=== PATIENT | male | born 1940 | race Caucasian/White ===

== ENCOUNTER → 2018-03-04 11:22 | Outpatient (CLI) | payer MEDICARE, OTHER, SELFPAY ==
--- NOTE | 2018-03-04 11:33 | RAD_ITS ---
STUDY: X-RAY - CERVICAL SPINE REASON FOR EXAM: Male, 77 years old. Neck pain TECHNIQUE: 8 view(s) of the cervical spine were obtained. COMPARISON: None FINDINGS: There are degenerative changes of the anterior atlantoaxial articulation. Normal odontoid process. There is an exaggerated cervical lordosis. There is moderate C4 on C5 anterolisthesis which is stable on flexion and extension views. No vertebral body fracture. Facet joints are in normal alignment demonstrate moderate diffuse degenerative change. There is no vertebral body fracture. There is moderate loss of height with prominent endplate change and spur formation noted within the intervertebral disc spaces from C4 through C7. Moderate degenerative change of bilateral uncovertebral joints noted from C3 through C7. Mild to moderate neural foraminal canal narrowing noted at C3-C4, C4-C5, and C5-C6 on the right. The neural foramina are not well profiled on the left. The soft tissue structures are unremarkable. RAD/Cerv Spine Obl/Flex/Ext Comp IMPRESSION: 1. No evidence of acute injury to the cervical spine. 2. 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 Electronically Signed: Patrick Grant MD at 5:04 EDT Tel , Service support ,
== END ==
PROVIDERS: Family Provider Family Medicine; PCP Family Medicine; Visit Provider Psychiatry & Neurology Neurology
DX: M54.2 Cervicalgia (principal)
CPT/HCPCS: 72052

== ENCOUNTER → 2018-06-24 16:15 | Outpatient (CLI) | payer MEDICARE, OTHER, SELFPAY | PROVIDERS: Family Provider Family Medicine; PCP Family Medicine; Visit Provider Internal Medicine Nephrology | DX: I12.9 Hypertensive chronic kidney disease with stage 1 through stage 4 chronic kidney disease, or unspecified chronic kidney disease (principal); N18.3 Chronic kidney disease, stage 3 (moderate) | CPT/HCPCS: 76770 ==

== ENCOUNTER → 2020-05-11 13:59 | Outpatient (CLI) | payer MEDICARE, OTHER, SELFPAY ==
--- NOTE | 2020-05-11 14:03 | CT_ITS ---
STUDY: LOW DOSE CT LUNG CANCER SCREENING REASON FOR EXAM: Male, 79 years old. LUNG SCREEN SMOKER 1PPW X 59 YEARS RADIATION DOSAGE (If Supplied By Facility): CTDIvol = ( 2.01 ) mGy, DLP = ( 74.49 ) mGycm TECHNIQUE: No contrast was administered. Low dose technique was utilized (average mAS-38 and kVp 120). 1.25 mm axial source images with a slice interval of 1.25-mm were reconstructed in lung windows. 2.5 mm axial source images with a slice interval of 2.5-mm were reconstructed in lung windows. 5.0 mm axial source images with a slice interval of 5.0-mm were reconstructed in soft tissue windows. Nodule measured using lung windows on PACS and/or independent workstation with automated measurement of minimum and maximum diameter. Nodule measurement reported as average diameter rounded to the nearest whole number. Growth is defined as an increase ins size of greater than 1.5 mm. COMPARISON: None. FINDINGS: Lung windows show hyperexpanded lungs with emphysematous blebs in both lung nelson. There is fibrotic scarring in the right upper lobe. No suspicious noncalcified mass or nodule. No organized infiltrate, or suspicious groundglass opacifications. There are calcified coronary vessels. There are degenerative bony changes. Peripheral calcifications in the thoracic aorta without aneurysm. CT/Low Dose CT Lung Screening IMPRESSION: Lung-RADS category 2 - Continue annual screening with LDCT in 12 months. IMPORTANT NOTES FOR USE: ACR Lung-RADS Version 1.0 Assessment Categories Release Date: February 13, 2014 Category: Coded 0-4 bases on nodule(s) with highest degree of suspicion. Negative screen is defined as categories 1 and 2; a positive screen is defined as categories 3 and 4. Category 3 and 4A nodules that are unchanged on interval CT should be coded as category 2, and individuals returned to screening in 12 months. Category 4X: Category 3 or 4 nodules with additional imaging findings that increase the suspicion of lung cancer, such as spiculation, GGN that doubles in size in 1 year, enlarged lymph notes, etc. Category Modifiers: S (significant finding unrelated to lung cancer) and C (prior history of treated lung cancer) may be added to the 0-4 Lung-RADS Electronically Signed: Brandt Bridges MD at 14:55 EDT , Service support ,
== END ==
PROVIDERS: PCP Family Medicine; Referring Provider Internal Medicine Pulmonary Disease; Visit Provider Internal Medicine Pulmonary Disease
DX: Z87.891 Personal history of nicotine dependence (principal)
CPT/HCPCS: G0297

== ENCOUNTER → 2020-11-06 15:19 | Outpatient (CLI) | payer MEDICARE, OTHER, SELFPAY ==
[2020-11-08 14:12] LABS: Alpha Antitrypsin Serum 155 mg/dL (101-187)
== END ==
PROVIDERS: PCP Family Medicine; Referring Provider Internal Medicine Pulmonary Disease; Visit Provider Internal Medicine Pulmonary Disease
DX: J44.9 Chronic obstructive pulmonary disease, unspecified (principal); I10 Essential (primary) hypertension
CPT/HCPCS: 36415; 82103

== ENCOUNTER → 2021-05-13 12:21 | Outpatient (CLI) | payer MEDICARE, OTHER, SELFPAY ==
--- NOTE | 2021-05-13 12:32 | CT_ITS ---
STUDY: LOW DOSE CT LUNG CANCER SCREENING REASON FOR EXAM: Male, 80 years old. HX SMOKER. The patient smoked one quarter pack per day for 60 years. RADIATION DOSAGE (If Supplied By Facility): CTDIvol = ( 1.59 ) mGy, DLP = ( 56.79 ) mGycm TECHNIQUE: No contrast was administered. Low dose technique was utilized (average mAS-38 and kVp 120). 1.25 mm axial source images with a slice interval of 1.25-mm were reconstructed in lung windows. 2.5 mm axial source images with a slice interval of 2.5-mm were reconstructed in lung windows. 5.0 mm axial source images with a slice interval of 5.0-mm were reconstructed in soft tissue windows. Nodule measured using lung windows on PACS and/or independent workstation with automated measurement of minimum and maximum diameter. Nodule measurement reported as average diameter rounded to the nearest whole number. Growth is defined as an increase ins size of greater than 1.5 mm. COMPARISON: Comparison is made with prior study dated 05/11/2020. NODULES: Stable 2 mm noncalcified nodule in the peripheral lateral aspect of the right upper lobe as seen on axial image #82. Stable tiny granulomas in the posterolateral aspect of the right upper lobe. Emphysema: Hyperinflation. Diffuse emphysematous changes with centrilobular emphysema worse in the upper lobes. Stable scarring in the right upper lobe as well as in the medial aspect of the right middle lobe. Stable mild linear scarring at the left lung base. Endobronchial lesion: None Aorta: Atherosclerotic calcification. Coronary arteries: Calcified coronary arteries. Mediastinal nodes: Small benign appearing mediastinal lymph nodes. Other chest and abdominal findings: Increased thoracic kyphosis. Demineralization of the thoracic vertebrae with loss of height of multiple thoracic vertebrae. Levoscoliosis. CT/Low Dose CT Lung Screening IMPRESSION: Lung-RADS category 2 - Continue annual screening with LDCT in 12 months. IMPORTANT NOTES FOR USE: ACR Lung-RADS Version 1.1 Assessment Categories Release Date: 2018 Category: Coded 0-4 bases on nodule(s) with highest degree of suspicion. Negative screen is defined as categories 1 and 2; a positive screen is defined as categories 3 and 4. Category 3 and 4A nodules that are unchanged on interval CT should be coded as category 2, and individuals returned to screening in 12 months. Category 4X: Category 3 or 4 nodules with additional imaging findings that increase the suspicion of lung cancer, such as spiculation, GGN that doubles in size in 1 year, enlarged lymph notes, etc. Category Modifiers: S (significant finding unrelated to lung cancer) Electronically Signed: Doroteo Davis MD at 15:06 EDT , Service support ,
== END ==
PROVIDERS: PCP Family Medicine; Referring Provider Internal Medicine Pulmonary Disease; Visit Provider Internal Medicine Pulmonary Disease
DX: Z87.891 Personal history of nicotine dependence (principal)
CPT/HCPCS: 71271

== ENCOUNTER → 2021-05-16 14:28 | Outpatient (CLI) | payer MEDICARE, OTHER, SELFPAY ==
[2021-05-18 11:36] LABS: Alpha Antitrypsin Serum 148 mg/dL (101-187)
== END ==
PROVIDERS: PCP Family Medicine; Referring Provider Internal Medicine Pulmonary Disease; Visit Provider Internal Medicine Pulmonary Disease
DX: E88.01 Alpha-1-antitrypsin deficiency (principal)
CPT/HCPCS: 36415; 82103

== ENCOUNTER → 2021-08-29 14:44 | Outpatient (CLI) | payer MEDICARE, OTHER, SELFPAY ==
[2021-08-31 11:13] LABS: AFP, Tumor Marker 11.6 ng/mL (0.0-8.3)
== END ==
PROVIDERS: PCP Family Medicine; Referring Provider Internal Medicine Pulmonary Disease; Visit Provider Internal Medicine Pulmonary Disease
DX: E88.01 Alpha-1-antitrypsin deficiency (principal)
CPT/HCPCS: 36415; 82105

== ENCOUNTER 2021-10-21 20:35 | Emergency (ER) | payer MEDICARE, OTHER, SELFPAY ==
[2021-10-21 20:36] VITALS: BP 162/104; PULSE 95; RESP 18; TEMP 36.7; O2SAT 92; BMI 21.1
[2021-10-21 22:37] VITALS: BP 171/84; PULSE 65; RESP 16; O2SAT 94
--- NOTE | 2021-10-21 23:09 | RAD_ITS ---
STUDY: X-RAY CHEST REASON FOR EXAM: Male, 80 years old. Cough and weakness. TECHNIQUE: AP COMPARISON: 05/13/2021 CT chest. FINDINGS: No evidence of pneumonia, pulmonary edema, pneumothorax or pleural effusion. Subsegmental linear atelectasis/scarring left lung base unchanged. Mild underlying emphysema. Patient''s chin partially obscures the left lung apex. Cardiac silhouette, hilar and mediastinal contours with no acute findings. Heart size normal. Atherosclerosis and tortuosity of the thoracic aorta. The mediastinum and hilar contours are distorted by scoliosis and positioning but not significantly changed. Degenerative osseous changes with chronic thoracic vertebral body compression fractures and moderate S-shaped scoliosis. No acute osseous abnormality. RAD/Chest 1 View (Portable) IMPRESSION: No acute findings. Electronically Signed: Issac Sanchez MD at 23:53 EST Tel , Service support ,
[2021-10-21 23:37] LABS: Hematocrit 38.4 % (40-54); Hemoglobin 12.6 g/dL (13.0-16.5); Mean Corp Hgb Conc 32.8 g/dL (32-36); Mean Corpuscular Hgb 30.5 pg (27.0-32.0); Mean Platelet Vol. 10.9 fl (6.2-12.0); POSITIVE MORPHOLOGY YES; Platelet Count 202 K/mm3 (150-450); RBC Distribution Width CV 15.9 % (11.6-14.6); RBC Distribution Width SD 54.4 fl (35.1-43.9); Red Blood Count 4.13 M/mm3 (4.6-6.2); White Blood Count 8.9 K/mm3 (4.4-11.0)
[2021-10-21 23:54] LABS: Differential Indicated MANUAL DIFF
[2021-10-21 23:56] VITALS: BP 143/91; PULSE 66; RESP 16; O2SAT 94
[2021-10-22 00:07] LABS: Ammonia < 10.0 umol/L (11-32)
[2021-10-22 00:11] LABS: Neutrophil-Band 1 % (0-5); Neutrophil-Segmented 75 % (47-70); Total Cells Counted 100 (MANUAL DIFF)
[2021-10-22 00:12] LABS: AST(SGOT) 27 U/L (15-37); Absolute Lymphocyte Count 1.16 X10^3/uL (0.83-4.51); Absolute Neutrophil Count 6.8 X10^3/uL (2.0-7.7); Alanine Aminotransfer ALT/SGPT 19 U/L (16-61); Albumin, Serum 3.4 g/dL (3.2-5.0); Alkaline Phosphatase 51 U/L (45-117); Anion Gap 7 (5-15); BUN 25 mg/dL (7-18); BUN/Creat Ratio 17.6 RATIO (10-20); Bilirubin, Direct 0.17 mg/dL (0.00-0.30); Calcium,Total 10.2 mg/dL (8.5-10.1); Chloride 108 mmol/L (98-107); Creatinine, Serum 1.42 mg/dL (0.70-1.30); EST Glomerular Filtration Rate 51 mL/min (>60); Eosinophil 2 % (0-5); Est Glom Filt Rate - Afr Amer 62 mL/min (>60); Estimated Creatinine Clearance 37.13 ml/min; Globulin 4.2 g/dL (2.2-4.2); Glucose 109 mg/dL (74-106); Lymphocyte 13 % (19-41); Lymphocyte # 1.16 X10^3/ul (0.83-4.51); Monocyte 9 % (0-10); Neutrophil # 6.79 X10^3/uL (2.7-7.7); Platelet Estimate ADEQUATE (ADEQ); Potassium 4.1 mmol/L (3.5-5.1); Protein, Total 7.6 g/dL (6.4-8.2); Red Cell Morphology NORM C+C NORMAL (NORM C&C); Sodium Level 139 mmol/L (136-145); Thyroid Stim Hormone (TSH) 1.43 uIU/mL (0.358-3.74)
[2021-10-22 01:07] LABS: Mucous, Urine 0 SEEN /hpf (<or=2+); Squamous Epithelial Cells - UA 0 SEEN /hpf (0-5); White Blood Cells 0 SEEN /hpf (0-5)
[2021-10-22 01:11] LABS: Color, Urine Yellow (Yellow); Glucose, Dipstick Normal (Normal); Ketone-Dipstick 5 mg/dl (Negative); Leukocyte Esterase-Dipstick Negative /ul (Negative); Nitrite-Dipstick Negative (Negative); Occult Blood-Urine 10 /ul (Negative); Protein-Dipstick 30 mg/dl (Negative); Urine Bilirubin Dipstick Negative (Negative); Urine Clarity Clear (Clear); Urine Urobilinogen Normal (Normal)
[2021-10-22 01:21] LABS: Bacteria 1+ /hpf (None Seen); Red Blood Cells-Urine 0-5 SEEN /hpf (0-5)
[2021-10-22 01:35] VITALS: BP 152/67
--- NOTE | 2021-10-22 01:35 | EX.ED.DYSGE1 ---
HPI History of Present Illness Chief Complaint: Confusion Narrative Narrative: Patient is a 80-year-old male with past medical history of Alzheimer's dementia. He stays with his at home who acts as his caregiver. states in the last day he has had some decreased appetite and oral intake. She states that he has just been slightly different than his baseline. She states that she is concerned that he could become dehydrated as he has not been eating or drinking as much in the last day and with his mild change in mental status was concern for infection as well and therefore brings him in for evaluation [facility] Medical History (Updated 10/22/21 @ 02:12 by Osei Ramey) Alzheimer disease Home Medications aspirin [Maada Childrens Aspirin] 81 mg PO DAILY 10/21/21 [History Last Taken Unknown] atenolol 100 mg PO BID 10/21/21 [History Last Taken Unknown] azelastine 1 spray INTRANASAL DAILY 10/21/21 [History Last Taken Unknown] budesonide 0.5 mg INHALATION DAILY 10/21/21 [History Last Taken Unknown] furosemide [Lasix] 40 mg PO DAILY 10/21/21 [History Last Taken Unknown] hydralazine 25 mg PO BID 10/21/21 [History Last Taken Unknown] ipratropium-albuterol 3 ml INHALATION QHS 10/21/21 [History Last Taken Unknown] magnesium 500 mg PO DAILY 10/21/21 [History Last Taken Unknown] mecobalamin (vitamin B12) [B12 Active] 1,000 mcg PO DAILY 10/21/21 [History Last Taken Unknown] memantine 10 mg PO BID 10/21/21 [History Last Taken Unknown] hxxwzymf-ofi-JI-lycopen-lutein [Centrum Silver Men] 1 tab PO DAILY 10/21/21 [History Last Taken Unknown] rivastigmine [Exelon Patch] 13.3 mg TRANSDERMAL DAILY 10/21/21 [History Last Taken Unknown] simvastatin 40 mg PO QHS 10/21/21 [History Last Taken Unknown] cephalexin 500 mg PO TID 7 Days #21 cap 10/22/21 [Rx Last Taken Unknown] Allergy/AdvReac Type Severity Reaction Status Date / Time No Known Allergies Allergy Verified 10/21/21 20:38 Surgical History no surgical history Social History Smoking Status: Current some day smoker tobacco type: cigarettes ROS ROS ED ROS Narrative Please note review of systems may be unreliable secondary to patient's dementia and confusion Constitutional Constitutional ED: Denies chills or fever(s) ENT ENT ED: Denies sore throat Cardiovascular Cardiovascular: Denies chest pain Respiratory/Chest Respiratory/Chest: Denies cough or dyspnea Gastrointestinal Gastrointestinal: Denies abdominal pain, diarrhea, nausea or vomiting Genitourinary Genitourinary ED: Denies dysuria Musculoskeletal Musculoskeletal: Denies myalgias Integumentary Denies rash Neurologic Neurologic: Denies headache(s) Hematologic/Lymphatic Hematologic/Lymphatic: Denies easy bleeding or easy bruising EXAM Physical Exam Const Vital Signs: 10/21/21 20:36 10/21/21 22:37 10/21/21 23:56 Temperature 98.1 F Temperature Source Temporal Pulse Rate 95 65 66 Respiratory Rate 18 16 16 Blood Pressure 162/104 H 171/84 H 143/91 H Blood Pressure Mean 123 113 108 Pulse Ox 92 94 94 Oxygen Delivery Method Room Air Room Air Room Air Positive well nourished and well developed General Appearance ED: well developed HEENT Reports dry mucous membranes Mouth ED: Yes dry mucous membranes Mouth: dry mucous membranes Eyes PERRL and EOMs intact bilaterally Neck supple Neck Narrative: No meningeal signs Resp normal respiratory effort and clear to auscultation bilaterally Cardio regular rate and regular rhythm GI normal to inspection, nondistended, normoactive bowel sounds, non-tender, non-distended and no masses Auscultation: normoactive bowel sounds Palpation: soft Extremity normal to inspection Neuro CN's II-XII intact bilaterally Neuro Narrative: Patient is awake and alert but confused. He is oriented to person but not place and time otherwise are no signs of focal neurologic deficit Sensorium / Orientation: alert Motor Exam: strength 5/5 throughout Psych Psych Narrative: Patient has a depressed/flat affect Skin no rashes or lesions noted Skin Narrative: Skin turgor slightly increased MDM MDM MDM Narrative Medical decision making narrative: Patient presented to the ER afebrile satting in the low to mid 90s on room air. His history and exam is consistent with a delirium worsening his dementia. Secondary to this I did elect to perform a basic work-up. Work-up showed that he has a mild urinary tract infection as well as Covid. Both could be responsible for his change in mental status. However at this time he is not hypoxic and he does not have changes to suggest urosepsis or acute kidney injury. Therefore do not feel there is need for placement and patient can be discharged home Lab Data Attestation: I reviewed the patient's lab results. Labs: Laboratory Results - last 24 hr 10/21/21 10/21/21 10/21/21 23:25 23:25 23:25 WBC 8.9 RBC 4.13 L Hgb 12.6 L Hct 38.4 L MCV 93.0 MCH 30.5 MCHC 32.8 RDW Std Deviation 54.4 H RDW Coeff of Bola 15.9 H Plt Count 202 MPV 10.9 Neut % (Auto) Not Reportable Absolute Neuts (auto) 6.8 Absolute Lymphs (auto) 1.16 Total Counted 100 Neutrophils % (Manual) 75 H Band Neutrophils % 1 Lymphocytes % (Manual) 13 L Monocytes % (Manual) 9 Eosinophils % (Manual) 2 Platelet Estimate ADEQUATE RBC Morphology NORM C+C Sodium 139 Potassium 4.1 Chloride 108 H Carbon Dioxide 24.0 Anion Gap 7 BUN 25 H Creatinine 1.42 H Estim Creat Clear Calc 37.13 Est GFR (MDRD) Af Amer 62 Est GFR (MDRD) Non-Af 51 L BUN/Creatinine Ratio 17.6 Glucose 109 H Calcium 10.2 H Total Bilirubin 0.50 Direct Bilirubin 0.17 AST 27 ALT 19 Alkaline Phosphatase 51 Ammonia < 10.0 L Total Protein 7.6 Albumin 3.4 Globulin 4.2 TSH 1.43 Urine Color Urine Clarity Urine pH Ur Specific Brinklow Urine Protein Urine Glucose (UA) Urine Ketones Urine Occult Blood Urine Nitrite Urine Bilirubin Urine Urobilinogen Ur Leukocyte Esterase Urine RBC Urine WBC Ur Squamous Epith Cells Urine Bacteria Urine Mucus 10/22/21 01:00 WBC RBC Hgb Hct MCV MCH MCHC RDW Std Deviation RDW Coeff of Bola Plt Count MPV Neut % (Auto) Absolute Neuts (auto) Absolute Lymphs (auto) Total Counted Neutrophils % (Manual) Band Neutrophils % Lymphocytes % (Manual) Monocytes % (Manual) Eosinophils % (Manual) Platelet Estimate RBC Morphology Sodium Potassium Chloride Carbon Dioxide Anion Gap BUN Creatinine Estim Creat Clear Calc Est GFR (MDRD) Af Amer Est GFR (MDRD) Non-Af BUN/Creatinine Ratio Glucose Calcium Total Bilirubin Direct Bilirubin AST ALT Alkaline Phosphatase Ammonia Total Protein Albumin Globulin TSH Urine Color Yellow Urine Clarity Clear Urine pH 7.0 Ur Specific [place]ink[place] 1.010 Urine Protein 30 H Urine Glucose (UA) Normal Urine Ketones 5 H Urine Occult Blood 10 H Urine Nitrite Negative Urine Bilirubin Negative Urine Urobilinogen Normal Ur Leukocyte Esterase Negative Urine RBC 0-5 SEEN Urine WBC 0 SEEN Ur Squamous Epith Cells 0 SEEN Urine Bacteria 1+ Urine Mucus 0 SEEN Radiography Diagnostic Testing: Clinical Impression(s) from Imaging Studies Chest X-Ray 10/21/21 23:09 IMPRESSION: No acute findings. Electronically Signed: Issac Sanchez MD at 23:53 EST Tel , Service support , Discharge Plan Triage Chief Complaint: Confusion ED Provider: Abel Zamorano Dx/Rx/DC Orders Clinical Impression: Encephalopathy due to COVID-19 virus, UTI (urinary tract infection) Instructions: Coronavirus Disease 2019 (COVID-19): Caring for Yourself or Others, Urinary Tract Infections in Men, ED Confusion Prescriptions: New cephalexin 500 mg capsule 500 mg PO TID 7 Days Qty: 21 RF: 0 No Action furosemide [Lasix] 40 mg Tablet 40 mg PO DAILY RF: 0 ipratropium-albuterol 0.5 mg-3 mg(2.5 mg base)/3 mL Solution For Nebulization 3 ml INHALATION QHS RF: 0 atenolol 100 mg Tablet 100 mg PO BID RF: 0 hydralazine 25 mg Tablet 25 mg PO BID RF: 0 simvastatin 40 mg Tablet 40 mg PO QHS RF: 0 budesonide 0.5 mg/2 mL Suspension For Nebulization 0.5 mg INHALATION DAILY RF: 0 aspirin [Amada Childrens Aspirin] 81 mg Tablet,Chewable 81 mg PO DAILY RF: 0 azelastine 137 mcg (0.1 %) Aerosol,[place] 1 spray INTRANASAL DAILY RF: 0 memantine 10 mg Tablet 10 mg PO BID RF: 0 Centrum Silver Men 300-600-300 mcg Tablet 1 tab PO DAILY RF: 0 rivastigmine [Exelon Patch] 13.3 mg/24 hour Patch 24 Hour 13.3 mg TRANSDERMAL DAILY RF: 0 magnesium 500 mg Tablet 500 mg PO DAILY RF: 0 B12 Active 1,000 mcg Tablet,Chewable 1,000 mcg PO DAILY RF: 0 Primary Care Provider: Telly Parrish Referrals: Telly Parrish MD [Primary Care Provider] - Disposition Disposition: Home, Self Care Discharge Date/Time: 10/22/21 03:25
[2021-10-22 02:08] VITALS: BP 142/63; PULSE 76; RESP 20; O2SAT 94
[2021-10-22] MEDS: Ceftriaxone 1 GM/50 ML BAG IV (02:10)
[2021-10-22 03:23] VITALS: BP 117/63; PULSE 47; RESP 20; O2SAT 93
== END 2021-10-22 03:25 | disposition home or self-care (01) ==
PROVIDERS: Emergency Provider Emergency Medicine; PCP Family Medicine; Visit Provider Emergency Medicine
DX: U07.1 COVID-19 (principal); G30.9 Alzheimer's disease, unspecified; G93.49 Other encephalopathy; N39.0 Urinary tract infection, site not specified; F17.210 Nicotine dependence, cigarettes, uncomplicated; Z79.899 Other long term (current) drug therapy
CPT/HCPCS: 71045; 80048; 80076; 81001; 82140; 84443; 85025; 87086; 87088; 87426; 96365; 99283; J7030; J7040; J7050

== ENCOUNTER 2022-03-19 11:18 | Outpatient (CLI) | payer MEDICARE, OTHER, SELFPAY ==
[2022-03-21 08:52] LABS: AFP, Tumor Marker 10.6 ng/mL (0.0-8.4)
== END 2022-03-19 23:59 | disposition home or self-care (01) ==
PROVIDERS: PCP Family Medicine; Referring Provider Internal Medicine Pulmonary Disease; Visit Provider Internal Medicine Pulmonary Disease
DX: E88.01 Alpha-1-antitrypsin deficiency (principal)
CPT/HCPCS: 36415; 82105

== ENCOUNTER → 2022-04-25 | Outpatient (CLI) | payer MEDICARE, OTHER, SELFPAY ==
[2022-04-25 17:51] LABS: AST(SGOT) 27 U/L (15-37); Alanine Aminotransfer ALT/SGPT 22 U/L (16-61); Albumin, Serum 3.6 g/dL (3.2-5.0); Alkaline Phosphatase 48 U/L (45-117); Globulin 4.1 g/dL (2.2-4.2); Protein, Total 7.7 g/dL (6.4-8.2)
== END | disposition home or self-care (01) ==
LOC: MTLAB 15:30
PROVIDERS: PCP Family Medicine; Referring Provider Internal Medicine Pulmonary Disease; Visit Provider Internal Medicine Pulmonary Disease
DX: Z79.899 Other long term (current) drug therapy (principal)
CPT/HCPCS: 36415; 80076

== ENCOUNTER → 2022-05-14 | Outpatient (CLI) | payer MEDICARE, OTHER, SELFPAY ==
--- NOTE | 2022-05-14 15:11 | CT_ITS ---
STUDY: LOW DOSE CT LUNG CANCER SCREENING REASON FOR EXAM: Male, 81 years old. [id number]. Patient''s pump catheter one half pack of cigarettes per day for 65 years. RADIATION DOSAGE (If Supplied By Facility): CTDIvol = ( 2.01 ) mGy, DLP = ( 66.95 ) mGycm TECHNIQUE: No contrast was administered. Low dose technique was utilized (average mAS-38 and kVp 120). 1.25 mm axial source images with a slice interval of 1.25-mm were reconstructed in lung windows. 2.5 mm axial source images with a slice interval of 2.5-mm were reconstructed in lung windows. 5.0 mm axial source images with a slice interval of 5.0-mm were reconstructed in soft tissue windows. COMPARISON: Comparison is made with prior study dated 05/13/2021. NODULES: Stable 2 mm noncalcified nodule in the peripheral lateral aspect of the right upper lobe as seen on axial image #89. Emphysema: Hyperinflation. Diffuse emphysematous changes with centrilobular emphysema. Stable scarring and bullous formation in the left lower lung. Mild scarring at the right lung base. Endobronchial lesion: Aorta: Tortuosity and calcification of the thoracic aorta. CORONARY ARTERIES: Coronary artery calcification is seen. Heart: Unremarkable Pulmonary artery: Unremarkable Mediastinal nodes: Small benign appearing mediastinal lymph nodes. Other chest and abdominal findings: Increased kyphosis. Demineralization of multiple thoracic vertebrae with partial collapse of the mid dorsal vertebrae. CT/Low Dose CT Lung Screening IMPRESSION: Lung-RADS category 2 - Continue annual screening with LDCT in 12 months. IMPORTANT NOTES FOR USE: ACR Lung-RADS Version 1.1 Assessment Categories Release Date: 2018 Category: Coded 0-4 bases on nodule(s) with highest degree of suspicion. Negative screen is defined as categories 1 and 2; a positive screen is defined as categories 3 and 4. Category 3 and 4A nodules that are unchanged on interval CT should be coded as category 2, and individuals returned to screening in 12 months. Category 4X: Category 3 or 4 nodules with additional imaging findings that increase the suspicion of lung cancer, such as spiculation, GGN that doubles in size in 1 year, enlarged lymph notes, etc. Category Modifiers: S (significant finding unrelated to lung cancer) Electronically Signed: Doroteo Davis MD at 15:39 EDT ,
== END | disposition home or self-care (01) ==
LOC: CT 15:09
PROVIDERS: Referring Provider Internal Medicine Pulmonary Disease; Visit Provider Internal Medicine Pulmonary Disease
DX: Z87.891 Personal history of nicotine dependence (principal)
CPT/HCPCS: 71271

== ENCOUNTER 2022-08-18 13:00 | Outpatient (RCR) | payer MEDICARE, OTHER, SELFPAY ==
[2022-07-31 10:17] VITALS: BP 128/75; PULSE 86; TEMP 35.8
--- NOTE | 2022-07-31 12:38 | PCM.WC.HP ---
History of Present Illness Date of Service: 07/31/22 Chief Complaint: Right lateral lower extremity wound History of Wound: Patient is a 81-year-old male who presents to the wound care center for a right lower extremity lateral wound. He states he was following with his PCP Dr. Yuri DO for this leg wound of 4 weeks duration. They were instructed to continue elevation of lower extremities to control his bilateral lower extremity edema. PCP increased furosemide from 20 mg to 40 mg for 7 days to aid in decreasing edema however this was not effective. Compression stockings were discussed by his PCP. states they have just been applying Neosporin and a Band-Aid but it has not been improving. Patient was referred to the wound care center by his PCP for nonhealing right lower lateral extremity ulceration. ON LICENSE OF [facility] Medical History (Updated 07/31/22 @ 12:[address] Kurt Lopez, DPM) Alzheimer disease Home Medications aspirin 81 mg chewable tablet 81 mg PO DAILY 10/21/21 [History Last Taken Unknown] atenolol 100 mg tablet 100 mg PO BID 10/21/21 [History Last Taken Unknown] azelastine 137 mcg (0.1 %) nasal spray aerosol 1 spray intranasal DAILY 10/21/21 [History Last Taken Unknown] budesonide 0.5 mg/2 mL suspension for nebulization 0.5 mg inhalation DAILY 10/21/21 [History Last Taken Unknown] furosemide 40 mg tablet (Lasix) 40 mg PO DAILY 10/21/21 [History Last Taken Unknown] hydralazine 25 mg tablet 25 mg PO BID 10/21/21 [History Last Taken Unknown] ipratropium 0.5 mg-albuterol 3 mg (2.5 mg base)/3 mL nebulization soln 3 ml inhalation QHS 10/21/21 [History Last Taken Unknown] magnesium 500 mg tablet 500 mg PO DAILY 10/21/21 [History Last Taken Unknown] mecobalamin (vitamin B12) 1,000 mcg chewable tablet (B12 Active) 1,000 mcg PO DAILY 10/21/21 [History Last Taken Unknown] memantine 10 mg tablet 10 mg PO BID 10/21/21 [History Last Taken Unknown] ssooybfl-asx-uxirl acid 300 mcg-lycopene 600 mcg-lutein 300 mcg tablet (Centrum Silver Men) 1 tab PO DAILY 10/21/21 [History Last Taken Unknown] rivastigmine 13.3 mg/24 hour transdermal patch (Exelon Patch) 13.3 mg transdermal DAILY 10/21/21 [History Last Taken Unknown] simvastatin 40 mg tablet 40 mg PO QHS 10/21/21 [History Last Taken Unknown] cephalexin 500 mg capsule 500 mg PO TID 7 days #21 caps 10/22/21 [Rx Last Taken Unknown] Allergy/AdvReac Type Severity Reaction Status Date / Time No Known Allergies Allergy Verified 10/21/21 20:38 Social History Smoking Status: Current some day smoker tobacco type: cigarettes ROS Constitutional Constitutional: Denies anorexia, chills, fatigue, fever(s) or malaise Eyes Eyes: Denies blurry vision, change in vision or double vision ENT HEENT: Denies nasal congestion, nasal discharge or sore throat Cardiovascular Cardiovascular: Denies chest pain, claudication or palpitations Respiratory/Chest Respiratory/Chest: Denies cough, shortness of breath at rest or wheezing Gastrointestinal Gastrointestinal: Denies abdominal pain, constipation, diarrhea, nausea or vomiting Genitourinary Genitourinary: Denies dysuria, hematuria, urinary frequency, urinary hesitancy, urinary incontinence or urinary urgency Musculoskeletal Musculoskeletal: Denies joint pain, joint stiffness, joint swelling, numbness or tingling Integumentary Integumentary: Denies jaundice, pruritus or rash Neurologic Neurologic: Denies dizziness, numbness or seizures Endocrine Endocrinology: Denies cold intolerance or heat intolerance Hematologic/Lymphatic Hematologic/Lymphatic: Denies easy bleeding, easy bruising or lymphadenopathy Vital Signs Vital Signs Vital Signs: 07/31/22 10:17 Temperature 96.5 F L Temperature Source Temporal Pulse Rate 86 Blood Pressure 128/75 H Blood Pressure Mean 92 Blood Pressure Source Monitor Blood Pressure Position Sitting Blood Pressure Location Right Arm Physical Exam Const alert, oriented x3 and no apparent distress General Appearance: cooperative HEENT normocephalic Eyes General Eye: normal appearance of both eyes Neck General: normal visual inspection Lymph Lymphatic: no lymphadenopathy noted and no lymphedema noted Resp normal respiratory effort Cardio regular rate and regular rhythm Extremity normal capillary refill, no joint enlargement, no calf tenderness and no pedal edema General Extremity: edema bilateral Peripheral Pulses: Yes posterior tibial pulses present bilateral and dorsalis pedis pulses present bilateral Skin no rashes or lesions noted, skin turgor normal and no jaundice General Skin Exam: venous stasis Wound Narrative: Right lateral lower extremity ulceration noted. Ulceration demonstrates mixed fiber granular layer. No signs of infection. No palpable bogginess, no palpable fluctuance, no purulent drainage, no malodor, no erythema. Neuro oriented x3 and moves all extremities Debridement Note Debridement Note Wound debrided: Right lateral lower extremity and right anterior lower extremity Laterality: Right Wound Grade/Stage: Rendon stage I Type of Debridement: Excisional debridement Anesthesia Used: 5% Lidocaine Gel Depth: Down to and including healthy tissue and in the subcutaneous layer Percentage of wound debrided: 100 Instrument Used: 3mm curette and - (1 mm curette) Tissue Removed: Fibrous, devitalized subcutaneous, biofilm, slough Severity: Fat Layer Exposed Amount of bleeding with debridement: Mild Bleeding Controlled with: Compression and gauze Patient tolerated procedure: Patient tolerated procedure well Post-Debridement Measurements and Additional Note: Post-Debridement Measurements/Treatment WC - Nurse 1 - General Ulcer Assessment Start: 07/31/22 10:17 Freq: Status: Active Protocol: HUGO Activity Type Activity Date Activity User E-sign Co-sign Detail Recorded Client Recorded Date Recorded By Document 07/31/22 10:17 FABIAN [id number] 07/31/22 10:30 FABIAN 07/31/22 10:17 WC - Today's Visit Information Type of service Initial Visit Arrival Mode Ambulatory Patient Identification Verified (Name & Yes ) Vital Signs Temperature (97.8 F-99.1 F) 96.5 F L Temperature Source Temporal Pulse Rate (60-100) 86 Pulse Location Monitor Blood Pressure (90/60-120/80) 128/75 H Blood Pressure Mean 92 Source Monitor Position Sitting Blood Pressure Location Right Arm History Since Last Visit- (Skip if this is Patient's initial visit) Have you changed medications since your No last visit? Any new allergies or adverse reactions No Had a fall/change in ADL's that may No increase risk of falls Signs or symptoms of abuse and/or No neglect since last visit Have you been in the hospital since your No last visit? Has dressing in place as prescribed Yes Has compression in place as prescribed N/A Has offloadiing in place as prescribed N/A Experienced any changes in pain level or No management Left Footwear Regular Shoe Right Footwear Regular Shoe Pain Scale: 0-10 Numeric Is Patient Pain Free? Yes - Nurse 1 - General Ulcer Measurement Start: 07/31/22 10:17 Freq: Status: Active Protocol: Activity Type Activity Date Activity User E-sign Co-sign Detail Recorded Client Recorded Date Recorded By Document 07/31/22 10:17 [id number] 07/31/22 10:30 FABIAN 07/31/22 10:17 Wound Center Nurse 1 #1 Right Lower Extremity -Current Size (cm) - Length 1 -Current Size (cm) - Width 2.3 -Current Size (cm) - Depth 0.1 -Total Square Cm 2.3 -Exudate Amt Small -Exudate Type Serosanguineous -Wound Margin Distinct, Outline Attached -Granulation Amt Small (1-33%) -Granulation Quality [place] -Necrosis Amt Medium (34-66%) -Necrotic Tissue Type Adherent Slough -Texture (Briana-wound Skin Appearance) Assessed, Scarring -Moisture (Briana-wound Skin Appearance) No Abnormality, Assessed -Color (Briana-wound Skin Appearance) No Abnormality, Assessed -Temperature (Briana-wound Skin No Abnormality Appearance) (Pt Warm) -Tenderness on Palpation (Briana-wound No Skin Appearance) -Ulcer Cleansing Rinsed/ Irrigated with Saline -Foul Odor after Cleansing No -Anesthetic Used 5% Lidocaine Gel Right Calf (cm) 36.5 Right Ankle (cm) 25.6 Left Calf (cm) 37.2 Left Ankle (cm) 28 WC - Nurse 3 - General Ulcer D/C NN Start: 07/31/22 10:17 Freq: Status: Active Protocol: Activity Type Activity Date Activity User E-sign Co-sign Detail Recorded Client Recorded Date Recorded By Document 07/31/22 11:07 [id number] 07/31/22 11:08 FABIAN 07/31/22 11:07 Wound Care Nurse 3 #1 Right Lower Extremity -Ulcer Cleansing Rinsed/ Irrigated with Saline -Primary Dressing Applied Promogran Renetta Matter -Primary Dressing Covered/Secured with Dry Gauze, Secured with Tape -Promogran Renetta Matter 1 Right -Multi-Layered Wrap Application Unna Boot - Bilateral ($) -Unna Boots (Bilat) ($) 2 Pain Scale: 0-10 Numeric Is Patient Pain Free? Yes WC - Visit Discharge Discharge Condition Stable Ambulatory Status Ambulatory Transportation Private Auto Accompanied by Assessment/Plan Assessment/Plan (1) Venous insufficiency (chronic) (peripheral): CODE(S): I87.2 - Venous insufficiency (chronic) (peripheral) (2) Non-pressure chronic ulcer of right calf with fat layer exposed: CODE(S): L97.212 - Non-pressure chronic ulcer of right calf with fat layer exposed PLAN: Plan Patient seen and evaluated Right anterior lower extremity ulceration measures 1.4 cm x 0.4 cm. Ulceration underwent debridement as noted in clinical panel above. Right anterior lateral lower extremity ulceration measures 0.5 cm x 0.5 cm x 0.3 cm. Ulceration underwent debridement as noted in clinical panel above. Ulcerative sites demonstrate no local signs of infection. It is noted the patient demonstrates +2 pitting edema to bilateral lower extremities. There is no hemosiderin deposition or erythema of the lower extremities. There is slight rubor noted to the circumferential lower extremity bilaterally. I discussed compression stockings again with the patient today and his to aid in edema control. Discussed elevation of lower extremities at all times of rest. I discussed with patient and his that controlling the edema is essential for his wound healing and prevention of recurrence of his wounds. Renetta applied to both lower extremity ulcerations of the right leg. Patient was placed in bilateral Unna boots and will return for dressing change on Thursday. I discussed local signs of infection to observe for. Discussed with patient and if he notices any increased redness about the ulcerative site moving up the leg, purulent drainage from the wound site, malodor from the wound, or if he experiences any nausea, vomiting, fever greater than 101 degrees, or chills that he needs to go to the ED as these are signs of a progressing infection. He and his voiced understanding of this discussion today. He will return to the wound care center in 1 week for continued local wound care. They are to call sooner for any questions or concerns. Note: [employer] speech recognition career services representative software was used to create portions of this document. Sound-alike and misspelled words, as well as other career services representative errors may be contained in the documentation. The problems addressed require a low medical decision making level which includes two or more minor problems, a stable chronic illness, or an acute uncomplicated illness or injury. The medical decision making level is low. There is noted low risk of morbidity after considering this treatment plan and diagnostic data.
[2022-08-04 14:38] VITALS: BP 177/89; PULSE 57; RESP 18; TEMP 36.4
--- NOTE | 2022-08-07 10:53 | PCM.WC.PN ---
History of Present Illness Date of Service: 08/07/22 Chief Complaint: Right lateral lower extremity wound History of Wound: Patient is a 81-year-old male who presents to the wound care center for a right lower extremity lateral wound. He states he was following with his PCP Dr. Yuri DO for this leg wound of 4 weeks duration. They were instructed to continue elevation of lower extremities to control his bilateral lower extremity edema. PCP increased furosemide from 20 mg to 40 mg for 7 days to aid in decreasing edema however this was not effective. Compression stockings were discussed by his PCP. states they have just been applying Neosporin and a Band-Aid but it has not been improving. Patient was referred to the wound care center by his PCP for nonhealing right lower lateral extremity ulceration. Subjective Subjective Patient is a 81-year-old male who presents to the wound care center today for follow-up of right lower extremity ulceration x2. His notes that the compression dressings have aided in decreasing his edema. He denies any constitutional symptoms today. He denies any further complaints today. Objective Data Objective Data Vital Signs: Vital Signs Temp Pulse Resp BP 97.5 F L 57 L 18 177/89 H 08/04/22 14:38 08/04/22 14:38 08/04/22 14:38 08/04/22 14:38 Physical Exam Const alert, oriented x3 and no apparent distress General Appearance: cooperative HEENT normocephalic Eyes General Eye: normal appearance of both eyes Neck General: normal visual inspection Lymph Lymphatic: no lymphadenopathy noted and no lymphedema noted Resp normal respiratory effort Cardio regular rate and regular rhythm Extremity normal capillary refill, no joint enlargement, no calf tenderness and no pedal edema General Extremity: edema bilateral Skin no rashes or lesions noted, skin turgor normal and no jaundice General Skin Exam: venous stasis Wound Narrative: Right lateral lower extremity ulceration noted. Ulceration demonstrates mixed fiber granular layer. No signs of infection. No palpable bogginess, no palpable fluctuance, no purulent drainage, no malodor, no erythema. Neuro oriented x3 and moves all extremities Debridement Note Debridement Note Wound debrided: Right lower extremity ulceration x2 Laterality: Right Wound Grade/Stage: Rendon stage I Type of Debridement: Excisional debridement Anesthesia Used: 5% Lidocaine Gel Depth: Down to and including healthy tissue and in the subcutaneous layer Percentage of wound debrided: 100 Instrument Used: 3mm curette Tissue Removed: Fibrous, devitalized subcutaneous, biofilm, slough Severity: Fat Layer Exposed Amount of bleeding with debridement: Mild Bleeding Controlled with: Compression and gauze Patient tolerated procedure: Patient tolerated procedure well Post-Debridement Measurements and Additional Note: Post-Debridement Measurements/Treatment - Nurse 1 - General Ulcer Assessment Start: 07/31/22 10:17 Freq: Status: Active Protocol: HUGO Activity Type Activity Date Activity User E-sign Co-sign Detail Recorded Client Recorded Date Recorded By Document 07/31/22 10:17 KR [id number] 07/31/22 10:30 KR Document 08/04/22 14:38 DL [id number] 08/04/22 14:50 DL 07/31/22 08/04/22 10:17 14:38 WC - Today's Visit Information Type of service Initial Visit Nurse-only Visit Arrival Mode Ambulatory Ambulatory Transfer Assistance None Patient Identification Verified (Name & Yes Yes ) Patient Requires Transmission-Based No Precautions Vital Signs Temperature (97.8 F-99.1 F) 96.5 F L 97.5 F L Temperature Source Temporal Temporal Pulse Rate (60-100) 86 57 L Pulse Location Monitor Monitor Respiratory Rate (12-18) 18 Respiratory rate source Observation Blood Pressure (90/60-120/80) 128/75 H 177/89 H Blood Pressure Mean (mm Hg) 92 118 Source Monitor Monitor Position Sitting Blood Pressure Location Right Arm History Since Last Visit- (Skip if this is Patient's initial visit) Have you changed medications since your No No last visit? Any new allergies or adverse reactions No No Had a fall/change in ADL's that may No No increase risk of falls Signs or symptoms of abuse and/or No No neglect since last visit Have you been in the hospital since your No No last visit? Has dressing in place as prescribed Yes Yes Has compression in place as prescribed N/A Yes Has offloadiing in place as prescribed N/A N/A Experienced any changes in pain level or No management Left Footwear Regular Shoe Right Footwear Regular Shoe Pain Scale: 0-10 Numeric Is Patient Pain Free? Yes Yes [facility] Nurse 1 - General Ulcer Measurement Start: 07/31/22 10:17 Freq: Status: Active Protocol: Activity Type Activity Date Activity User E-sign Co-sign Detail Recorded Client Recorded Date Recorded By Document 07/31/22 10:17 KR [id number] 07/31/22 10:30 KR Document 08/04/22 14:38 DL [id number] 08/04/22 14:50 DL 07/31/22 08/04/22 10:17 14:38 Wound Center Nurse 1 #2 Right LE Lateral -Exudate Amt Small -Exudate Type Serosanguineous -Texture (Briana-wound Skin Appearance) Scarring -Moisture (Briana-wound Skin Appearance) Dry/Scaly -Color (Briana-wound Skin Appearance) Hemosiderin Staining -Temperature (Briana-wound Skin No Abnormality Appearance) (Pt Warm) -Tenderness on Palpation (Briana-wound No Skin Appearance) -Ulcer Cleansing Soap and Water -Foul Odor after Cleansing No #1 Right Lower Extremity ANT -Current Size (cm) - Length 1 -Current Size (cm) - Width 2.3 -Current Size (cm) - Depth 0.1 -Total Square Cm 2.3 -Photo Taken No -Exudate Amt Small Small -Exudate Type Serosanguineous Serosanguineous -Wound Margin Distinct, Distinct, Outline Outline Attached Attached -Granulation Amt Small (1-33%) -Granulation Quality [place] -Necrosis Amt Medium (34-66%) -Necrotic Tissue Type Adherent Slough -Texture (Briana-wound Skin Appearance) Assessed, Scarring Scarring -Moisture (Briana-wound Skin Appearance) No Abnormality, Dry/Scaly Assessed -Color (Briana-wound Skin Appearance) No Abnormality, Hemosiderin Assessed Staining -Temperature (Briana-wound Skin No Abnormality No Abnormality Appearance) (Pt Warm) (Pt Warm) -Tenderness on Palpation (Briana-wound No No Skin Appearance) -Ulcer Cleansing Rinsed/ Soap and Water Irrigated with Saline -Foul Odor after Cleansing No No -Anesthetic Used 5% Lidocaine Gel Right Calf (cm) 36.5 Right Ankle (cm) 25.6 Left Calf (cm) 37.2 Left Ankle (cm) 28 WC - Nurse 2 - General Ulcer CM Notes Start: 07/31/22 10:17 Freq: Status: Active Protocol: Activity Type Activity Date Activity User E-sign Co-sign Detail Recorded Client Recorded Date Recorded By Document 07/31/22 12:38 PL [id number] 07/31/22 12:42 PL 07/31/22 12:38 Wound Center Nurse 2 #2 Right LE Lateral -Time 10:57 -Correct Patient Yes -Correct Side, Site, Position Yes -Correct Procedure Yes -Procedure Performed Yes -Type of Procedure Debridement -Clinical Debridement Subcutaneous -Tissue Removed Subcutaneous -Post Debridement (cm) - Length 0.5 -Post Debridement (cm) - Width 0.5 -Post Debridement (cm) - Depth 0.3 -Total Square (Post) (cm) 0.25 -Area of Debridement (cm) - Length 0.5 -Area of Debridement (cm) - Width 0.5 -Total Square (Area) (cm) 0.25 -Tunneling No -Undermining/Tunneling No -Circular Undermining No -Wound/Ulcer Outcome Not Healed -Ulcer Cleansing Rinsed/ Irrigated with Saline -Foul Odor after Cleansing No -Bioengineered Tissue No -Bleeding Controlled with NA -Treatment Response Procedure Tolerated Well -Debridement - Subq, 1st 20sq cm Yes #1 Right Lower Extremity ANT -Time 10:57 -Correct Patient Yes -Correct Side, Site, Position Yes -Correct Procedure Yes -Procedure Performed Yes -Type of Procedure Debridement -Clinical Debridement Subcutaneous -Tissue Removed Subcutaneous -Post Debridement (cm) - Length 1.0 -Post Debridement (cm) - Width 0.4 -Post Debridement (cm) - Depth 0.1 -Total Square (Post) (cm) 0.40 -Area of Debridement (cm) - Length 1.0 -Area of Debridement (cm) - Width 0.4 -Total Square (Area) (cm) 0.40 -Tunneling No -Undermining/Tunneling No -Circular Undermining No -Wound/Ulcer Outcome Not Healed -Ulcer Cleansing Rinsed/ Irrigated with Saline -Foul Odor after Cleansing No -Bioengineered Tissue No -Bleeding Controlled with Pressure -Treatment Response Procedure Tolerated Well -Debridement - Subq, 1st 20sq cm No Pain Scale: 0-10 Numeric Is Patient Pain Free? Yes WC - Nurse 3 - General Ulcer D/C NN Start: 07/31/22 10:17 Freq: Status: Active Protocol: Activity Type Activity Date Activity User E-sign Co-sign Detail Recorded Client Recorded Date Recorded By Document 07/31/22 11:07 [id number] 07/31/22 11:08 KR Document 08/04/22 14:38 DL [id number] 08/04/22 14:50 DL 07/31/22 08/04/22 11:07 14:38 Wound Care Nurse 3 #2 Right LE Lateral -Ulcer Cleansing Rinsed/ Irrigated with Saline -Foul Odor after Cleansing No -Negative Pressure Wound Therapy N/A -Primary Dressing Applied Promogran Renetta Matter -Promogran Renetta Matter 1 #1 Right Lower Extremity ANT -Ulcer Cleansing Rinsed/ Soap and Water Irrigated with Saline -Foul Odor after Cleansing No -Primary Dressing Applied Promogran Renetta Matter -Other Dressing Renetta -Primary Dressing Covered/Secured with Dry Gauze, Secured with Tape -Promogran Renetta Matter 1 Right -Multi-Layered Wrap Application Unna Boot - Unna Boot - Bilateral ($) Bilateral ($) -Unna Boots (Bilat) ($) 2 1 Treatment Response Procedure Tolerated Well Vital Signs Temperature (97.8 F-99.1 F) 97.5 F L Temperature Source Temporal Pulse Rate (60-100) 57 L Pulse Location Monitor Respiratory Rate (12-18) 18 Respiratory rate source Observation Blood Pressure (90/60-120/80) 177/89 H Blood Pressure Mean (mm Hg) 118 Source Monitor Pain Scale: 0-10 Numeric Is Patient Pain Free? Yes Yes WC - Visit Discharge Discharge Condition Stable Stable Ambulatory Status Ambulatory Ambulatory Transportation Private Auto Private Auto Accompanied by Assessment/Plan Assessment/Plan (1) Venous insufficiency (chronic) (peripheral): CODE(S): I87.2 - Venous insufficiency (chronic) (peripheral) (2) Non-pressure chronic ulcer of right calf with fat layer exposed: CODE(S): L97.212 - Non-pressure chronic ulcer of right calf with fat layer exposed PLAN: Plan Patient seen and evaluated Right anterior lower extremity ulceration measures 1.6 cm x 0.7 cm. Ulceration underwent debridement as noted in clinical panel above. Right anterior lateral lower extremity ulceration measures 0.6 cm x 0.4 cm x 0.2 cm. Ulceration underwent debridement as noted in clinical panel above. Ulcerative sites demonstrate no local signs of infection. Edema decreased to bilateral lower extremities with compression dressing versus previous visit. There is no hemosiderin deposition or erythema of the lower extremities. I discussed compression stockings again with the patient today and his to aid in edema control. Discussed elevation of lower extremities at all times of rest. I have discussed with patient and his that controlling the edema is essential for his wound healing and prevention of recurrence of his wounds. Renetta applied to both lower extremity ulcerations of the right leg. Patient was placed in bilateral Unna boots and will return for dressing change on Thursday. I discussed local signs of infection to observe for. Discussed with patient and if he notices any increased redness about the ulcerative site moving up the leg, purulent drainage from the wound site, malodor from the wound, or if he experiences any nausea, vomiting, fever greater than 101 degrees, or chills that he needs to go to the ED as these are signs of a progressing infection. He and his voiced understanding of this discussion today. He will return to the wound care center in 2 weeks for continued local wound care. They are to call sooner for any questions or concerns. Note: [employer] speech recognition bilingual speech language pathologist software was used to create portions of this document. Sound-alike and misspelled words, as well as other bilingual speech language pathologist errors may be contained in the documentation.
[2022-08-07 12:19] VITALS: BP 154/72; PULSE 69; TEMP 36.8
[2022-08-11 15:44] VITALS: BP 115/61; PULSE 50; RESP 18; TEMP 36.3
[2022-08-14 09:10] VITALS: BP 150/80; PULSE 62; RESP 20; TEMP 36.3
[2022-08-18 13:29] VITALS: BP 189/102; PULSE 51; TEMP 36.2
== END 2022-08-18 23:59 | disposition home or self-care (01) ==
LOC: WC 13:00
PROVIDERS: Visit Provider Student in an Organized Health Care Education/Training Program
DX: L97.212 Non-pressure chronic ulcer of right calf with fat layer exposed (principal); I87.2 Venous insufficiency (chronic) (peripheral); Z79.82 Long term (current) use of aspirin; R60.0 Localized edema; F17.210 Nicotine dependence, cigarettes, uncomplicated
CPT/HCPCS: 11042; 29580; 99213; G0463

== ENCOUNTER 2022-09-04 09:15 | Outpatient (RCR) | payer MEDICARE, OTHER, SELFPAY ==
[2022-08-19 00:08] VITALS: BP 189/102; PULSE 51; RESP 20; TEMP 36.2
[2022-08-21 08:51] VITALS: BP 128/75; PULSE 64; TEMP 36.5
--- NOTE | 2022-08-21 09:13 | PCM.WC.PN ---
History of Present Illness Date of Service: 08/21/22 Chief Complaint: Right lateral lower extremity wound History of Wound: Patient is a 81-year-old male who presents to the wound care center for a right lower extremity lateral wound. He states he was following with his PCP Dr. Yuri DO for this leg wound of 4 weeks duration. They were instructed to continue elevation of lower extremities to control his bilateral lower extremity edema. PCP increased furosemide from 20 mg to 40 mg for 7 days to aid in decreasing edema however this was not effective. Compression stockings were discussed by his PCP. states they have just been applying Neosporin and a Band-Aid but it has not been improving. Patient was referred to the wound care center by his PCP for nonhealing right lower lateral extremity ulceration. Subjective Subjective Patient is a 81-year-old male who presents to the wound care center today for follow-up of right lower extremity ulceration x2.? His notes that the compression dressings have aided in decreasing his edema.? states she believes the wounds are making good progress. He denies any constitutional symptoms today.?He denies any further complaints today. Objective Data Objective Data Vital Signs: Vital Signs Temp Pulse Resp BP 97.7 F L 64 20 H 128/75 H 08/21/22 08:51 08/21/22 08:51 08/19/22 00:08 08/21/22 08:51 Physical Exam Const alert, oriented x3 and no apparent distress General Appearance: cooperative HEENT normocephalic Eyes General Eye: normal appearance of both eyes Neck General: normal visual inspection Lymph Lymphatic: no lymphadenopathy noted and no lymphedema noted Resp normal respiratory effort Cardio regular rate and regular rhythm Extremity normal capillary refill, no joint enlargement, no calf tenderness and no pedal edema Skin no rashes or lesions noted, skin turgor normal and no jaundice Wound Narrative: Right lateral lower extremity ulceration x 2 noted.? Ulcerations demonstrate mixed fibro-granular layer.? No signs of infection.? No palpable bogginess, no palpable fluctuance, no purulent drainage, no malodor, no erythema. Neuro moves all extremities Debridement Note Debridement Note Wound debrided: Right anterior and right medial lower extremity ulceration Laterality: Right Wound Grade/Stage: Rendon stage I Type of Debridement: Excisional debridement Anesthesia Used: 5% Lidocaine Gel Depth: Down to and including healthy tissue and in the subcutaneous layer Percentage of wound debrided: 100 Instrument Used: 3mm curette Tissue Removed: Fibrous, devitalized subcutaneous, biofilm, slough Severity: Fat Layer Exposed Amount of bleeding with debridement: Mild Bleeding Controlled with: Compression and gauze Patient tolerated procedure: Patient tolerated procedure well Post-Debridement Measurements and Additional Note: Post-Debridement Measurements/Treatment ESHA - Nurse 1 - General Ulcer Assessment Start: 08/21/22 08:51 Freq: Status: Active Protocol: HUGO Activity Type Activity Date Activity User E-sign Co-sign Detail Recorded Client Recorded Date Recorded By Document 08/21/22 08:51 FABIAN [id number] 08/21/22 08:59 KR 08/21/22 08:51 WC - Today's Visit Information Type of service Follow-up Visit (Physician/STATION DETECTIVE ) Arrival Mode Ambulatory Patient Identification Verified (Name & Yes ) Vital Signs Temperature (97.8 F-99.1 F) 97.7 F L Temperature Source Temporal Pulse Rate (60-100) 64 Pulse Location Monitor Blood Pressure (90/60-120/80) 128/75 H Blood Pressure Mean (mm Hg) 92 Source Monitor Position Sitting Blood Pressure Location Left Arm History Since Last Visit- (Skip if this is Patient's initial visit) Have you changed medications since your No last visit? Any new allergies or adverse reactions No Had a fall/change in ADL's that may No increase risk of falls Signs or symptoms of abuse and/or No neglect since last visit Have you been in the hospital since your No last visit? Has dressing in place as prescribed Yes Has compression in place as prescribed Yes Has offloadiing in place as prescribed N/A Experienced any changes in pain level or No management Left Footwear Regular Shoe Right Footwear Regular Shoe Pain Scale: 0-10 Numeric Is Patient Pain Free? Yes - Nurse 1 - General Ulcer Measurement Start: 08/21/22 08:51 Freq: Status: Active Protocol: Activity Type Activity Date Activity User E-sign Co-sign Detail Recorded Client Recorded Date Recorded By Document 08/21/22 08:51 FABIAN [id number] 08/21/22 08:59 FABIAN 08/21/22 08:51 Wound Center Nurse 1 #2 Right LE Lateral -Current Size (cm) - Length 0.3 -Current Size (cm) - Width 0.3 -Current Size (cm) - Depth 0.1 -Total Square Cm 0.09 -Exudate Amt Small -Exudate Type Serosanguineous -Wound Margin Distinct, Outline Attached -Granulation Amt Small (1-33%) -Granulation Quality [place] -Necrosis Amt Small (1-33%) -Necrotic Tissue Type Adherent Slough -Texture (Briana-wound Skin Appearance) Assessed, Scarring -Moisture (Briana-wound Skin Appearance) No Abnormality, Assessed -Color (Briana-wound Skin Appearance) No Abnormality, Assessed -Temperature (Briana-wound Skin No Abnormality Appearance) (Pt Warm) -Tenderness on Palpation (Briana-wound No Skin Appearance) -Ulcer Cleansing Soap and Water -Foul Odor after Cleansing No -Anesthetic Used 5% Lidocaine Gel #1 Right Lower Extremity ANT -Current Size (cm) - Length 0.2 -Current Size (cm) - Width 0.2 -Current Size (cm) - Depth 0.1 -Total Square Cm 0.04 -Exudate Amt Small -Exudate Type Serosanguineous -Wound Margin Distinct, Outline Attached -Granulation Amt Small (1-33%) -Granulation Quality [place] -Necrosis Amt Small (1-33%) -Necrotic Tissue Type Adherent Slough -Texture (Briana-wound Skin Appearance) Assessed, Scarring -Moisture (Briana-wound Skin Appearance) No Abnormality, Assessed -Color (Briana-wound Skin Appearance) No Abnormality, Assessed -Temperature (Briana-wound Skin No Abnormality Appearance) (Pt Warm) -Tenderness on Palpation (Briana-wound No Skin Appearance) -Ulcer Cleansing Soap and Water -Foul Odor after Cleansing No -Anesthetic Used 5% Lidocaine Gel Right Calf (cm) 29.8 Right Ankle (cm) 25.2 Left Calf (cm) 30.6 Left Ankle (cm) 26.6 Assessment/Plan Assessment/Plan (1) Non-pressure chronic ulcer of right calf with fat layer exposed: CODE(S): L97.212 - Non-pressure chronic ulcer of right calf with fat layer exposed (2) Venous insufficiency (chronic) (peripheral): CODE(S): I87.2 - Venous insufficiency (chronic) (peripheral) PLAN: Plan Patient seen and evaluated Right anterior lower extremity ulceration measures 1.2 cm x 0.7 cm x 0.1cm.? Ulceration underwent debridement as noted in clinical panel above. Right anterior lateral lower extremity ulceration measures 0.5 cm x 0.3 cm x 0.1 cm.? Ulceration underwent debridement as noted in clinical panel above. Ulcerative sites continue to demonstrate good reduction in size versus previous visit. Ulcerative sites demonstrate no local signs of infection. Edema decreased to bilateral lower extremities with compression dressing versus previous visit. There is no hemosiderin deposition or erythema of the lower extremities. I discussed compression stockings again with the patient today and his to aid in edema control.? Discussed elevation of lower extremities at all times of rest.? I have discussed with patient and his that controlling the edema is essential for his wound healing and prevention of recurrence of his wounds. Collagen powder and PHMB dressing applied to both lower extremity ulcerations of the right leg.? Patient was placed in bilateral Unna boots and will return for dressing change on Thursday. I discussed local signs of infection to observe for.? Discussed with patient and if he notices any increased redness about the ulcerative site moving up the leg, purulent drainage from the wound site, malodor from the wound, or if he experiences any nausea, vomiting, fever greater than 101 degrees, or chills that he needs to go to the ED as these are signs of a progressing infection.? He and his voiced understanding of this discussion today. He will return to the wound care center in 1 week for continued local wound care.? They are to call sooner for any questions or concerns. Note: [employer] speech recognition manager actuarial software was used to create portions of this document. Sound-alike and misspelled words, as well as other manager actuarial errors may be contained in the documentation.
[2022-08-25 15:15] VITALS: BP 149/81; PULSE 49; TEMP 35.8
--- NOTE | 2022-08-28 10:09 | PCM.WC.PN ---
History of Present Illness Date of Service: 08/28/22 Chief Complaint: Right lateral lower extremity wound History of Wound: Patient is a 81-year-old male who presents to the wound care center for a right lower extremity lateral wound. He states he was following with his PCP Dr. Yuri DO for this leg wound of 4 weeks duration. They were instructed to continue elevation of lower extremities to control his bilateral lower extremity edema. PCP increased furosemide from 20 mg to 40 mg for 7 days to aid in decreasing edema however this was not effective. Compression stockings were discussed by his PCP. states they have just been applying Neosporin and a Band-Aid but it has not been improving. Patient was referred to the wound care center by his PCP for nonhealing right lower lateral extremity ulceration. Subjective Subjective Patient is a 81-year-old male who presents to the wound care center today for follow-up of right lower extremity ulceration x2.? His notes that the compression dressings have aided in decreasing his edema.? states she believes the wounds are making progressing well.? He denies any constitutional symptoms today.?He denies any further complaints today. Objective Data Objective Data Vital Signs: Vital Signs Temp Pulse Resp BP 96.4 F L 49 L 20 H 149/81 H 08/25/22 15:15 08/25/22 15:15 08/19/22 00:08 08/25/22 15:15 Physical Exam Const alert, oriented x3 and no apparent distress General Appearance: cooperative HEENT normocephalic Eyes General Eye: normal appearance of both eyes Neck General: normal visual inspection Lymph Lymphatic: no lymphadenopathy noted and no lymphedema noted Resp normal respiratory effort Cardio regular rate and regular rhythm Extremity normal capillary refill, no joint enlargement, no calf tenderness and no pedal edema Skin no rashes or lesions noted, skin turgor normal and no jaundice Wound Narrative: Right lateral lower extremity ulceration x 2 noted.? Ulcerations demonstrate mixed fibro-granular layer.? No signs of infection.? No palpable bogginess, no palpable fluctuance, no purulent drainage, no malodor, no erythema. Neuro moves all extremities Debridement Note Debridement Note Wound debrided: Right lower extremity x2 Laterality: Right Wound Grade/Stage: Rendon stage I Type of Debridement: Excisional debridement Anesthesia Used: 5% Lidocaine Gel Depth: Down to and including healthy tissue and in the subcutaneous layer Percentage of wound debrided: 100 Instrument Used: 3mm curette Tissue Removed: Fibrous, devitalized subcutaneous, biofilm, slough Severity: Fat Layer Exposed Amount of bleeding with debridement: Mild Bleeding Controlled with: Compression and gauze Patient tolerated procedure: Patient tolerated procedure well Post-Debridement Measurements and Additional Note: Post-Debridement Measurements/Treatment WC - Nurse 1 - General Ulcer Assessment Start: 08/21/22 08:51 Freq: Status: Active Protocol: HUGO Activity Type Activity Date Activity User E-sign Co-sign Detail Recorded Client Recorded Date Recorded By Document 08/21/22 08:51 KR [id number] 08/21/22 08:59 KR Document 08/25/22 15:15 AK [id number] 08/25/22 15:18 AK 08/21/22 08/25/22 08:51 15:15 WC - Today's Visit Information Type of service Follow-up Visit Nurse-only (Physician/BRASSWIND INSTRUMENT REPAIRER Visit ) Arrival Mode Ambulatory Ambulatory Patient Identification Verified (Name & Yes Yes ) Patient Requires Transmission-Based No Precautions Vital Signs Temperature (97.8 F-99.1 F) 97.7 F L 96.4 F L Temperature Source Temporal Temporal Pulse Rate (60-100) 64 49 L Pulse Location Monitor Monitor Blood Pressure (90/60-120/80) 128/75 H 149/81 H Blood Pressure Mean (mm Hg) 92 103 Source Monitor Monitor Position Sitting Blood Pressure Location Left Arm History Since Last Visit- (Skip if this is Patient's initial visit) Have you changed medications since your No No last visit? Any new allergies or adverse reactions No No Had a fall/change in ADL's that may No No increase risk of falls Signs or symptoms of abuse and/or No No neglect since last visit Have you been in the hospital since your No No last visit? Has dressing in place as prescribed Yes Yes Has compression in place as prescribed Yes Yes Has offloadiing in place as prescribed N/A N/A Experienced any changes in pain level or No No management Left Footwear Regular Shoe Regular Shoe Right Footwear Regular Shoe Regular Shoe Pain Scale: 0-10 Numeric Is Patient Pain Free? Yes Yes ESHA Triana Nurse 1 - General Ulcer Measurement Start: 08/21/22 08:51 Freq: Status: Active Protocol: Activity Type Activity Date Activity User E-sign Co-sign Detail Recorded Client Recorded Date Recorded By Document 08/21/22 08:51 KR [id number] 08/21/22 08:59 KR 08/21/22 08:51 Wound Center Nurse 1 #2 Right LE Lateral -Current Size (cm) - Length 0.3 -Current Size (cm) - Width 0.3 -Current Size (cm) - Depth 0.1 -Total Square Cm 0.09 -Exudate Amt Small -Exudate Type Serosanguineous -Wound Margin Distinct, Outline Attached -Granulation Amt Small (1-33%) -Granulation Quality [place] -Necrosis Amt Small (1-33%) -Necrotic Tissue Type Adherent Slough -Texture (Briana-wound Skin Appearance) Assessed, Scarring -Moisture (Briana-wound Skin Appearance) No Abnormality, Assessed -Color (Briana-wound Skin Appearance) No Abnormality, Assessed -Temperature (Briana-wound Skin No Abnormality Appearance) (Pt Warm) -Tenderness on Palpation (Briana-wound No Skin Appearance) -Ulcer Cleansing Soap and Water -Foul Odor after Cleansing No -Anesthetic Used 5% Lidocaine Gel #1 Right Lower Extremity ANT -Current Size (cm) - Length 0.2 -Current Size (cm) - Width 0.2 -Current Size (cm) - Depth 0.1 -Total Square Cm 0.04 -Exudate Amt Small -Exudate Type Serosanguineous -Wound Margin Distinct, Outline Attached -Granulation Amt Small (1-33%) -Granulation Quality [place] -Necrosis Amt Small (1-33%) -Necrotic Tissue Type Adherent Slough -Texture (Briana-wound Skin Appearance) Assessed, Scarring -Moisture (Briana-wound Skin Appearance) No Abnormality, Assessed -Color (Briana-wound Skin Appearance) No Abnormality, Assessed -Temperature (Briana-wound Skin No Abnormality Appearance) (Pt Warm) -Tenderness on Palpation (Briana-wound No Skin Appearance) -Ulcer Cleansing Soap and Water -Foul Odor after Cleansing No -Anesthetic Used 5% Lidocaine Gel Right Calf (cm) 29.8 Right Ankle (cm) 25.2 Left Calf (cm) 30.6 Left Ankle (cm) 26.6 WC - Nurse 2 - General Ulcer CM Notes Start: 08/21/22 08:51 Freq: Status: Active Protocol: Activity Type Activity Date Activity User E-sign Co-sign Detail Recorded Client Recorded Date Recorded By Document 08/21/22 11:58 PL [id number] 08/21/22 12:00 PL 08/21/22 11:58 Wound Center Nurse 2 #2 Right LE Lateral -Time 09:16 -Correct Patient Yes -Correct Side, Site, Position Yes -Correct Procedure Yes -Procedure Performed Yes -Type of Procedure Debridement -Clinical Debridement Subcutaneous -Tissue Removed Subcutaneous -Post Debridement (cm) - Length 0.5 -Post Debridement (cm) - Width 0.3 -Post Debridement (cm) - Depth 0.1 -Total Square (Post) (cm) 0.15 -Area of Debridement (cm) - Length 0.5 -Area of Debridement (cm) - Width 0.3 -Total Square (Area) (cm) 0.15 -Tunneling No -Undermining/Tunneling No -Circular Undermining No -Wound/Ulcer Outcome Not Healed -Ulcer Cleansing Rinsed/ Irrigated with Saline -Foul Odor after Cleansing No -Bioengineered Tissue No -Bleeding Controlled with Pressure -Treatment Response Procedure Tolerated Well -Debridement - Subq, 1st 20sq cm No #1 Right Lower Extremity ANT -Time 09:16 -Correct Patient Yes -Correct Side, Site, Position Yes -Correct Procedure Yes -Procedure Performed Yes -Type of Procedure Debridement -Clinical Debridement Subcutaneous -Tissue Removed Subcutaneous -Post Debridement (cm) - Length 1.2 -Post Debridement (cm) - Width 0.7 -Post Debridement (cm) - Depth 0.1 -Total Square (Post) (cm) 0.84 -Area of Debridement (cm) - Length 1.2 -Area of Debridement (cm) - Width 0.7 -Total Square (Area) (cm) 0.84 -Tunneling No -Undermining/Tunneling No -Circular Undermining No -Wound/Ulcer Outcome Not Healed -Ulcer Cleansing Rinsed/ Irrigated with Saline -Foul Odor after Cleansing No -Bioengineered Tissue No -Bleeding Controlled with Pressure -Treatment Response Procedure Tolerated Well -Debridement - Subq, 1st 20sq cm Yes Pain Scale: 0-10 Numeric Is Patient Pain Free? Yes WC - Nurse 3 - General Ulcer D/C NN Start: 08/21/22 08:51 Freq: Status: Active Protocol: Activity Type Activity Date Activity User E-sign Co-sign Detail Recorded Client Recorded Date Recorded By Document 08/21/22 09:25 ML [id number] 08/21/22 09:27 ML Document 08/25/22 15:15 AK [id number] 08/25/22 15:18 AK 08/21/22 08/25/22 09:25 15:15 Wound Care Nurse 3 #2 Right LE Lateral -Ulcer Cleansing Rinsed/ Soap and Water Irrigated with Saline -Foul Odor after Cleansing No -Negative Pressure Wound Therapy N/A -Other Dressing collegen powder collagen PMB ,amd,unna -Primary Dressing Covered/Secured with Dry Gauze #1 Right Lower Extremity ANT -Ulcer Cleansing Rinsed/ Soap and Water Irrigated with Saline -Other Dressing collegen powder collagen PMB ,amd,unna -Primary Dressing Covered/Secured with Dry Gauze pancho -Lotion applied to leg before No compression wrap -Multi-Layered Wrap Application Unna Boot - Bilateral ($) -Unna Boots (Bilat) ($) 2 Left -Multi-Layered Wrap Application Unna Boot - Bilateral ($) -Unna Boots (Bilat) ($) 2 Vital Signs Temperature (97.8 F-99.1 F) 96.4 F L Temperature Source Temporal Pulse Rate (60-100) 49 L Pulse Location Monitor Blood Pressure (90/60-120/80) 149/81 H Blood Pressure Mean (mm Hg) 103 Source Monitor Pain Scale: 0-10 Numeric Is Patient Pain Free? Yes Yes WC - Visit Discharge Discharge Condition Stable Ambulatory Status Ambulatory Transportation Private Auto Accompanied by Medication Reconcilliation completed & Yes provided to patient/care provider Clinical Summary of Care Provided Yes Assessment/Plan Assessment/Plan (1) Non-pressure chronic ulcer of right calf with fat layer exposed: CODE(S): L97.212 - Non-pressure chronic ulcer of right calf with fat layer exposed (2) Venous insufficiency (chronic) (peripheral): CODE(S): I87.2 - Venous insufficiency (chronic) (peripheral) PLAN: Plan Patient seen and evaluated Right anterior lower extremity ulceration measures 1.2 cm x 0.7 cm x 0.1cm.? Ulceration underwent debridement as noted in clinical panel above. Right anterior lateral lower extremity ulceration measures 0.5 cm x 0.3 cm x 0.1 cm.? Ulceration underwent debridement as noted in clinical panel above. Ulcerative sites continue to demonstrate good reduction in size versus previous visit. I will be looking to obtain approval for an advanced wound care product for application at next visit. Ulcerative sites demonstrate no local signs of infection. Edema decreased to bilateral lower extremities with compression dressing versus previous visit. There is no hemosiderin deposition or erythema of the lower extremities. I discussed compression stockings again with the patient today and his to aid in edema control.? Discussed elevation of lower extremities at all times of rest.? I have discussed with patient and his that controlling the edema is essential for his wound healing and prevention of recurrence of his wounds. Collagen powder and PHMB dressing applied to both lower extremity ulcerations of the right leg.? Patient was placed in bilateral Tubigrip stocking. I discussed local signs of infection to observe for.? Discussed with patient and if he notices any increased redness about the ulcerative site moving up the leg, purulent drainage from the wound site, malodor from the wound, or if he experiences any nausea, vomiting, fever greater than 101 degrees, or chills that he needs to go to the ED as these are signs of a progressing infection.? He and his voiced understanding of this discussion today. He will return to the wound care center in 1 week for continued local wound care.? They are to call sooner for any questions or concerns. Note: [employer] speech recognition addictions counselor assistant software was used to create portions of this document. Sound-alike and misspelled words, as well as other addictions counselor assistant errors may be contained in the documentation.
[2022-08-28 10:14] VITALS: BP 149/62; PULSE 69; TEMP 36.3
[2022-09-04 09:27] VITALS: BP 149/74; PULSE 72; TEMP 35.7
--- NOTE | 2022-09-04 09:44 | PCM.WC.PN ---
History of Present Illness Date of Service: 09/04/22 Chief Complaint: Right lateral lower extremity wound History of Wound: Patient is a 81-year-old male who presents to the wound care center for a right lower extremity lateral wound. He states he was following with his PCP Dr. Yuri DO for this leg wound of 4 weeks duration. They were instructed to continue elevation of lower extremities to control his bilateral lower extremity edema. PCP increased furosemide from 20 mg to 40 mg for 7 days to aid in decreasing edema however this was not effective. Compression stockings were discussed by his PCP. states they have just been applying Neosporin and a Band-Aid but it has not been improving. Patient was referred to the wound care center by his PCP for nonhealing right lower lateral extremity ulceration. Subjective Subjective Patient is a 81-year-old male who presents to the wound care center today for follow-up of right lower extremity ulceration x2.? His notes that the compression dressings have aided in decreasing his edema.? states she believes the wounds are progressing well and she notices a difference in size.? He denies any constitutional symptoms today.?He denies any further complaints today. Objective Data Objective Data Vital Signs: Vital Signs Temp Pulse Resp BP 96.2 F L 72 20 H 149/74 H 09/04/22 09:27 09/04/22 09:27 08/19/22 00:08 09/04/22 09:27 Physical Exam Const alert, oriented x3 and no apparent distress General Appearance: cooperative HEENT normocephalic Eyes General Eye: normal appearance of both eyes Neck General: normal visual inspection Lymph Lymphatic: no lymphadenopathy noted and no lymphedema noted Resp normal respiratory effort Cardio regular rate and regular rhythm Extremity normal capillary refill, no joint enlargement, no calf tenderness and no pedal edema Skin no rashes or lesions noted, skin turgor normal and no jaundice Wound Narrative: Right lateral lower extremity ulceration x 2 noted.? Ulcerations demonstrate mixed fibro-granular layer.? No signs of infection.? No palpable bogginess, no palpable fluctuance, no purulent drainage, no malodor, no erythema. Neuro moves all extremities Debridement Note Debridement Note Wound debrided: Right lower extremity x2 Laterality: Right Wound Grade/Stage: Rendon stage I Type of Debridement: Excisional debridement Anesthesia Used: 5% Lidocaine Gel Depth: Down to and including healthy tissue and in the subcutaneous layer Percentage of wound debrided: 100 Instrument Used: - (1 mm curette) Tissue Removed: Fibrous, devitalized subcutaneous, biofilm, slough Severity: Fat Layer Exposed Amount of bleeding with debridement: Mild Bleeding Controlled with: Compression and gauze Patient tolerated procedure: Patient tolerated procedure well Post-Debridement Measurements and Additional Note: Post-Debridement Measurements/Treatment WC - Nurse 1 - General Ulcer Assessment Start: 08/21/22 08:51 Freq: Status: Active Protocol: HUGO Activity Type Activity Date Activity User E-sign Co-sign Detail Recorded Client Recorded Date Recorded By Document 08/21/22 08:51 KR [id number] 08/21/22 08:59 KR Document 08/25/22 15:15 AK [id number] 08/25/22 15:18 AK Document 08/28/22 10:14 AK [id number] 08/28/22 10:16 AK Document 09/04/22 09:27 AK [id number] 09/04/22 09:31 AK 08/21/22 08/25/22 08/28/22 08:51 15:15 10:14 - Today's Visit Information Type of service Follow-up Visit Nurse-only Follow-up Visit (Physician/MANIFOLD BUILDER Visit (Physician/MANIFOLD BUILDER ) ) Arrival Mode Ambulatory Ambulatory Ambulatory Patient Identification Verified (Name & Yes Yes Yes ) Patient Requires Transmission-Based No No Precautions Safety Precautions NA Vital Signs Temperature (97.8 F-99.1 F) 97.7 F L 96.4 F L 97.3 F L Temperature Source Temporal Temporal Temporal Pulse Rate (60-100) 64 49 L 69 Pulse Location Monitor Monitor Monitor Blood Pressure (90/60-120/80) 128/75 H 149/81 H 149/62 H Blood Pressure Mean (mm Hg) 92 103 91 Source Monitor Monitor Monitor Position Sitting Blood Pressure Location Left Arm History Since Last Visit- (Skip if this is Patient's initial visit) Have you changed medications since your No No No last visit? Any new allergies or adverse reactions No No No Had a fall/change in ADL's that may No No No increase risk of falls Signs or symptoms of abuse and/or No No No neglect since last visit Have you been in the hospital since your No No No last visit? Has dressing in place as prescribed Yes Yes Yes Has compression in place as prescribed Yes Yes Yes Has offloadiing in place as prescribed N/A N/A N/A Experienced any changes in pain level or No No No management Left Footwear Regular Shoe Regular Shoe Regular Shoe Right Footwear Regular Shoe Regular Shoe Regular Shoe Pain Scale: 0-10 Numeric Is Patient Pain Free? Yes Yes Yes 09/04/22 09:27 - Today's Visit Information Type of service Follow-up Visit (Physician/MANIFOLD BUILDER ) Arrival Mode Ambulatory Patient Identification Verified (Name & Yes ) Patient Requires Transmission-Based No Precautions Safety Precautions NA Vital Signs Temperature (97.8 F-99.1 F) 96.2 F L Temperature Source Temporal Pulse Rate (60-100) 72 Pulse Location Monitor Blood Pressure (90/60-120/80) 149/74 H Blood Pressure Mean (mm Hg) 99 Source Monitor Position Blood Pressure Location History Since Last Visit- (Skip if this is Patient's initial visit) Have you changed medications since your No last visit? Any new allergies or adverse reactions No Had a fall/change in ADL's that may No increase risk of falls Signs or symptoms of abuse and/or No neglect since last visit Have you been in the hospital since your No last visit? Has dressing in place as prescribed Yes Has compression in place as prescribed N/A Has offloadiing in place as prescribed N/A Experienced any changes in pain level or No management Left Footwear Regular Shoe Right Footwear Regular Shoe Pain Scale: 0-10 Numeric Is Patient Pain Free? Yes - Nurse 1 - General Ulcer Measurement Start: 08/21/22 08:51 Freq: Status: Active Protocol: Activity Type Activity Date Activity User E-sign Co-sign Detail Recorded Client Recorded Date Recorded By Document 08/21/22 08:51 KR [id number] 08/21/22 08:59 KR Document 08/28/22 10:14 AK [id number] 08/28/22 10:16 AK Document 09/04/22 09:27 AK [id number] 09/04/22 09:31 AK 08/21/22 08/28/22 09/04/22 08:51 10:14 09:27 Wound Center Nurse 1 #2 Right LE Lateral -Combined with other wound No No -Current Size (cm) - Length 0.3 1 0.5 -Current Size (cm) - Width 0.3 0.5 0.4 -Current Size (cm) - Depth 0.1 0.1 0.1 -Total Square Cm 0.09 0.5 0.20 -Photo Taken Yes Yes -Tunneling No No -Undermining/Tunneling No No -Circular Undermining No No -Change in Wound Grade/Stage No No -Exudate Amt Small Small Small -Exudate Type Serosanguineous Serosanguineous Serosanguineous -Wound Margin Distinct, Distinct, Distinct, Outline Outline Outline Attached Attached Attached -Granulation Amt Small (1-33%) None Present (0 None Present (0 %) %) -Granulation Quality Paramount Paramount,Red Paramount -Slough/Fibrin Yes No -Necrosis Amt Small (1-33%) Small (1-33%) None Present (0 %) -Necrotic Tissue Type Adherent Slough Adherent Slough -Structure Exposed N/A N/A -Texture (Briana-wound Skin Appearance) Assessed, No Abnormality, Assessed,Not Scarring Assessed Assessed -Moisture (Briana-wound Skin Appearance) No Abnormality, No Abnormality, No Abnormality, Assessed Assessed Assessed -Color (Briana-wound Skin Appearance) No Abnormality, No Abnormality, No Abnormality, Assessed Assessed Assessed -Temperature (Briana-wound Skin No Abnormality No Abnormality No Abnormality Appearance) (Pt Warm) (Pt Warm) (Pt Warm) -Tenderness on Palpation (Briana-wound No No No Skin Appearance) -Ulcer Cleansing Soap and Water Rinsed/ Rinsed/ Irrigated with Irrigated with Saline Saline -Foul Odor after Cleansing No No No -Anesthetic Used 5% Lidocaine 5% Lidocaine 5% Lidocaine Gel Gel Gel #1 Right Lower Extremity ANT -Current Size (cm) - Length 0.2 -Current Size (cm) - Width 0.2 -Current Size (cm) - Depth 0.1 -Total Square Cm 0.04 -Exudate Amt Small -Exudate Type Serosanguineous -Wound Margin Distinct, Outline Attached -Granulation Amt Small (1-33%) -Granulation Quality Paramount -Necrosis Amt Small (1-33%) -Necrotic Tissue Type Adherent Slough -Texture (Briana-wound Skin Appearance) Assessed, Scarring -Moisture (Briana-wound Skin Appearance) No Abnormality, Assessed -Color (Briana-wound Skin Appearance) No Abnormality, Assessed -Temperature (Briana-wound Skin No Abnormality Appearance) (Pt Warm) -Tenderness on Palpation (Briana-wound No Skin Appearance) -Ulcer Cleansing Soap and Water -Foul Odor after Cleansing No -Anesthetic Used 5% Lidocaine Gel Lower Limb Edema Present No Right Calf (cm) 29.8 28 30 Right Ankle (cm) 25.2 22 22 Right Foot (cm) 27.5 Left Calf (cm) 30.6 23 Left Ankle (cm) 26.6 WC - Nurse 2 - General Ulcer CM Notes Start: 08/21/22 08:51 Freq: Status: Active Protocol: Activity Type Activity Date Activity User E-sign Co-sign Detail Recorded Client Recorded Date Recorded By Document 08/21/22 11:58 PL [id number] 08/21/22 12:00 PL Document 08/28/22 12:09 PL [id number] 08/28/22 12:10 PL 08/21/22 08/28/22 11:58 12:09 Wound Center Nurse 2 #2 Right LE Lateral -Time 09:16 01:01 -Correct Patient Yes Yes -Correct Side, Site, Position Yes Yes -Correct Procedure Yes Yes -Procedure Performed Yes Yes -Type of Procedure Debridement Debridement -Clinical Debridement Subcutaneous Subcutaneous -Tissue Removed Subcutaneous Subcutaneous -Post Debridement (cm) - Length 0.5 0.5 -Post Debridement (cm) - Width 0.3 0.3 -Post Debridement (cm) - Depth 0.1 0.1 -Total Square (Post) (cm) 0.15 0.15 -Area of Debridement (cm) - Length 0.5 0.5 -Area of Debridement (cm) - Width 0.3 0.3 -Total Square (Area) (cm) 0.15 0.15 -Tunneling No No -Undermining/Tunneling No No -Circular Undermining No No -Wound/Ulcer Outcome Not Healed Not Healed -Ulcer Cleansing Rinsed/ Rinsed/ Irrigated with Irrigated with Saline Saline -Foul Odor after Cleansing No No -Bioengineered Tissue No No -Bleeding Controlled with Pressure Pressure -Treatment Response Procedure Procedure Tolerated Well Tolerated Well -Debridement - Subq, 1st 20sq cm No No #1 Right Lower Extremity ANT -Time 09:16 10:10 -Correct Patient Yes Yes -Correct Side, Site, Position Yes Yes -Correct Procedure Yes Yes -Procedure Performed Yes Yes -Type of Procedure Debridement Debridement -Clinical Debridement Subcutaneous Subcutaneous -Tissue Removed Subcutaneous Subcutaneous -Post Debridement (cm) - Length 1.2 1.2 -Post Debridement (cm) - Width 0.7 0.7 -Post Debridement (cm) - Depth 0.1 0.1 -Total Square (Post) (cm) 0.84 0.84 -Area of Debridement (cm) - Length 1.2 1.2 -Area of Debridement (cm) - Width 0.7 0.7 -Total Square (Area) (cm) 0.84 0.84 -Tunneling No No -Undermining/Tunneling No No -Circular Undermining No No -Wound/Ulcer Outcome Not Healed Not Healed -Ulcer Cleansing Rinsed/ Rinsed/ Irrigated with Irrigated with Saline Saline -Foul Odor after Cleansing No No -Bioengineered Tissue No No -Bleeding Controlled with Pressure Pressure -Treatment Response Procedure Procedure Tolerated Well Tolerated Well -Debridement - Subq, 1st 20sq cm Yes Yes Pain Scale: 0-10 Numeric Is Patient Pain Free? Yes Yes WC - Nurse 3 - General Ulcer D/C NN Start: 08/21/22 08:51 Freq: Status: Active Protocol: Activity Type Activity Date Activity User E-sign Co-sign Detail Recorded Client Recorded Date Recorded By Document 08/21/22 09:25 ML [id number] 08/21/22 09:27 ML Document 08/25/22 15:15 AK [id number] 08/25/22 15:18 AK Document 08/28/22 11:45 AK [id number] 08/28/22 11:47 AK 08/21/22 08/25/22 08/28/22 09:25 15:15 11:45 Wound Care Nurse 3 #2 Right LE Lateral -Ulcer Cleansing Rinsed/ Soap and Water Rinsed/ Irrigated with Irrigated with Saline Saline -Foul Odor after Cleansing No No -Negative Pressure Wound Therapy N/A N/A -Other Dressing collegen powder collagen PMB ,amd,unna -Primary Dressing Covered/Secured with Dry Gauze Dry Gauze, Secured with Tape #1 Right Lower Extremity ANT -Ulcer Cleansing Rinsed/ Soap and Water Rinsed/ Irrigated with Irrigated with Saline Saline -Foul Odor after Cleansing No -Negative Pressure Wound Therapy N/A -Other Dressing collegen powder collagen PMB collagen amd ,amd,unna -Primary Dressing Covered/Secured with Dry Gauze Dry Gauze, Secured with Tape pancho -Lotion applied to leg before No compression wrap -Multi-Layered Wrap Application Unna Boot - Bilateral ($) -Unna Boots (Bilat) ($) 2 Left -Lotion applied to leg before No compression wrap -Multi-Layered Wrap Application Unna Boot - Multi-Layer Bilateral ($) Comp - Left ($) -Unna Boots (Bilat) ($) 2 Vital Signs Temperature (97.8 F-99.1 F) 96.4 F L Temperature Source Temporal Pulse Rate (60-100) 49 L Pulse Location Monitor Blood Pressure (90/60-120/80) 149/81 H Blood Pressure Mean (mm Hg) 103 Source Monitor Pain Scale: 0-10 Numeric Is Patient Pain Free? Yes Yes Yes WC - Visit Discharge Discharge Condition Stable Stable Ambulatory Status Ambulatory Ambulatory Transportation Private Auto Private Auto Accompanied by Medication Reconcilliation completed & Yes Yes provided to patient/care provider Clinical Summary of Care Provided Yes Yes Assessment/Plan Assessment/Plan (1) Non-pressure chronic ulcer of right calf with fat layer exposed: CODE(S): L97.212 - Non-pressure chronic ulcer of right calf with fat layer exposed (2) Venous insufficiency (chronic) (peripheral): CODE(S): I87.2 - Venous insufficiency (chronic) (peripheral) PLAN: Plan Patient seen and evaluated Right anterior lower extremity ulceration measures 1.0 cm x 0.6 cm x 0.1cm.? Ulceration underwent debridement as noted in clinical panel above. Right anterior lateral lower extremity ulceration measures 0.4 cm x 0.2cm x 0.1 cm.? Ulceration underwent debridement as noted in clinical panel above. Ulcerative sites continue to demonstrate good reduction in size versus previous visit. We will continue current course. Ulcerative sites demonstrate no local signs of infection. Edema decreased to bilateral lower extremities with compression dressing versus previous visit. There is no hemosiderin deposition or erythema of the lower extremities. I discussed compression stockings again with the patient today and his to aid in edema control.? Discussed elevation of lower extremities at all times of rest.? I have discussed with patient and his that controlling the edema is essential for his wound healing and prevention of recurrence of his wounds. Collagen powder and PHMB dressing applied to both lower extremity ulcerations of the right leg.? Patient was placed in bilateral Tubigrip stocking. At home for next week he will continue with Renetta and Hydrogel to the anterior site and collagen powder to lateral site. I discussed local signs of infection to observe for.? Discussed with patient and if he notices any increased redness about the ulcerative site moving up the leg, purulent drainage from the wound site, malodor from the wound, or if he experiences any nausea, vomiting, fever greater than 101 degrees, or chills that he needs to go to the ED as these are signs of a progressing infection.? He and his voiced understanding of this discussion today. He will return to the wound care center in 2 weeks for continued local wound care.? They are to call sooner for any questions or concerns. Note: [employer] speech recognition leasing consultant software was used to create portions of this document. Sound-alike and misspelled words, as well as other leasing consultant errors may be contained in the documentation.
== END 2022-09-17 23:59 | disposition home or self-care (01) ==
LOC: WC 09:15
PROVIDERS: Visit Provider Student in an Organized Health Care Education/Training Program
DX: L97.212 Non-pressure chronic ulcer of right calf with fat layer exposed (principal); R60.0 Localized edema; I87.2 Venous insufficiency (chronic) (peripheral)
CPT/HCPCS: 11042; 29580; 29581

== ENCOUNTER 2022-10-09 09:15 | Outpatient (RCR) | payer MEDICARE, OTHER, SELFPAY ==
[2022-09-18 00:11] VITALS: BP 149/74; PULSE 72; RESP 20; TEMP 35.7
--- NOTE | 2022-09-18 09:29 | PN.PCM_ITS ---
History of Present Illness Date of Service: 09/18/22 Chief Complaint: Right lateral lower extremity wound History of Wound: Patient is a 81-year-old male who presents to the wound care center for a right lower extremity lateral wound. He states he was following with his PCP Dr. Yuri DO for this leg wound of 4 weeks duration. They were instructed to continue elevation of lower extremities to control his bilateral lower extremity edema. PCP increased furosemide from 20 mg to 40 mg for 7 days to aid in decreasing edema however this was not effective. Compression stockings were discussed by his PCP. states they have just been applying Neosporin and a Band-Aid but it has not been improving. Patient was referred to the wound care center by his PCP for nonhealing right lower lateral extremity ulceration. Subjective Subjective Patient is a 81-year-old male who presents to the wound care center today for follow-up of right lower extremity ulceration x2.? His notes that the compression dressings have aided in decreasing his edema.? states she believes the wounds are progressing well and she notices continued reduction in size.? He denies any constitutional symptoms today.?He denies any further complaints today. Objective Data Objective Data Vital Signs: Vital Signs Temp Pulse Resp BP 96.2 F L 72 20 H 149/74 H 09/18/22 00:11 09/18/22 00:11 09/18/22 00:11 09/18/22 00:11 Physical Exam Const alert, oriented x3 and no apparent distress General Appearance: cooperative HEENT normocephalic Eyes General Eye: normal appearance of both eyes Neck General: normal visual inspection Lymph Lymphatic: no lymphadenopathy noted and no lymphedema noted Resp normal respiratory effort Cardio regular rate and regular rhythm Extremity normal capillary refill, no joint enlargement, no calf tenderness and no pedal edema Skin no rashes or lesions noted, skin turgor normal and no jaundice Wound Narrative: Right lateral lower extremity ulceration x 2 noted.? Ulcerations demonstrate mixed fibro-granular layer.? No signs of infection.? No palpable bogginess, no palpable fluctuance, no purulent drainage, no malodor, no erythema. Neuro moves all extremities Debridement Note Debridement Note Wound debrided: Right anterior lower extremity Laterality: Right Wound Grade/Stage: Rendon stage I Type of Debridement: Excisional debridement Anesthesia Used: 5% Lidocaine Gel Depth: Down to and including healthy tissue and in the subcutaneous layer Percentage of wound debrided: 100 Instrument Used: - (1 mm curette) Tissue Removed: Fibrous, devitalized subcutaneous, biofilm, slough Severity: Fat Layer Exposed Amount of bleeding with debridement: Mild Bleeding Controlled with: Compression and gauze Patient tolerated procedure: Patient tolerated procedure well Assessment/Plan Assessment/Plan (1) Non-pressure chronic ulcer of right calf with fat layer exposed: CODE(S): L97.212 - Non-pressure chronic ulcer of right calf with fat layer exposed (2) Venous insufficiency (chronic) (peripheral): CODE(S): I87.2 - Venous insufficiency (chronic) (peripheral) PLAN: Plan Patient seen and evaluated Right anterior lower extremity ulceration measures 0.6 cm x 0.6 cm x 0.1cm.? Ulceration underwent debridement as noted in clinical panel above. Right anterior lateral lower extremity ulceration has healed today. Ulcerative sites continue to demonstrate good reduction in size versus previous visit. We will continue current course. Ulcerative sites demonstrate no local signs of infection. Edema decreased to bilateral lower extremities with compression dressing versus previous visit. There is no hemosiderin deposition or erythema of the lower extremities. I discussed compression stockings again with the patient today and his to aid in edema control.? Discussed elevation of lower extremities at all times of rest.? I have discussed with patient and his that controlling the edema is essential for his wound healing and prevention of recurrence of his wounds. Collagen powder and PHMB dressing applied to both lower extremity ulcerations of the right leg.? Patient was placed in bilateral Tubigrip stocking. I discussed local signs of infection to observe for.? Discussed with patient and if he notices any increased redness about the ulcerative site moving up the leg, purulent drainage from the wound site, malodor from the wound, or if he experiences any nausea, vomiting, fever greater than 101 degrees, or chills that he needs to go to the ED as these are signs of a progressing infection.? He and his voiced understanding of this discussion today. He will return to the wound care center in 1 weeks for continued local wound care.? They are to call sooner for any questions or concerns. Note: [employer] speech recognition in process inspector software was used to create portions of this document. Sound-alike and misspelled words, as well as other in process inspector errors may be contained in the documentation.
[2022-09-18 09:30] VITALS: BP 147/67; PULSE 52; TEMP 35.8
[2022-09-25 09:41] VITALS: BP 179/100; PULSE 56; RESP 20; TEMP 36.1
--- NOTE | 2022-09-25 09:46 | PN.PCM_ITS ---
History of Present Illness Date of Service: 09/25/22 Chief Complaint: Right lateral lower extremity wound History of Wound: Patient is a 81-year-old male who presents to the wound care center for a right lower extremity lateral wound. He states he was following with his PCP Dr. Yuri DO for this leg wound of 4 weeks duration. They were instructed to continue elevation of lower extremities to control his bilateral lower extremity edema. PCP increased furosemide from 20 mg to 40 mg for 7 days to aid in decreasing edema however this was not effective. Compression stockings were discussed by his PCP. states they have just been applying Neosporin and a Band-Aid but it has not been improving. Patient was referred to the wound care center by his PCP for nonhealing right lower lateral extremity ulceration. Subjective Subjective Patient is a 81-year-old male who presents to the wound care center today for follow-up of right lower extremity ulceration.? His notes that the compression dressings have aided in decreasing his edema.? states she believes the wounds are progressing well and she notices continued reduction in size stating its close to being healed.? He denies any constitutional symptoms today.?He denies any further complaints today. Objective Data Objective Data Vital Signs: Vital Signs Temp Pulse Resp BP 97 F L 56 L 20 H 179/100 H 09/25/22 09:41 09/25/22 09:41 09/25/22 09:41 09/25/22 09:41 Physical Exam Const alert, oriented x3 and no apparent distress General Appearance: cooperative HEENT normocephalic Eyes General Eye: normal appearance of both eyes Neck General: normal visual inspection Lymph Lymphatic: no lymphadenopathy noted and no lymphedema noted Resp normal respiratory effort Cardio regular rate and regular rhythm Extremity normal capillary refill, no joint enlargement, no calf tenderness and no pedal edema Skin no rashes or lesions noted, skin turgor normal and no jaundice Wound Narrative: Right lateral lower extremity ulceration noted.? Ulcerations demonstrate mixed fibro-granular layer.? No signs of infection.? No palpable bogginess, no pal pable fluctuance, no purulent drainage, no malodor, no erythema. Neuro moves all extremities Debridement Note Debridement Note Wound debrided: Right lower extremity Laterality: Right Wound Grade/Stage: Rendon stage I Type of Debridement: Excisional debridement Anesthesia Used: 5% Lidocaine Gel Depth: Down to and including healthy tissue and in the subcutaneous layer Percentage of wound debrided: 100 Instrument Used: 3mm curette Tissue Removed: Fibrous, devitalized subcutaneous, biofilm, slough Severity: Fat Layer Exposed Amount of bleeding with debridement: Mild Bleeding Controlled with: Compression and gauze Patient tolerated procedure: Patient tolerated procedure well Post-Debridement Measurements and Additional Note: Post-Debridement Measurements/Treatment ESHA [facility] Nurse 1 - General Ulcer Assessment Start: 09/18/22 09:30 Freq: Status: Active Protocol: HUGO Activity Type Activity Date Activity User E-sign Co-sign Detail Recorded Client Recorded Date Recorded By Document 09/18/22 09:30 KR [id number] 09/18/22 09:33 KR Document 09/25/22 09:41 DL [id number] 09/25/22 09:46 DL 09/18/22 09/25/22 09:30 09:41 WC - Today's Visit Information Type of service Follow-up Visit Follow-up Visit (Physician/HISTORIC PRESERVATIONIST (Physician/HISTORIC PRESERVATIONIST ) ) Arrival Mode Ambulatory Ambulatory Transfer Assistance None Patient Identification Verified (Name & Yes Yes ) Patient Requires Transmission-Based No Precautions Vital Signs Temperature (97.8 F-99.1 F) 96.4 F L 97 F L Temperature Source Temporal Temporal Pulse Rate (60-100) 52 L 56 L Pulse Location Monitor Monitor Respiratory Rate (12-18) 20 H Respiratory rate source Observation Blood Pressure (90/60-120/80) 147/67 H 179/100 H Blood Pressure Mean (mm Hg) 93 126 Source Monitor Monitor Position Semi-Fowlers Blood Pressure Location Left Arm History Since Last Visit- (Skip if this is Patient's initial visit) Have you changed medications since your No No last visit? Any new allergies or adverse reactions No No Had a fall/change in ADL's that may No No increase risk of falls Signs or symptoms of abuse and/or No No neglect since last visit Have you been in the hospital since your No No last visit? Has dressing in place as prescribed Yes Yes Has compression in place as prescribed Yes Yes Has offloadiing in place as prescribed N/A N/A Experienced any changes in pain level or No No management Left Footwear Regular Shoe Right Footwear Regular Shoe Pain Scale: 0-10 Numeric Is Patient Pain Free? Yes Yes - Nurse 1 - General Ulcer Measurement Start: 09/18/22 09:30 Freq: Status: Active Protocol: Activity Type Activity Date Activity User E-sign Co-sign Detail Recorded Client Recorded Date Recorded By Document 09/18/22 09:30 KR [id number] 09/18/22 09:33 KR Document 09/25/22 09:41 DL [id number] 09/25/22 09:46 DL 09/18/22 09/25/22 09:30 09:41 Wound Center Nurse 1 #2 Right LE Lateral -Current Size (cm) - Length 0.3 -Current Size (cm) - Width 0.2 -Current Size (cm) - Depth 0.1 -Total Square Cm 0.06 -Exudate Amt Small -Exudate Type Serosanguineous -Wound Margin Distinct, Outline Attached -Granulation Amt Small (1-33%) -Granulation Quality [place] -Necrosis Amt None Present (0 %) -Texture (Briana-wound Skin Appearance) Assessed, Scarring -Moisture (Briana-wound Skin Appearance) Assessed,Dry/ Scaly -Color (Briana-wound Skin Appearance) No Abnormality, Assessed -Temperature (Briana-wound Skin No Abnormality Appearance) (Pt Warm) -Tenderness on Palpation (Briana-wound No Skin Appearance) -Ulcer Cleansing Rinsed/ Irrigated with Saline -Foul Odor after Cleansing No -Anesthetic Used 5% Lidocaine Gel #1 Right Lower Extremity ANT -Current Size (cm) - Length 0.3 -Current Size (cm) - Width 0.1 -Current Size (cm) - Depth 0.1 -Total Square Cm 0.03 -Photo Taken Yes -Exudate Amt None Present -Wound Margin Fibrotic Scar, Thickened Scar -Granulation Amt Small (1-33%) -Granulation Quality [place],Red -Necrosis Amt None Present (0 %) -Texture (Briana-wound Skin Appearance) Scarring -Moisture (Briana-wound Skin Appearance) Dry/Scaly -Color (Briana-wound Skin Appearance) Hemosiderin Staining -Temperature (Briana-wound Skin No Abnormality Appearance) (Pt Warm) -Tenderness on Palpation (Briana-wound No Skin Appearance) -Ulcer Cleansing Soap and Water -Foul Odor after Cleansing No -Anesthetic Used 5% Lidocaine Gel Left Calf (cm) 30.6 Left Ankle (cm) 22.2 WC - Nurse 2 - General Ulcer CM Notes Start: 09/18/22 09:30 Freq: Status: Active Protocol: Activity Type Activity Date Activity User E-sign Co-sign Detail Recorded Client Recorded Date Recorded By Document 09/18/22 12:33 PL [id number] 09/18/22 12:36 PL 09/18/22 12:33 Wound Center Nurse 2 #2 Right LE Lateral -Procedure Performed No -Wound/Ulcer Outcome Healed- Epithelialized #1 Right Lower Extremity ANT -Time 09:40 -Correct Patient Yes -Correct Side, Site, Position Yes -Correct Procedure Yes -Procedure Performed Yes -Type of Procedure Debridement -Clinical Debridement Subcutaneous -Tissue Removed Dermis, Subcutaneous -Post Debridement (cm) - Length 0.6 -Post Debridement (cm) - Width 0.6 -Post Debridement (cm) - Depth 0.1 -Total Square (Post) (cm) 0.36 -Area of Debridement (cm) - Length 0.6 -Area of Debridement (cm) - Width 0.6 -Total Square (Area) (cm) 0.36 -Tunneling No -Circular Undermining No -Wound/Ulcer Outcome Not Healed -Ulcer Cleansing Rinsed/ Irrigated with Saline -Foul Odor after Cleansing No -Bioengineered Tissue No -Bleeding Controlled with NA -Treatment Response Procedure Tolerated Well -Debridement - Subq, 1st 20sq cm Yes Pain Scale: 0-10 Numeric Is Patient Pain Free? Yes - Nurse 3 - General Ulcer D/C NN Start: 09/18/22 09:30 Freq: Status: Active Protocol: Activity Type Activity Date Activity User E-sign Co-sign Detail Recorded Client Recorded Date Recorded By Document 09/18/22 12:12 FABIAN [id number] 09/18/22 12:14 FABIAN 09/18/22 12:12 Wound Care Nurse 3 #2 Right LE Lateral -Ulcer Cleansing Rinsed/ Irrigated with Saline -Other Dressing collagen -Primary Dressing Covered/Secured with Dry Gauze, Secured with Tape Pain Scale: 0-10 Numeric Is Patient Pain Free? Yes - Visit Discharge Discharge Condition Stable Ambulatory Status Ambulatory Transportation Private Auto Assessment/Plan Assessment/Plan (1) Non-pressure chronic ulcer of right calf with fat layer exposed: CODE(S): L97.212 - Non-pressure chronic ulcer of right calf with fat layer exposed (2) Venous insufficiency (chronic) (peripheral): CODE(S): I87.2 - Venous insufficiency (chronic) (peripheral) PLAN: Plan Patient seen and evaluated Right anterior lower extremity ulceration measures 0.4 cm x 0.2 cm x 0.1cm.? Ulceration underwent debridement as noted in clinical panel above. Right anterior lateral lower extremity ulceration remains healed today. Ulcerative site continue to demonstrate good reduction in size versus previous visit. We will continue current course. Ulcerative sites demonstrate no local signs of infection. Edema decreased to bilateral lower extremities with compression dressing versus previous visit. There is no hemosiderin deposition or erythema of the lower extremities. I discussed compression stockings again with the patient today and his to aid in edema control.? Discussed elevation of lower extremities at all times of rest.? I have discussed with patient and his that controlling the edema is essential for his wound healing and prevention of recurrence of his wounds. Collagen powder and PHMB dressing applied to both lower extremity ulcerations of the right leg.? Patient was placed in bilateral Tubigrip stocking. I discussed local signs of infection to observe for.? Discussed with patient and if he notices any increased redness about the ulcerative site moving up the leg, purulent drainage from the wound site, malodor from the wound, or if he experiences any nausea, vomiting, fever greater than 101 degrees, or chills that he needs to go to the ED as these are signs of a progressing infection.? He and his voiced understanding of this discussion today. He will return to the wound care center in 1 weeks for continued local wound care.? They are to call sooner for any questions or concerns. Note: [employer] speech recognition fulfillment representative software was used to create portions of this document. Sound-alike and misspelled words, as well as other fulfillment representative errors may be contained in the documentation.
[2022-10-02 09:26] VITALS: BP 173/78; PULSE 58; TEMP 36.3
--- NOTE | 2022-10-02 09:33 | PCM.WC.PN ---
History of Present Illness Date of Service: 10/02/22 Chief Complaint: Right lateral lower extremity wound History of Wound: Patient is a 81-year-old male who presents to the wound care center for a right lower extremity lateral wound. He states he was following with his PCP Dr. Yuri DO for this leg wound of 4 weeks duration. They were instructed to continue elevation of lower extremities to control his bilateral lower extremity edema. PCP increased furosemide from 20 mg to 40 mg for 7 days to aid in decreasing edema however this was not effective. Compression stockings were discussed by his PCP. states they have just been applying Neosporin and a Band-Aid but it has not been improving. Patient was referred to the wound care center by his PCP for nonhealing right lower lateral extremity ulceration. Subjective Subjective Patient is a 81-year-old male who presents to the wound care center today for follow-up of right lower extremity ulceration.? His notes that the compression dressings have aided in keeping his edema under control.? states she believes the wounds are progressing well and she notices continued reduction in size stating its close to being healed.? He denies any constitutional symptoms today.?He denies any further complaints today. Objective Data Objective Data Vital Signs: Vital Signs Temp Pulse Resp BP 97.3 F L 58 L 20 H 173/78 H 10/02/22 09:26 10/02/22 09:26 09/25/22 09:41 10/02/22 09:26 Physical Exam Const alert, oriented x3 and no apparent distress General Appearance: cooperative HEENT normocephalic Eyes General Eye: normal appearance of both eyes Neck General: normal visual inspection Lymph Lymphatic: no lymphadenopathy noted and no lymphedema noted Resp normal respiratory effort Cardio regular rate and regular rhythm Extremity normal capillary refill, no joint enlargement, no calf tenderness and no pedal edema Skin no rashes or lesions noted, skin turgor normal and no jaundice Wound Narrative: Right lateral lower extremity ulceration noted.? Ulcerations demonstrate mixed fibro-granular layer.? No signs of infection.? No palpable bogginess, no palpable fluctuance, no purulent drainage, no malodor, no erythema. Neuro moves all extremities Debridement Note Debridement Note Wound debrided: Right anterior lower extremity Laterality: Right Wound Grade/Stage: Rendon Stage I Type of Debridement: Excisional debridement Anesthesia Used: 5% Lidocaine Gel Depth: Down to and including healthy tissue and in the subcutaneous layer Percentage of wound debrided: 100 Instrument Used: - (1mm curette) Tissue Removed: Fibrous, devitalized subcutaneous, biofilm, slough Severity: Fat Layer Exposed Amount of bleeding with debridement: Mild Bleeding Controlled with: Compression and gauze Patient tolerated procedure: Patient tolerated procedure well Post-Debridement Measurements and Additional Note: Post-Debridement Measurements/Treatment ESHA - Nurse 1 - General Ulcer Assessment Start: 09/18/22 09:30 Freq: Status: Active Protocol: HUGO Activity Type Activity Date Activity User E-sign Co-sign Detail Recorded Client Recorded Date Recorded By Document 09/18/22 09:30 KR [id number] 09/18/22 09:33 KR Document 09/25/22 09:41 DL [id number] 09/25/22 09:46 DL Document 10/02/22 09:26 AK [id number] 10/02/22 09:31 AK 09/18/22 09/25/22 10/02/22 09:30 09:41 09:26 - Today's Visit Information Type of service Follow-up Visit Follow-up Visit Follow-up Visit (Physician/BUFFING MACHINE OPERATOR SEMIAUTOMATIC (Physician/BUFFING MACHINE OPERATOR SEMIAUTOMATIC (Physician/BUFFING MACHINE OPERATOR SEMIAUTOMATIC ) ) ) Arrival Mode Ambulatory Ambulatory Ambulatory Transfer Assistance None Patient Identification Verified (Name & Yes Yes Yes ) Patient Requires Transmission-Based No No Precautions Vital Signs Temperature (97.8 F-99.1 F) 96.4 F L 97 F L 97.3 F L Temperature Source Temporal Temporal Temporal Pulse Rate (60-100) 52 L 56 L 58 L Pulse Location Monitor Monitor Monitor Respiratory Rate (12-18) 20 H Respiratory rate source Observation Blood Pressure (90/60-120/80) 147/67 H 179/100 H 173/78 H Blood Pressure Mean (mm Hg) 93 126 109 Source Monitor Monitor Monitor Position Semi-Fowlers Blood Pressure Location Left Arm History Since Last Visit- (Skip if this is Patient's initial visit) Have you changed medications since your No No No last visit? Any new allergies or adverse reactions No No No Had a fall/change in ADL's that may No No No increase risk of falls Signs or symptoms of abuse and/or No No No neglect since last visit Have you been in the hospital since your No No No last visit? Has dressing in place as prescribed Yes Yes Yes Has compression in place as prescribed Yes Yes Yes Has offloadiing in place as prescribed N/A N/A N/A Experienced any changes in pain level or No No No management Left Footwear Regular Shoe Regular Shoe Right Footwear Regular Shoe Regular Shoe Pain Scale: 0-10 Numeric Is Patient Pain Free? Yes Yes Yes WC - Nurse 1 - General Ulcer Measurement Start: 09/18/22 09:30 Freq: Status: Active Protocol: Activity Type Activity Date Activity User E-sign Co-sign Detail Recorded Client Recorded Date Recorded By Document 09/18/22 09:30 KR [id number] 09/18/22 09:33 KR Document 09/25/22 09:41 DL [id number] 09/25/22 09:46 DL Document 10/02/22 09:26 AK [id number] 10/02/22 09:31 AK 09/18/22 09/25/22 10/02/22 09:30 09:41 09:26 Wound Center Nurse 1 #2 Right LE Lateral -Current Size (cm) - Length 0.3 -Current Size (cm) - Width 0.2 -Current Size (cm) - Depth 0.1 -Total Square Cm 0.06 -Exudate Amt Small -Exudate Type Serosanguineous -Wound Margin Distinct, Outline Attached -Granulation Amt Small (1-33%) -Granulation Quality [place] -Necrosis Amt None Present (0 %) -Texture (Briana-wound Skin Appearance) Assessed, Scarring -Moisture (Briana-wound Skin Appearance) Assessed,Dry/ Scaly -Color (Briana-wound Skin Appearance) No Abnormality, Assessed -Temperature (Briana-wound Skin No Abnormality Appearance) (Pt Warm) -Tenderness on Palpation (Briana-wound No Skin Appearance) -Ulcer Cleansing Rinsed/ Irrigated with Saline -Foul Odor after Cleansing No -Anesthetic Used 5% Lidocaine Gel #1 Right Lower Extremity ANT -Combined with other wound No -Current Size (cm) - Length 0.3 0.5 -Current Size (cm) - Width 0.1 0.5 -Current Size (cm) - Depth 0.1 0.2 -Total Square Cm 0.03 0.25 -Date of Last Picture (Recall this 10/02/22 field) -Photo Taken Yes Yes -Tunneling No -Undermining/Tunneling No -Circular Undermining No -Change in Wound Grade/Stage No -Exudate Amt None Present Small -Exudate Type Serosanguineous -Wound Margin Fibrotic Scar, Distinct, Thickened Scar Outline Attached -Granulation Amt Small (1-33%) None Present (0 %) -Granulation Quality [place],Red N/A -Slough/Fibrin No -Necrosis Amt None Present (0 Medium (34-66%) %) -Necrotic Tissue Type Adherent Slough -Structure Exposed N/A -Texture (Briana-wound Skin Appearance) Scarring No Abnormality, Assessed -Moisture (Briana-wound Skin Appearance) Dry/Scaly No Abnormality, Assessed -Color (Briana-wound Skin Appearance) Hemosiderin No Abnormality, Staining Assessed -Temperature (Briana-wound Skin No Abnormality No Abnormality Appearance) (Pt Warm) (Pt Warm) -Tenderness on Palpation (Briana-wound No No Skin Appearance) -Ulcer Cleansing Soap and Water -Foul Odor after Cleansing No -Anesthetic Used 5% Lidocaine 5% Lidocaine Gel Gel Right Calf (cm) 31 Right Ankle (cm) 24 Left Calf (cm) 30.6 Left Ankle (cm) 22.2 WC - Nurse 2 - General Ulcer CM Notes Start: 09/18/22 09:30 Freq: Status: Active Protocol: Activity Type Activity Date Activity User E-sign Co-sign Detail Recorded Client Recorded Date Recorded By Document 09/18/22 12:33 PL [id number] 09/18/22 12:36 PL Document 09/25/22 13:30 PL [id number] 09/25/22 13:32 PL 09/18/22 09/25/22 12:33 13:30 Wound Center Nurse 2 #2 Right LE Lateral -Procedure Performed No -Wound/Ulcer Outcome Healed- Epithelialized #1 Right Lower Extremity ANT -Time 09:40 09:49 -Correct Patient Yes Yes -Correct Side, Site, Position Yes Yes -Correct Procedure Yes Yes -Procedure Performed Yes Yes -Type of Procedure Debridement Debridement -Clinical Debridement Subcutaneous Subcutaneous -Tissue Removed Dermis, Subcutaneous Subcutaneous -Post Debridement (cm) - Length 0.6 0.4 -Post Debridement (cm) - Width 0.6 0.2 -Post Debridement (cm) - Depth 0.1 0.1 -Total Square (Post) (cm) 0.36 0.08 -Area of Debridement (cm) - Length 0.6 0.4 -Area of Debridement (cm) - Width 0.6 0.2 -Total Square (Area) (cm) 0.36 0.08 -Tunneling No No -Undermining/Tunneling No -Circular Undermining No No -Wound/Ulcer Outcome Not Healed Not Healed -Ulcer Cleansing Rinsed/ Rinsed/ Irrigated with Irrigated with Saline Saline -Foul Odor after Cleansing No No -Bioengineered Tissue No No -Bleeding Controlled with NA Pressure -Treatment Response Procedure Procedure Tolerated Well Tolerated Well -Debridement - Subq, 1st 20sq cm Yes Yes Pain Scale: 0-10 Numeric Is Patient Pain Free? Yes Yes - Nurse 3 - General Ulcer D/C NN Start: 09/18/22 09:30 Freq: Status: Active Protocol: Activity Type Activity Date Activity User E-sign Co-sign Detail Recorded Client Recorded Date Recorded By Document 09/18/22 12:12 FABIAN [id number] 09/18/22 12:14 KR Document 09/25/22 09:58 MO [id number] 09/25/22 09:59 AK 09/18/22 09/25/22 12:12 09:58 Wound Care Nurse 3 #2 Right LE Lateral -Ulcer Cleansing Rinsed/ Irrigated with Saline -Other Dressing collagen -Primary Dressing Covered/Secured with Dry Gauze, Secured with Tape #1 Right Lower Extremity ANT -Ulcer Cleansing Rinsed/ Irrigated with Saline -Foul Odor after Cleansing No -Negative Pressure Wound Therapy N/A -Other Dressing collagen powder / collagen -Primary Dressing Covered/Secured with Dry Gauze & Roll Gauze, Secured with Tape Pain Scale: 0-10 Numeric Is Patient Pain Free? Yes Yes - Visit Discharge Discharge Condition Stable Stable Ambulatory Status Ambulatory Ambulatory Transportation Private Auto Private Auto Accompanied by Medication Reconcilliation completed & Yes provided to patient/care provider Clinical Summary of Care Provided Yes Assessment/Plan Assessment/Plan (1) Non-pressure chronic ulcer of right calf with fat layer exposed: CODE(S): L97.212 - Non-pressure chronic ulcer of right calf with fat layer exposed (2) Venous insufficiency (chronic) (peripheral): CODE(S): I87.2 - Venous insufficiency (chronic) (peripheral) PLAN: Plan Patient seen and evaluated Right anterior lower extremity ulceration measures 0.4 cm x 0.3 cm x 0.1cm.? Ulceration underwent debridement as noted in clinical panel above. Right anterior lateral lower extremity ulceration remains healed today. Ulcerative site continue to demonstrate good reduction in size versus previous visit. We will continue current course. Ulcerative sites demonstrate no local signs of infection. Edema remains decreased to bilateral lower extremities with compression dressing. There is no hemosiderin deposition or erythema of the lower extremities. I discussed compression stockings again with the patient today and his to aid in edema control.? Discussed elevation of lower extremities at all times of rest.? I have discussed with patient and his that controlling the edema is essential for his wound healing and prevention of recurrence of his wounds. Collagen powder and PHMB dressing applied to both lower extremity ulcerations of the right leg.? Patient was placed in bilateral Tubigrip stocking. I discussed local signs of infection to observe for.? Discussed with patient and if he notices any increased redness about the ulcerative site moving up the leg, purulent drainage from the wound site, malodor from the wound, or if he experiences any nausea, vomiting, fever greater than 101 degrees, or chills that he needs to go to the ED as these are signs of a progressing infection.? He and his voiced understanding of this discussion today. He will return to the wound care center in 1 weeks for continued local wound care.? They are to call sooner for any questions or concerns. Note: [employer] speech recognition community administrator software was used to create portions of this document. Sound-alike and misspelled words, as well as other community administrator errors may be contained in the documentation.
[2022-10-09 09:21] VITALS: BP 160/80; PULSE 59; RESP 18; TEMP 36.1
--- NOTE | 2022-10-09 09:23 | PN.PCM_ITS ---
History of Present Illness Date of Service: 10/09/22 Chief Complaint: Right lateral lower extremity wound History of Wound: Patient is a 81-year-old male who presents to the wound care center for a right lower extremity lateral wound. He states he was following with his PCP Dr. Yuri DO for this leg wound of 4 weeks duration. They were instructed to continue elevation of lower extremities to control his bilateral lower extremity edema. PCP increased furosemide from 20 mg to 40 mg for 7 days to aid in decreasing edema however this was not effective. Compression stockings were discussed by his PCP. states they have just been applying Neosporin and a Band-Aid but it has not been improving. Patient was referred to the wound care center by his PCP for nonhealing right lower lateral extremity ulceration. Subjective Subjective Patient is a 81-year-old male who presents to the wound care center today for follow-up of right lower extremity ulceration.? His notes that the compression dressings have aided in keeping his edema under control.? states she believes the wounds are almost healed.? He denies any constitutional symptoms today.?He denies any further complaints today. Objective Data Objective Data Vital Signs: Vital Signs Temp Pulse Resp BP 97.3 F L 58 L 20 H 173/78 H 10/02/22 09:26 10/02/22 09:26 09/25/22 09:41 10/02/22 09:26 Physical Exam Const alert, oriented x3 and no apparent distress General Appearance: cooperative HEENT normocephalic Eyes General Eye: normal appearance of both eyes Neck General: normal visual inspection Lymph Lymphatic: no lymphadenopathy noted and no lymphedema noted Resp normal respiratory effort Cardio regular rate and regular rhythm Extremity normal capillary refill, no joint enlargement, no calf tenderness and no pedal edema Skin no rashes or lesions noted, skin turgor normal and no jaundice Wound Narrative: Right lateral lower extremity ulceration noted.? Ulcerations demonstrate mixed fibro-granular layer.? No signs of infection.? No palpable bogginess, no palpable fluctuance, no purulent drainage, no malodor, no erythema. Neuro moves all extremities Debridement Note Debridement Note Wound debrided: Right lower extremity Laterality: Right Wound Grade/Stage: Rendon stage I Type of Debridement: Excisional debridement Anesthesia Used: 5% Lidocaine Gel Depth: Down to and including healthy tissue and in the subcutaneous layer Percentage of wound debrided: 100 Instrument Used: - (1 mm curette) Tissue Removed: Fibrous, devitalized subcutaneous, biofilm, slough Severity: Fat Layer Exposed Amount of bleeding with debridement: Mild Bleeding Controlled with: Compression and gauze Patient tolerated procedure: Patient tolerated procedure well Post-Debridement Measurements and Additional Note: Post-Debridement Measurements/Treatment WC - Nurse 1 - General Ulcer Assessment Start: 09/18/22 09:30 Freq: Status: Active Protocol: HUGO Activity Type Activity Date Activity User E-sign Co-sign Detail Recorded Client Recorded Date Recorded By Document 09/18/22 09:30 KR [id number] 09/18/22 09:33 KR Document 09/25/22 09:41 DL [id number] 09/25/22 09:46 DL Document 10/02/22 09:26 AK [id number] 10/02/22 09:31 AK 09/18/22 09/25/22 10/02/22 09:30 09:41 09:26 - Today's Visit Information Type of service Follow-up Visit Follow-up Visit Follow-up Visit (Physician/EXPELLER OPERATOR (Physician/EXPELLER OPERATOR (Physician/EXPELLER OPERATOR ) ) ) Arrival Mode Ambulatory Ambulatory Ambulatory Transfer Assistance None Patient Identification Verified (Name & Yes Yes Yes ) Patient Requires Transmission-Based No No Precautions Vital Signs Temperature (97.8 F-99.1 F) 96.4 F L 97 F L 97.3 F L Temperature Source Temporal Temporal Temporal Pulse Rate (60-100) 52 L 56 L 58 L Pulse Location Monitor Monitor Monitor Respiratory Rate (12-18) 20 H Respiratory rate source Observation Blood Pressure (90/60-120/80) 147/67 H 179/100 H 173/78 H Blood Pressure Mean (mm Hg) 93 126 109 Source Monitor Monitor Monitor Position Semi-Fowlers Blood Pressure Location Left Arm History Since Last Visit- (Skip if this is Patient's initial visit) Have you changed medications since your No No No last visit? Any new allergies or adverse reactions No No No Had a fall/change in ADL's that may No No No increase risk of falls Signs or symptoms of abuse and/or No No No neglect since last visit Have you been in the hospital since your No No No last visit? Has dressing in place as prescribed Yes Yes Yes Has compression in place as prescribed Yes Yes Yes Has offloadiing in place as prescribed N/A N/A N/A Experienced any changes in pain level or No No No management Left Footwear Regular Shoe Regular Shoe Right Footwear Regular Shoe Regular Shoe Pain Scale: 0-10 Numeric Is Patient Pain Free? Yes Yes Yes WC - Nurse 1 - General Ulcer Measurement Start: 09/18/22 09:30 Freq: Status: Active Protocol: Activity Type Activity Date Activity User E-sign Co-sign Detail Recorded Client Recorded Date Recorded By Document 09/18/22 09:30 KR [id number] 09/18/22 09:33 KR Document 09/25/22 09:41 DL [id number] 09/25/22 09:46 DL Document 10/02/22 09:26 AK [id number] 10/02/22 09:31 AK 09/18/22 09/25/22 10/02/22 09:30 09:41 09:26 Wound Center Nurse 1 #2 Right LE Lateral -Current Size (cm) - Length 0.3 -Current Size (cm) - Width 0.2 -Current Size (cm) - Depth 0.1 -Total Square Cm 0.06 -Exudate Amt Small -Exudate Type Serosanguineous -Wound Margin Distinct, Outline Attached -Granulation Amt Small (1-33%) -Granulation Quality [place] -Necrosis Amt None Present (0 %) -Texture (Briana-wound Skin Appearance) Assessed, Scarring -Moisture (Briana-wound Skin Appearance) Assessed,Dry/ Scaly -Color (Briana-wound Skin Appearance) No Abnormality, Assessed -Temperature (Briana-wound Skin No Abnormality Appearance) (Pt Warm) -Tenderness on Palpation (Briana-wound No Skin Appearance) -Ulcer Cleansing Rinsed/ Irrigated with Saline -Foul Odor after Cleansing No -Anesthetic Used 5% Lidocaine Gel #1 Right Lower Extremity ANT -Combined with other wound No -Current Size (cm) - Length 0.3 0.5 -Current Size (cm) - Width 0.1 0.5 -Current Size (cm) - Depth 0.1 0.2 -Total Square Cm 0.03 0.25 -Date of Last Picture (Recall this 10/02/22 field) -Photo Taken Yes Yes -Tunneling No -Undermining/Tunneling No -Circular Undermining No -Change in Wound Grade/Stage No -Exudate Amt None Present Small -Exudate Type Serosanguineous -Wound Margin Fibrotic Scar, Distinct, Thickened Scar Outline Attached -Granulation Amt Small (1-33%) None Present (0 %) -Granulation Quality [place],Red N/A -Slough/Fibrin No -Necrosis Amt None Present (0 Medium (34-66%) %) -Necrotic Tissue Type Adherent Slough -Structure Exposed N/A -Texture (Briana-wound Skin Appearance) Scarring No Abnormality, Assessed -Moisture (Briana-wound Skin Appearance) Dry/Scaly No Abnormality, Assessed -Color (Briana-wound Skin Appearance) Hemosiderin No Abnormality, Staining Assessed -Temperature (Briana-wound Skin No Abnormality No Abnormality Appearance) (Pt Warm) (Pt Warm) -Tenderness on Palpation (Briana-wound No No Skin Appearance) -Ulcer Cleansing Soap and Water -Foul Odor after Cleansing No -Anesthetic Used 5% Lidocaine 5% Lidocaine Gel Gel Right Calf (cm) 31 Right Ankle (cm) 24 Left Calf (cm) 30.6 Left Ankle (cm) 22.2 WC - Nurse 2 - General Ulcer CM Notes Start: 09/18/22 09:30 Freq: Status: Active Protocol: Activity Type Activity Date Activity User E-sign Co-sign Detail Recorded Client Recorded Date Recorded By Document 09/18/22 12:33 PL [id number] 09/18/22 12:36 PL Document 09/25/22 13:30 PL [id number] 09/25/22 13:32 PL Document 10/02/22 11:52 PL [id number] 10/02/22 11:52 PL 09/18/22 09/25/22 10/02/22 12:33 13:30 11:52 Wound Center Nurse 2 #2 Right LE Lateral -Procedure Performed No -Wound/Ulcer Outcome Healed- Epithelialized #1 Right Lower Extremity ANT -Time 09:40 09:49 09:36 -Correct Patient Yes Yes Yes -Correct Side, Site, Position Yes Yes Yes -Correct Procedure Yes Yes Yes -Procedure Performed Yes Yes Yes -Type of Procedure Debridement Debridement Debridement -Clinical Debridement Subcutaneous Subcutaneous Subcutaneous -Tissue Removed Dermis, Subcutaneous Subcutaneous Subcutaneous -Post Debridement (cm) - Length 0.6 0.4 0.4 -Post Debridement (cm) - Width 0.6 0.2 0.3 -Post Debridement (cm) - Depth 0.1 0.1 0.1 -Total Square (Post) (cm) 0.36 0.08 0.12 -Area of Debridement (cm) - Length 0.6 0.4 0.4 -Area of Debridement (cm) - Width 0.6 0.2 0.3 -Total Square (Area) (cm) 0.36 0.08 0.12 -Tunneling No No No -Undermining/Tunneling No No -Circular Undermining No No No -Wound/Ulcer Outcome Not Healed Not Healed Not Healed -Ulcer Cleansing Rinsed/ Rinsed/ Rinsed/ Irrigated with Irrigated with Irrigated with Saline Saline Saline -Foul Odor after Cleansing No No No -Bioengineered Tissue No No No -Bleeding Controlled with NA Pressure -Treatment Response Procedure Procedure Tolerated Well Tolerated Well -Debridement - Subq, 1st 20sq cm Yes Yes Yes Pain Scale: 0-10 Numeric Is Patient Pain Free? Yes Yes Yes WC - Nurse 3 - General Ulcer D/C NN Start: 09/18/22 09:30 Freq: Status: Active Protocol: Activity Type Activity Date Activity User E-sign Co-sign Detail Recorded Client Recorded Date Recorded By Document 09/18/22 12:12 KR [id number] 09/18/22 12:14 KR Document 09/25/22 09:58 VA [id number] 09/25/22 09:59 AK 09/18/22 09/25/22 12:12 09:58 Wound Care Nurse 3 #2 Right LE Lateral -Ulcer Cleansing Rinsed/ Irrigated with Saline -Other Dressing collagen -Primary Dressing Covered/Secured with Dry Gauze, Secured with Tape #1 Right Lower Extremity ANT -Ulcer Cleansing Rinsed/ Irrigated with Saline -Foul Odor after Cleansing No -Negative Pressure Wound Therapy N/A -Other Dressing collagen powder / collagen -Primary Dressing Covered/Secured with Dry Gauze & Roll Gauze, Secured with Tape Pain Scale: 0-10 Numeric Is Patient Pain Free? Yes Yes WC - Visit Discharge Discharge Condition Stable Stable Ambulatory Status Ambulatory Ambulatory Transportation Private Auto Private Auto Accompanied by Medication Reconcilliation completed & Yes provided to patient/care provider Clinical Summary of Care Provided Yes Assessment/Plan Assessment/Plan (1) Non-pressure chronic ulcer of right calf with fat layer exposed: CODE(S): L97.212 - Non-pressure chronic ulcer of right calf with fat layer exposed (2) Venous insufficiency (chronic) (peripheral): CODE(S): I87.2 - Venous insufficiency (chronic) (peripheral) PLAN: Plan Patient seen and evaluated Right anterior lower extremity ulceration measures 0.3 cm x 0.2 cm x 0.1cm.? Ulceration underwent debridement as noted in clinical panel above. Right anterior lateral lower extremity ulceration remains healed today. Ulcerative site continue to demonstrate good reduction in size versus previous visit. We will continue current course. His prognosis remains good Ulcerative sites demonstrate no local signs of infection. Edema remains decreased to bilateral lower extremities with compression dressing. There is no hemosiderin deposition or erythema of the lower extremities. I discussed compression stockings again with the patient today and his to aid in edema control.? Discussed elevation of lower extremities at all times of rest.? I have discussed with patient and his that controlling the edema is essential for his wound healing and prevention of recurrence of his wounds. Collagen powder and PHMB dressing applied to both lower extremity ulcerations of the right leg.? Patient was placed in bilateral Tubigrip stocking. I discussed local signs of infection to observe for.? Discussed with patient and if he notices any increased redness about the ulcerative site moving up the leg, purulent drainage from the wound site, malodor from the wound, or if he experiences any nausea, vomiting, fever greater than 101 degrees, or chills that he needs to go to the ED as these are signs of a progressing infection.? He and his voiced understanding of this discussion today. He will return to the wound care center in 1 weeks for continued local wound care.? They are to call sooner for any questions or concerns. Note: e[employer] speech recognition industrial conveyor belt repairer software was used to create portions of this document. Sound-alike and misspelled words, as well as other industrial conveyor belt repairer errors may be contained in the documentation.
== END 2022-10-16 14:27 | disposition home or self-care (01) ==
LOC: WC 09:15
PROVIDERS: Visit Provider Student in an Organized Health Care Education/Training Program
DX: I87.2 Venous insufficiency (chronic) (peripheral) (principal); L97.212 Non-pressure chronic ulcer of right calf with fat layer exposed
CPT/HCPCS: 11042

== ENCOUNTER 2022-10-09 16:28 | Observation (INO) | payer MEDICARE, OTHER, SELFPAY ==
[2022-10-09] VITALS (7 sets, daily range): BP systolic 137–192; BP diastolic 80–109; PULSE 51–80; RESP 15–20; TEMP 36.2–36.6; O2SAT 87–95; BMI 20.5
--- NOTE | 2022-10-09 17:25 | ED.VIS.FALL ---
HPI HPI - Fall History of Present Illness Chief Complaint: Fall Narrative Narrative: Patient presents after a fall. He was walking to the shop. He tripped on the ground. He landed on partially a dog bed but also there was a bucket right there and the edge of the bucket hit his right anterior lateral ribs. He states it hurts there but nowhere else. He did abrade the skin on the back of his right arm but it does not hurt. He is not on any anticoagulation. He did not hit his head. He is acting normally per family. [facility] Medical History Alzheimer disease Home Medications aspirin 81 mg chewable tablet 81 mg PO DAILY 10/21/21 [History Last Taken Unknown] atenolol 100 mg tablet 100 mg PO BID 10/21/21 [History Last Taken Unknown] azelastine 137 mcg (0.1 %) nasal spray aerosol 2 spray intranasal BID 10/21/21 [History Last Taken Unknown] budesonide 0.5 mg/2 mL suspension for nebulization 0.5 mg inhalation BID 10/21/21 [History Last Taken Unknown] furosemide 40 mg tablet (Lasix) 20 mg PO DAILY 10/21/21 [History Last Taken Unknown] hydralazine 25 mg tablet 25 mg PO BID 10/21/21 [History Last Taken Unknown] ipratropium 0.5 mg-albuterol 3 mg (2.5 mg base)/3 mL nebulization soln 3 ml inhalation QHS 10/21/21 [History Last Taken Unknown] magnesium 500 mg tablet 500 mg PO BID 10/21/21 [History Last Taken Unknown] mecobalamin (vitamin B12) 1,000 mcg chewable tablet (B12 Active) 100 mcg PO BID 10/21/21 [History Last Taken Unknown] memantine 10 mg tablet 10 mg PO BID 10/21/21 [History Last Taken Unknown] itvaubbx-twb-ojqcx acid 300 mcg-lycopene 600 mcg-lutein 300 mcg tablet (Centrum Silver Men) 1 tab PO DAILY 10/21/21 [History Last Taken Unknown] rivastigmine 13.3 mg/24 hour transdermal patch (Exelon Patch) 13.3 mg transdermal DAILY 10/21/21 [History Last Taken Unknown] simvastatin 40 mg tablet 40 mg PO QHS 10/21/21 [History Last Taken Unknown] ascorbic acid (vitamin C) 1,000 mg tablet (Vitamin C) 250 mg PO DAILY 10/09/22 [History Last Taken Unknown] cholecalciferol (vitamin D3) 25 mcg (1,000 unit) chewable tablet 1,000 unit PO DAILY 10/09/22 [History Last Taken Unknown] Allergy/AdvReac Type Severity Reaction Status Date / Time No Known Allergies Allergy Verified 10/09/22 16:37 Family History (Updated 10/09/22 @ 22:[address] Leonides Painter MD) Other Alzheimer's dementia Social History Smoking Status: Current some day smoker tobacco type: cigarettes ROS ROS ED Constitutional Constitutional ED: Denies chills or fever(s) Eyes Eyes: Denies change in vision ENT ENT ED: Denies sore throat Cardiovascular Cardiovascular: Reports chest pain; Denies palpitations or racing heartbeat Respiratory/Chest Respiratory/Chest: Denies cough or dyspnea Gastrointestinal Gastrointestinal: Denies abdominal pain, nausea or vomiting Genitourinary Genitourinary ED: Denies hematuria Musculoskeletal Musculoskeletal: Denies back pain or neck pain Integumentary Reports Abrasions Neurologic Neurologic: Denies headache(s), paresthesias or weakness Hematologic/Lymphatic Hematologic/Lymphatic: Denies easy bleeding or easy bruising Allergic/Immunologic Allergic/Immunologic ED: Denies urticaria EXAM Physical Exam Const Vital Signs: 10/09/22 16:31 10/09/22 16:38 10/09/22 18:29 Temperature 97.1 F L Temperature Source Temporal Pulse Rate 51 L 80 Respiratory Rate 18 20 H Respiratory Effort Normal Non-Labored Respiratory Depth Normal Respiratory Pattern Normal Blood Pressure 192/109 H 170/87 H Blood Pressure Mean 136 114 Pulse Ox 93 92 95 Oxygen Delivery Method Room Air Room Air Room Air 10/09/22 19:38 10/09/22 20:55 10/09/22 21:51 Temperature Temperature Source Pulse Rate 53 L 51 L 56 L Respiratory Rate 15 15 16 Respiratory Effort Respiratory Depth Respiratory Pattern Blood Pressure 160/86 H 192/98 H Blood Pressure Mean 110 129 Pulse Ox 90 87 Oxygen Delivery Method Room Air Room Air Positive well nourished and well developed Constitutional Narrative: Patient is very thin and frail but he is in no acute distress. He is resting initially and then wakes up and tells me the story after I walk in. General Appearance ED: well developed HEENT Reports normocephalic atraumatic; Negative for trauma, contusion, hematoma or tenderness Eyes General Eye ED: Negative for scleral icterus Neck no lymphadenopathy Neck Narrative: No tenderness or pain with range of motion. Chest Wall inspection of chest normal Chest Narrative: I see no bruising or abrasions at this time. There is no subcu air. No crepitance. But he does have tenderness to the lower ribs mostly in the anterior axillary line. Resp normal respiratory effort Resp Narrative: No decrease or asymmetry of breath sounds on exam. Cardio regular rhythm Cardio Narrative: Heart rate is a little slow. When I am in the room he is about 55-65. It appears to be sinus. Of note, he is on atenolol. GI non-tender and non-distended GI Narrative: He has tenderness at the lower right ribs but none in the abdomen below this. Back/Spine no CVA tenderness Neuro oriented x3 Psych mental status grossly normal and thought process normal Skin Skin Narrative: Abrasion of the skin on the dorsal aspect of his right upper arm but no tenderness or deformity. MDM MDM MDM Narrative Medical decision making narrative: X-rays show no acute fracture. Blood work was added as the patient has been having general generalized weakness. He is too weak to get up and walk around. We did blood work that showed normal white count. Minimal anemia but this is not the source of his symptoms. Electrolytes show no significant abnormalities but he did have a high BUN to creatinine ratio. This showed dehydration and he was given a bit of IV fluids. Phosphorus was normal. Mag was minimally high. This was checked because it does look like he is on magnesium supplementation. We tried to give him pain meds. When we get him up to walk he just feels too weak. This seems like a combination of generalized weakness as well as the ribs hurting. He also has some slightly low O2 sats on room air but some of this was also after the morphine. So He lives at home with his . His did now come in. She is not able to safely care for him. Since he has fallen, is weak, cannot walk certainly safely, cannot bear his own weight he will need to come in the hospital. I discussed that he may need placement in long term for care for several weeks until he improved. Of note, when he tried to get up he had no pain in his extremities. He just felt too weak to walk Lab Data Attestation: I reviewed the patient's lab results. Labs: Laboratory Results - last 24 hr 10/09/22 10/09/22 10/09/22 15:31 15:31 15:31 WBC 8.0 RBC 3.97 L Hgb 12.3 L Hct 37.8 L MCV 95.2 H MCH 31.0 MCHC 32.5 RDW Std Deviation 54.8 H RDW Coeff of Bola 15.7 H Plt Count 225 MPV 9.9 Immature Gran % (Auto) 0.500 Neut % (Auto) 73.9 H Lymph % (Auto) 13.3 L Walton % (Auto) 9.1 Eos % (Auto) 2.4 Baso % (Auto) 0.8 Absolute Neuts (auto) 5.9 Absolute Lymphs (auto) 1.06 Nucleated RBC % 0 Sodium 141 Potassium 4.4 Chloride 107 Carbon Dioxide 32.0 Anion Gap 2 L BUN 31 H Creatinine 1.20 Estim Creat Clear Calc 41.87 Est GFR (MDRD) Af Amer 75 Est GFR (MDRD) Non-Af 62 BUN/Creatinine Ratio 25.8 H Glucose 100 Calcium 10.8 H Phosphorus 3.5 Magnesium 2.8 H Radiography Diagnostic Testing: Clinical Impression(s) from Imaging Studies Ribs w/Chest X-Ray 10/09/22 18:00 IMPRESSION: 1. There are compression deformities of the spine. These are age-indeterminate. MRI could further evaluate if of concern. 2. Acute fracture of the right lateral 8th and 9th ribs. Electronically Signed: Ran Busch MD at 18:32 EST , Chest x-ray does show acute fractures of the eighth and ninth rib. Show deformities of the spine that may be old fractures but he is not having acute symptoms there. Discharge Plan Triage Chief Complaint: Fall ED Provider: Juancho Miramontes Dx/Rx/DC Orders Clinical Impression: Fall at home, Right rib fracture, Dehydration, Inability to ambulate due to multiple joints Primary Care Provider: Eduardo Welch Disposition Disposition: Acute Care Hospital [facility]
[2022-10-09 17:49] LABS: Absolute Lymphocyte Count 1.06 X10^3/uL (0.83-4.51); Absolute Neutrophil Count 5.9 X10^3/uL (2.0-7.7); Basophil# 0.06 X10^3/uL; Basophil% 0.8 % (0-1); Eosinophil# 0.19 X10^3/uL; Eosinophils% 2.4 % (0-5); Hematocrit 37.8 % (40-54); Hemoglobin 12.3 g/dL (13.0-16.5); Lymphocyte # 1.06 X10^3/ul (0.83-4.51); Lymphocyte % 13.3 % (19-41); Mean Corp Hgb Conc 32.5 g/dL (32-36); Mean Corpuscular Volume 95.2 fL (80-94); Mean Platelet Vol. 9.9 fl (6.2-12.0); Monocyte# 0.73 X10^3/uL; Monocyte% 9.1 % (0-10); NRBC Flagged by Analyzer 0 % (0-5); Neutrophil # 5.91 X10^3/uL (2.7-7.7); Neutrophil % 73.9 % (47-70); Platelet Count 225 K/mm3 (150-450); RBC Distribution Width CV 15.7 % (11.6-14.6); RBC Distribution Width SD 54.8 fl (35.1-43.9); Red Blood Count 3.97 M/mm3 (4.6-6.2)
--- NOTE | 2022-10-09 18:00 | RAD_ITS ---
EXAM: XR RIGHT RIBS AND AP CHEST, 3 OR MORE VIEWS CLINICAL INDICATION: Trauma S/P FALL WITH C/O RIGHT RIB PAIN AFTER FALLING ON BUCKET. TECHNIQUE: Frontal and oblique views of the right ribs and frontal view of the chest. This report was created using [employer] technology. COMPARISON: None. FINDINGS: LUNGS AND PLEURAL SPACES: Unremarkable. No consolidation or edema. No pneumothorax. No effusion. HEART: Unremarkable. Cardiac silhouette not enlarged. MEDIASTINUM: Central airways and mediastinal contour are unremarkable. BONES/JOINTS: There are compression deformities of the spine. These are age-indeterminate. MRI could further evaluate if of concern. Acute fracture of the right lateral 8th and 9th ribs. Levoscoliosis of the lumbar spine. Degenerative findings in the lumbar spine. RAD/Ribs Uni Min 3V w/PA Chest IMPRESSION: 1. There are compression deformities of the spine. These are age-indeterminate. MRI could further evaluate if of concern. 2. Acute fracture of the right lateral 8th and 9th ribs. Electronically Signed: Ran Busch MD at 18:32 EST ,
[2022-10-09 18:11] LABS: Anion Gap 2 (5-15); BUN 31 mg/dL (7-18); BUN/Creat Ratio 25.8 RATIO (10-20); Calcium,Total 10.8 mg/dL (8.5-10.1); Chloride 107 mmol/L (98-107); EST Glomerular Filtration Rate 62 mL/min (>60); Est Glom Filt Rate - Afr Amer 75 mL/min (>60); Estimated Creatinine Clearance 41.87 ml/min; Glucose 100 mg/dL (74-106); Potassium 4.4 mmol/L (3.5-5.1); Sodium Level 141 mmol/L (136-145)
[2022-10-09] MEDS: Morphine 4 MG/ML Syringe IV (18:23)
[2022-10-09 20:58] LABS: Magnesium 2.8 mg/dL (1.6-2.6); Phosphorus 3.5 mg/dL (2.5-4.9)
[2022-10-09] MEDS: Ipratropium/Albuterol Sulfate 3 ML AMPUL.NEB INHALATION (21:51)
--- NOTE | 2022-10-09 22:11 | HP.PCM.HOS_ITS ---
HPI - General General Date of Admission: 10/09/22 Date of Service: 10/09/22 Chief Complaint: Fall HPI Narrative LUNA MENDOZA, is a 81 M with a significant history of dementia; hypertension; and alpha trypsin deficiency who presents to the emergency department with fall. Reportedly patient fell on a bucket. He complains of pain at his right ribs. Patient is too weak and lives alone with who cannot take care of patient. [facility] Medical History Alzheimer disease CHF (congestive heart failure) HTN (hypertension) Home Medications aspirin 81 mg chewable tablet 81 mg PO DAILY 10/21/21 [History Last Taken Unknown] atenolol 100 mg tablet 100 mg PO BID 10/21/21 [History Last Taken Unknown] azelastine 137 mcg (0.1 %) nasal spray aerosol 2 spray intranasal BID 10/21/21 [History Last Taken Unknown] budesonide 0.5 mg/2 mL suspension for nebulization 0.5 mg inhalation BID 01/07 [History Last Taken Unknown] furosemide 40 mg tablet (Lasix) 20 mg PO DAILY 10/21/21 [History Last Taken Unknown] hydralazine 25 mg tablet 25 mg PO BID 10/21/21 [History Last Taken Unknown] ipratropium 0.5 mg-albuterol 3 mg (2.5 mg base)/3 mL nebulization soln 3 ml inhalation QHS 10/21/21 [History Last Taken Unknown] magnesium 500 mg tablet 500 mg PO BID 10/21/21 [History Last Taken Unknown] mecobalamin (vitamin B12) 1,000 mcg chewable tablet (B12 Active) 100 mcg PO BID 10/21/21 [History Last Taken Unknown] memantine 10 mg tablet 10 mg PO BID 10/21/21 [History Last Taken Unknown] esuhxoqj-qfk-srpat acid 300 mcg-lycopene 600 mcg-lutein 300 mcg tablet (Centrum Silver Men) 1 tab PO DAILY 10/21/21 [History Last Taken Unknown] rivastigmine 13.3 mg/24 hour transdermal patch (Exelon Patch) 13.3 mg transdermal DAILY 10/21/21 [History Last Taken Unknown] simvastatin 40 mg tablet 40 mg PO QHS 10/21/21 [History Last Taken Unknown] ascorbic acid (vitamin C) 1,000 mg tablet (Vitamin C) 250 mg PO DAILY 10/09/22 [History Last Taken Unknown] cholecalciferol (vitamin D3) 25 mcg (1,000 unit) chewable tablet 1,000 unit PO DAILY 10/09/22 [History Last Taken Unknown] Allergy/AdvReac Type Severity Reaction Status Date / Time No Known Allergies Allergy Verified 10/09/22 16:37 Family History Other Alzheimer's dementia Surgical History no surgical history no surgical history Social History Smoking Status: Current some day smoker tobacco type: cigarettes ROS Review of Systems ROS Unobtainable: due to mental condition Vital Signs Vital Signs Vital Signs: 10/09/22 16:31 10/09/22 16:38 10/09/22 18:29 Temperature 97.1 F L Temperature Source Temporal Pulse Rate 51 L 80 Respiratory Rate 18 20 H Respiratory Effort Normal Non-Labored Respiratory Depth Normal Respiratory Pattern Normal Blood Pressure 192/109 H 170/87 H Blood Pressure Mean 136 114 Pulse Ox 93 92 95 Oxygen Delivery Method Room Air Room Air Room Air 10/09/22 19:38 10/09/22 20:55 10/09/22 21:51 Temperature Temperature Source Pulse Rate 53 L 51 L 56 L Respiratory Rate 15 15 16 Respiratory Effort Respiratory Depth Respiratory Pattern Blood Pressure 160/86 H 192/98 H Blood Pressure Mean 110 129 Pulse Ox 90 87 Oxygen Delivery Method Room Air Room Air Weight Weight: 59.3 kg Body Mass Index (BMI) 20.5 Physical Exam Narrative Physical exam: General: Well-nourished, well-developed. Moans with movement. Head: Normocephalic, atraumatic, no tenderness Eyes: Vision is grossly intact. EOMI ENT, no trauma, moist mucous membranes, no rhinorrhea Neck: Nontender, No thyromegaly. CVS: Regular rate and rhythm. S1-S2 present. No murmur, gallop or rub. Respiratory : clear to auscultation bilaterally, chest wall nontender, no wheezing Abdomen: Soft, nontender, nondistended, normal bowel sounds, no masses : Deferred Back: Nontender, no CVA tenderness Extremities: Nontender full range of motion, no trauma Skin: Normal color, no trauma, abrasions Neuro: Alert, confused. Cranial nerves II through XII grossly intact. Psychiatry: Normal mood. Normal affect. Not depressed. Not anxious. Results Lab / Micro Data Attestation: I reviewed the patient's lab results. Result Diagrams: 10/09/22 15:31 10/09/22 15:31 Labs: Laboratory Results - last 24 hr 10/09/22 15:31: WBC 8.0, RBC 3.97 L, Hgb 12.3 L, Hct 37.8 L, MCV 95.2 H, MCH 31.0, MCHC 32.5, RDW Std Deviation 54.8 H, RDW Coeff of Bola 15.7 H, Plt Count 225, MPV 9.9, Immature Gran % (Auto) 0.500, Neut % (Auto) 73.9 H, Lymph % (Auto) 13.3 L, [place] % (Auto) 9.1, Eos % (Auto) 2.4, Baso % (Auto) 0.8, Absolute Neuts (auto) 5.9, Absolute Lymphs (auto) 1.06, Nucleated RBC % 0 10/09/22 15:31: Sodium 141, Potassium 4.4, Chloride 107, Carbon Dioxide 32.0, Anion Gap 2 L, BUN 31 H, Creatinine 1.20, Estim Creat Clear Calc 41.87, Est GFR (MDRD) Af Amer 75, Est GFR (MDRD) Non-Af 62, BUN/Creatinine Ratio 25.8 H, Glucose 100, Calcium 10.8 H 10/09/22 15:31: Phosphorus 3.5, Magnesium 2.8 H Radiology Impression Ribs w/Chest X-Ray 10/09/22 18:00 IMPRESSION: 1. There are compression deformities of the spine. These are age-indeterminate. MRI could further evaluate if of concern. 2. Acute fracture of the right lateral 8th and 9th ribs. Electronically Signed: Ran Busch MD at 18:32 EST Reading Location ID and State: [facility] / [place] , Service support , Assessment & Plan Assessment/Plan (1) Debility: (2) Rib fractures: (3) Hypoxia: PLAN: Plan Debility/fall/rib fractures Rib/chest x-ray was visualized and independent interpreted. I agree with radiologist interpretation of acute fracture of the right lateral eighth and ninth ribs. Compression deformities of the spine, age-indeterminate. Check vitamin D level. Urinalysis is unrevealing. Hypertension Blood pressure is not within goal Carvedilol continued. As needed hydralazine ordered. Trend blood pressure and adjust blood pressure medications. Chronic Congestive heart failure Unspecified whether reduced ejection fraction preserved ejection fraction. No echocardiogram on file. Stable with no edema or pulmonary infiltrates. Hypoxia Oxygen at the emergency department on room air at one time was 87%. Placed on supplemental oxygenation at the emergency department. Home inhalers continued. Of note the patient's has a history of alpha 1 antitrypsin deficiency. Reportedly COPD has not been officially diagnosed. Patient follows up with Dr. Granado. Oxygen saturation as necessary; titrate. Chronic anemia Hemoglobin 12.3. Stable. CKD stage II Stable. DVT prophylaxis: Subcutaneous Lovenox ordered. Charges/Coding Visit Charges OBSV E&M: 94409 Initial observation care L3
[2022-10-10] VITALS (9 sets, daily range): BP systolic 112–160; BP diastolic 56–80; PULSE 50–72; RESP 15–18; TEMP 36.6–37.3; O2SAT 93–97; BMI 20.3; BMI 20.5
[2022-10-10 03:06] LABS: Color, Urine Yellow (Yellow); Glucose, Dipstick Normal (Normal); Ketone-Dipstick 5 mg/dl (Negative); Leukocyte Esterase-Dipstick Negative /ul (Negative); Mucous, Urine 0 SEEN /hpf (<or=2+); Nitrite-Dipstick Negative (Negative); Occult Blood-Urine 150 /ul (Negative); Protein-Dipstick 15 mg/dl (Negative); Specific Gravity, Urine 1.015 (1.002-1.030); Squamous Epithelial Cells - UA 0 SEEN /hpf (0-5); Urine Bilirubin Dipstick Negative (Negative); Urine Clarity Clear (Clear); Urine Urobilinogen Normal (Normal); Urine pH 6.5 (5.0 - 8.0); White Blood Cells 0 SEEN /hpf (0-5)
[2022-10-10 03:13] LABS: Bacteria RARE /hpf (None Seen); Red Blood Cells-Urine 10-25 SEEN /hpf (0-5)
[2022-10-10 05:24] LABS: Absolute Lymphocyte Count 1.16 X10^3/uL (0.83-4.51); Absolute Neutrophil Count 5.1 X10^3/uL (2.0-7.7); Basophil# 0.06 X10^3/uL; Basophil% 0.8 % (0-1); Eosinophil# 0.15 X10^3/uL; Hematocrit 36.6 % (40-54); Hemoglobin 11.9 g/dL (13.0-16.5); Lymphocyte # 1.16 X10^3/ul (0.83-4.51); Lymphocyte % 15.8 % (19-41); Mean Corp Hgb Conc 32.5 g/dL (32-36); Mean Corpuscular Hgb 31.4 pg (27.0-32.0); Mean Corpuscular Volume 96.6 fL (80-94); Mean Platelet Vol. 10.5 fl (6.2-12.0); Monocyte# 0.82 X10^3/uL; Monocyte% 11.2 % (0-10); NRBC Flagged by Analyzer 0 % (0-5); Neutrophil # 5.12 X10^3/uL (2.7-7.7); Neutrophil % 69.8 % (47-70); Platelet Count 189 K/mm3 (150-450); RBC Distribution Width CV 15.8 % (11.6-14.6); RBC Distribution Width SD 55.9 fl (35.1-43.9); Red Blood Count 3.79 M/mm3 (4.6-6.2); White Blood Count 7.3 K/mm3 (4.4-11.0)
[2022-10-10 05:51] LABS: Vitamin D,25 Hydroxy 62.5 ng/mL
[2022-10-10 06:05] LABS: Anion Gap 6 (5-15); BUN 30 mg/dL (7-18); BUN/Creat Ratio 27.3 RATIO (10-20); Calcium,Total 9.9 mg/dL (8.5-10.1); Chloride 109 mmol/L (98-107); EST Glomerular Filtration Rate 69 mL/min (>60); Est Glom Filt Rate - Afr Amer 83 mL/min (>60); Estimated Creatinine Clearance 45.42 ml/min; Glucose 80 mg/dL (74-106); Potassium 3.8 mmol/L (3.5-5.1); Sodium Level 142 mmol/L (136-145)
[2022-10-10] MEDS: Budesonide Respules 0.5 MG/2 ML AMPUL.NEB. INHALATION ×2 (07:21→19:04)
--- NOTE | 2022-10-10 07:55 | CPS ---
Pt sat was 86% on RA due to Pt removing cannula. Replaced O2 at 2l, sat 95%
[2022-10-10] MEDS: Multivitamins,Ther W-Minerals Tablet 1 TABLET PO (10:12)
[2022-10-10] MEDS: Azelastine HCl NASAL.SRY 2 SPRAY NASAL ×2 (10:12→22:24)
[2022-10-10] MEDS: Aspirin 81 MG TAB.CHEW PO (10:12)
[2022-10-10] MEDS: Enoxaparin 40 MG/0.4 ML Syringe SC (10:14)
[2022-10-10] MEDS: Atenolol 100 MG Tablet PO (10:15)
[2022-10-10] MEDS: Magnesium Chloride 64 MG Delay Rel.Tablet 128 MG PO (10:15)
[2022-10-10] MEDS: Memantine Hydrochloride 10 MG Tablet PO (10:15)
[2022-10-10] MEDS: Ascorbic Acid 500 MG Tablet 250 MG PO (10:15)
[2022-10-10] MEDS: Cholecalciferol (VIT D3) 25 MCG TABLET (1,000 UNITS) PO (10:16)
--- NOTE | 2022-10-10 10:29 | CASEMGMT ---
Addendum entered by Joann Steinberg 10/10/22 15:53: JOHNIE Note JOHNIE called [facility] and inquired about their admission staff's ability to review a referral. SW was connected to Demetra's number due to her working from home today. JOHNIE left a voicemail requesting a call back to discuss patient's referral and provided Saravanan Pereira's number on MS3 [phone]. SNF list placed in patient's room for 's review. JOHNIE informed patient the list was in the room for his . Patient shook his head and then stated his stomach was hurting. JOHNIE explained she would inform his nurse. ИРИНА Flynn informed. SHIV Singh Addendum entered by Joann Steinberg 10/10/22 15:33: JOHNIE Note SW contacted patient's to report referrals had been sent to both SNFs of choice, but neither had responded yet. Patient's asked about patient's expected day of discharge. JOHNIE explained due to it being a holiday weekend discharge will depend on his acceptance to a SNF. Patient's reported an understanding and asked for an update on patient. JOHNIE stated she would have patient's nurse contact her for an update. JOHNIE informed ИРИНА Flynn patient's wanted a phone call for an update, RN agreed to call. SHIV Singh Addendum entered by Joann Steinberg 10/10/22 13:59: JOHNIE Note JOHNIE contacted [facility] due to [facility] stating they had not reviewed the referral. [facility] staff stated the admissions staff were no longer in for the day but should still be reviewing referrals. JOHNIE consulted with JOHNIE Pereira to discuss if referral should be sent to patient's second choice and was encouraged to send it. JOHNIE sent referral to [facility] per patient's 's request as their second choice for placement. SHIV Singh Addendum entered by Joann Steinberg 10/10/22 11:31: JOHNIE Note JOHNIE contacted [facility] and introduced herself and role as [facility] Health Care Coach. JOHNIE inquired about admissions due to [facility] stating their facility wasn't accepting new patients. Admissions staff, Aminta, stated they were accepting new patients and would review the referral via [facility]. SHIV Singh Original Note: JOHNIE Note SW contacted patient's and introduced herself and role as [facility] Health Care Coach. SW explained she would be working with patient and patient's family to start discussing discharge planning options. SW inquired about patient's baseline and support he was receiving prior to coming into the hospital. Patient's explained they live in a split level home, so there are a lot of stairs in total. Patient's stated the patient could navigate the stairs slowly using the rail. Patient's also stated patient could hold a conversation most days, needed support to get undressed and the shower prepped but he would bathe himself but he also needed help when he got out of the shower. Patient's reported she is aware that in his current state she is unable to provide enough care for him and is open to exploring SNFs. SW explained based on patient's insurance days 1-20 would be covered by insurance at 100% and days 21-100 would be covered at 80%, however, the secondary insurance could pickers material handlers the difference. SW recommended patient's contact insurance to verify coverage to avoid surprise bills. SW then reviewed in network SNFs, their location and Medicare star rating. Patient's explained she wanted to talk to patient about his options but selected [facility] (due to patient's father having a positive experience at that facility) and [facility] second. Patient's explained she planned to come into the hospital tomorrow (due to the weather) and would discuss those choices with patient. SW inquired about sending a referral to their first choice, patient's agreed. JOHNIE explained she would continue to work with the family for discharge planning and would be available if other needs arise, patient's was receptive towards information and reported an understanding. JOHNIE sent referral to [facility] via [facility]. Plan: [facility] pending acceptance and pre-cert Joann JEFFERY,SHIV
--- NOTE | 2022-10-10 11:58 | PN.HOSP_ITS ---
Subjective Subjective Follow-up on debility/falls, rib fractures: Patient was seen and examined. He is alert and oriented to self. He complains of pain in his side. No other acute events overnight. Objective Data Objective Data Vital Signs: Vital Signs Temp Pulse Resp BP Pulse Ox O2 Del Method O2 Flow Rate 98.5 F 55 L 16 132/60 H 97 Nasal Cannula 2 10/10/22 08:30 10/10/22 10:11 10/10/22 08:30 10/10/22 08:30 10/10/22 08:30 10/10/22 08:30 10/10/22 09:43 Oxygen Flow Rate (L/min) 2 Oxygen Delivery Method Nasal Cannula Weight: 58.967 kg Body Mass Index (BMI) 20.5 Intake & Output: Intake and Output for Last 24 Hours 10/08/22 10/09/22 10/10/22 23:59 23:59 23:59 Intake Total 500 / 500 Balance 500 / 500 Lab / Micro Data Result Diagrams: 10/10/22 04:29 10/10/22 04:29 Labs: Laboratory Results - last 24 hr 10/09/22 15:31: WBC 8.0, RBC 3.97 L, Hgb 12.3 L, Hct 37.8 L, MCV 95.2 H, MCH 31.0, MCHC 32.5, RDW Std Deviation 54.8 H, RDW Coeff of Bola 15.7 H, Plt Count 22 5, MPV 9.9, Immature Gran % (Auto) 0.500, Neut % (Auto) 73.9 H, Lymph % (Auto) 13.3 L, [place] % (Auto) 9.1, Eos % (Auto) 2.4, Baso % (Auto) 0.8, Absolute Neuts (auto) 5.9, Absolute Lymphs (auto) 1.06, Nucleated RBC % 0 10/09/22 15:31: Sodium 141, Potassium 4.4, Chloride 107, Carbon Dioxide 32.0, Anion Gap 2 L, BUN 31 H, Creatinine 1.20, Estim Creat Clear Calc 41.87, Est GFR (MDRD) Af Amer 75, Est GFR (MDRD) Non-Af 62, BUN/Creatinine Ratio 25.8 H, Glucose 100, Calcium 10.8 H 10/09/22 15:31: Phosphorus 3.5, Magnesium 2.8 H 10/10/22 03:00: Urine Color Yellow, Urine Clarity Clear, Urine pH 6.5, Ur Specific [place] 1.015, Urine Protein 15 H, Urine Glucose (UA) Normal, Urine Ketones 5 H, Urine Occult Blood 150 H, Urine Nitrite Negative, Urine Bilirubin Negative, Urine Urobilinogen Normal, Ur Leukocyte Esterase Negative, Urine RBC 10-25 SEEN, Urine WBC 0 SEEN, Ur Squamous Epith Cells 0 SEEN, Urine Bacteria RARE, Urine Mucus 0 SEEN 10/10/22 04:29: WBC 7.3, RBC 3.79 L, Hgb 11.9 L, Hct 36.6 L, MCV 96.6 H, MCH 31.4, MCHC 32.5, RDW Std Deviation 55.9 H, RDW Coeff of Bola 15.8 H, Plt Count 189, MPV 10.5, Immature Gran % (Auto) 0.400, Neut % (Auto) 69.8, Lymph % (Auto) 15.8 L, [place] % (Auto) 11.2 H, Eos % (Auto) 2.0, Baso % (Auto) 0.8, Absolute Neuts (auto) 5.1, Absolute Lymphs (auto) 1.16, Nucleated RBC % 0 10/10/22 04:29: Sodium 142, Potassium 3.8, Chloride 109 H, Carbon Dioxide 27.0, Anion Gap 6, BUN 30 H, Creatinine 1.10, Estim Creat Clear Calc 45.42, Est GFR (MDRD) Af Amer 83, Est GFR (MDRD) Non-Af 69, BUN/Creatinine Ratio 27.3 H, Glucose 80, Calcium 9.9, TSH 3.10 10/10/22 04:29: Vitamin D 25-Hydroxy 62.5 Micro: Microbiology 10/09/22 21:40 Nasal Secretion SARS-CoV-2 & FLU Antigen (Rapid) - Final Radiography Diagnostic Testing: Radiology Impression Ribs w/Chest X-Ray 10/09/22 18:00 IMPRESSION: 1. There are compression deformities of the spine. These are age-indeterminate. MRI could further evaluate if of concern. 2. Acute fracture of the right lateral 8th and 9th ribs. Electronically Signed: Ran Busch MD at 18:32 EST , Physical Exam Narrative Physical exam: General: Alert, Oriented to self, Cooperative, on 2 L of oxygen, frail HEENT: Atraumatic Oral: Moist Mucosa Neck: Supple Lungs: Diminished to auscultation Cardiovascular: HS I+II, regular, no murmurs Abdomen: Bowel Sounds Present, Soft, Non Tender Extremities: Bilateral pedal edema +1, dressing over the right lower leg. Skin: No rashes, No breakdown Neurological: Grossly intact Psych/Mental Status: Appropriate Assessment & Plan Assessment/Plan (1) Debility: (2) Rib fractures: (3) Hypoxia: PLAN: Plan 1. Acute right eighth and ninth lateral rib fractures, compression deformities of the spine, mechanical, secondary to fall Suspect also underlying osteoporosis Seen on x-ray of the chest We will continue with scheduled Tylenol, oxycodone as needed, PT/OT to evaluate and treat 2. Acute hypoxia likely related to atelectasis secondary to #1 Patient is currently on 2 L of oxygen, encourage use of incentive spirometer 3. Hypertension, controlled Continue on atenolol, hydralazine, 4. Anemia, microcytic microchromic, hemoglobin is 11.9 We will check iron stores 5. DVT prophylaxis?Lovenox subcu Disposition: Discharge to custodial facility when bed is available Charges/Coding Visit Charges Inpatient E&M: 23564 Subs Hosp L2
[2022-10-10] MEDS: oxyCODONE 5 MG Tablet PO (12:35)
[2022-10-10 12:43] LABS: Ferritin 105 ng/mL (26-388); Iron 136 ug/dL (65-175); Iron Binding Capacity,Total 396 ug/dL (250-450); PERCENT IRON SATURATION 34.3 % (15.0-55.0)
[2022-10-10] MEDS: Acetaminophen 500 MG Tablet 1000 MG PO (14:25)
--- NOTE | 2022-10-10 15:21 | CASEMGMT ---
ИРИНА RUTH made tc to discuss SCOTT form with patient . ИРИНА RUTH explained SCOTT form, patient voiced understanding after review several times. Pt gave verbal consent for signature on form and filed in chart. Pt provided with a copy of signed SCOTT form. Patient had no further questions or concerns at this time.
--- NOTE | 2022-10-10 17:50 | NURSING ---
Talked to pt , she is going to bring in the patients medication list and exelon patches, weather permitting 10/11
[2022-10-10] MEDS: hydrALAZINE 25 MG Tablet PO (18:20)
[2022-10-10] MEDS: 0.9% Saline Lock 10 ML Syringe IV (22:23)
[2022-10-11] VITALS (10 sets, daily range): BP systolic 125–145; BP diastolic 60–100; PULSE 47–60; RESP 15–18; TEMP 36.8–37; O2SAT 3–100
[2022-10-11 05:55] LABS: Absolute Lymphocyte Count 1.28 X10^3/uL (0.83-4.51); Absolute Neutrophil Count 4.5 X10^3/uL (2.0-7.7); Basophil# 0.04 X10^3/uL; Basophil% 0.6 % (0-1); Eosinophil# 0.23 X10^3/uL; Eosinophils% 3.3 % (0-5); Hematocrit 35.5 % (40-54); Hemoglobin 11.2 g/dL (13.0-16.5); Lymphocyte # 1.28 X10^3/ul (0.83-4.51); Lymphocyte % 18.3 % (19-41); Mean Corp Hgb Conc 31.5 g/dL (32-36); Mean Corpuscular Hgb 30.4 pg (27.0-32.0); Mean Corpuscular Volume 96.2 fL (80-94); Mean Platelet Vol. 10.7 fl (6.2-12.0); Monocyte# 0.89 X10^3/uL; Monocyte% 12.7 % (0-10); NRBC Flagged by Analyzer 0 % (0-5); Neutrophil # 4.54 X10^3/uL (2.7-7.7); Neutrophil % 64.8 % (47-70); Platelet Count 195 K/mm3 (150-450); RBC Distribution Width CV 15.9 % (11.6-14.6); RBC Distribution Width SD 55.9 fl (35.1-43.9); Red Blood Count 3.69 M/mm3 (4.6-6.2)
[2022-10-11 06:24] LABS: ALB/GLOB Ratio 0.8 RATIO (0.9-2.4); AST(SGOT) 24 U/L (15-37); Alanine Aminotransfer ALT/SGPT 17 U/L (16-61); Albumin, Serum 2.7 g/dL (3.2-5.0); Alkaline Phosphatase 39 U/L (45-117); Anion Gap 6 (5-15); BUN 28 mg/dL (7-18); BUN/Creat Ratio 23.9 RATIO (10-20); Calcium,Total 9.6 mg/dL (8.5-10.1); Chloride 110 mmol/L (98-107); Creatinine, Serum 1.17 mg/dL (0.70-1.30); EST Glomerular Filtration Rate 64 mL/min (>60); Est Glom Filt Rate - Afr Amer 77 mL/min (>60); Globulin 3.2 g/dL (2.2-4.2); Glucose 93 mg/dL (74-106); Potassium 3.4 mmol/L (3.5-5.1); Protein, Total 5.9 g/dL (6.4-8.2); Sodium Level 144 mmol/L (136-145)
--- NOTE | 2022-10-11 12:34 | CASEMGMT ---
Addendum entered by Joann Steinberg 10/11/22 14:35: SW Note JOHNIE contacted physician office secretary staff at [facility] and inquired about speaking to staff in admissions. JOHNIE was informed admissions staff is out for the holiday and would finish reviewing patient's referral after the holiday weekend. JOHNIE contacted patient's to explained both facilities are waiting to review the referral until after the holiday and inquired about a third SNF choice. Patient's stated she would prefer to wait until after the holidays to see if those facilities can accept him and would think about other SNF choices if those facilities couldn't accept. Joann JEFFERY, SHIV Original Note: JOHNIE Note SW received voice mail from [employer] ([phone]) with the [facility] stating they had received the referral for the patient, however, they wouldn't be able to finish reviewing or accept until early next week. JOHNIE contacted patient's and provided update regarding patient's SNF choices. Patient's stated she was okay with pursuing [facility] if they were able to accept patient sooner as long as he is still able to receive therapy while in the memory care unit. SW explained she would make contact with [facility] to further discuss acceptance for their facility. Patient's was in agreement. SW received message from [facility] stating Sounds like he would need to be in our memory care unit. We could skill him from there if they are okay with that. Would need to make sure the room is ready. JOHNIE responded and inquired about receiving therapy while in that unit, differences with insurance coverage on that unit as well as when they would be able to accept patient. JOHNIE waiting on response. Plan: [facility] pending acceptance Joann JEFFERY, SHIV
--- NOTE | 2022-10-11 12:49 | PCM.PN.HOSP ---
Subjective Subjective Is pain on right side over rib fractures, has dementia was unable to answer any further questions Objective Data Objective Data Vital Signs: Vital Signs Temp Pulse Resp BP Pulse Ox O2 Del Method O2 Flow Rate 98.5 F 55 L 15 136/68 H 93 Nasal Cannula 3 10/11/22 10:00 10/11/22 10:00 10/11/22 10:00 10/11/22 10:00 10/11/22 10:00 10/11/22 10:00 10/11/22 10:00 Oxygen Flow Rate (L/min) 3 Oxygen Delivery Method Nasal Cannula Weight: 58.967 kg Body Mass Index (BMI) 20.5 Intake & Output: Intake and Output for Last 24 Hours 10/09/22 10/10/22 10/11/22 23:59 23:59 23:59 Intake Total 500 / 500 Output Total 300 / 300 Balance 500 / 500 -300 / -300 Lab / Micro Data Result Diagrams: 10/11/22 04:43 10/11/22 04:43 Labs: Laboratory Results - last 24 hr 10/11/22 04:43: WBC 7.0, RBC 3.69 L, Hgb 11.2 L, Hct 35.5 L, MCV 96.2 H, MCH 30.4, MCHC 31.5 L, RDW Std Deviation 55.9 H, RDW Coeff of Bola 15.9 H, Plt Count 195, MPV 10.7, Immature Gran % (Auto) 0.300, Neut % (Auto) 64.8, Lymph % (Auto) 18.3 L, [place] % (Auto) 12.7 H, Eos % (Auto) 3.3, Baso % (Auto) 0.6, Absolute Neuts (auto) 4.5, Absolute Lymphs (auto) 1.28, Nucleated RBC % 0 10/11/22 04:43: Sodium 144, Potassium 3.4 L, Chloride 110 H, Carbon Dioxide 28.0, Anion Gap 6, BUN 28 H, Creatinine 1.17, Estim Creat Clear Calc 42.70, Est GFR (MDRD) Af Amer 77, Est GFR (MDRD) Non-Af 64, BUN/Creatinine Ratio 23.9 H, Glucose 93, Calcium 9.6, Total Bilirubin 0.50, AST 24, ALT 17, Alkaline Phosphatase 39 L, Total Protein 5.9 L, Albumin 2.7 L, Globulin 3.2, Albumin/Globulin Ratio 0.8 L Micro: Microbiology 10/09/22 21:40 Nasal Secretion SARS-CoV-2 & FLU Antigen (Rapid) - Final Physical Exam Const alert Constitutional Narrative: Laying in bed, not oriented HEENT normocephalic and head/scalp atraumatic Eyes Eyes Narrative: EOM grossly intact, anicteric Neck supple Resp normal respiratory effort and clear to auscultation bilaterally Resp Narrative: Pain over palpation of right hemithorax Cardio regular rate and regular rhythm GI soft to palpation, non-tender and non-distended Extremity Extremity Narrative: No edema appreciated Neuro moves all extremities Neuro Narrative: No overt focal deficits appreciated Psych Psych Narrative: Attempts to be cooperative Assessment & Plan Assessment/Plan (1) Debility: (2) Rib fractures: (3) Hypoxia: PLAN: Plan 1. Acute right eighth and ninth lateral rib fractures, compression deformities of the spine, mechanical, secondary to fall Suspect also underlying osteoporosis Seen on x-ray of the chest We will continue with scheduled Tylenol, oral and IV pain option if absolutely needed Will add lidocaine patch as well Awaiting placement 2. Acute hypoxia likely related to atelectasis secondary to #1 Patient is currently on 2 L of oxygen, encourage use of incentive spirometer 3. Hypertension, controlled Continue on atenolol, hydralazine, atenolol decreased d/t HR in 50's 4. Anemia, microcytic microchromic, hemoglobin is 11.9 Likely of chronic disease, iron panel within normal limits 5. DVT prophylaxis?Lovenox subcu Disposition: Discharge to long-term facility when bed is available Charges/Coding Visit Charges OBSV E&M: 42114 Subsequent observation care L2
[2022-10-11] MEDS: Morphine 2 MG/ML Syringe IV (14:10)
[2022-10-11] MEDS: Lidocaine 5% Patch 2 PATCH TOPICAL (16:38)
[2022-10-11] MEDS: Budesonide Respules 0.5 MG/2 ML AMPUL.NEB. INHALATION (19:36)
[2022-10-11] MEDS: Memantine Hydrochloride 10 MG Tablet PO (20:22)
[2022-10-11] MEDS: Acetaminophen 500 MG Tablet 1000 MG PO (20:22)
[2022-10-11] MEDS: Azelastine HCl NASAL.SRY 2 SPRAY NASAL (20:25)
[2022-10-11] MEDS: Magnesium Chloride 64 MG Delay Rel.Tablet 128 MG PO (20:25)
[2022-10-12] VITALS (10 sets, daily range): BP systolic 156–183; BP diastolic 80–94; PULSE 43–80; RESP 16–20; TEMP 36.6–36.7; O2SAT 91–100
[2022-10-12] MEDS: Acetaminophen 500 MG Tablet 1000 MG PO ×3 (05:41→22:59)
[2022-10-12 06:45] LABS: Absolute Lymphocyte Count 1.07 X10^3/uL (0.83-4.51); Absolute Neutrophil Count 6.3 X10^3/uL (2.0-7.7); Basophil# 0.04 X10^3/uL; Basophil% 0.5 % (0-1); Eosinophil# 0.15 X10^3/uL; Eosinophils% 1.8 % (0-5); Hematocrit 38.8 % (40-54); Hemoglobin 12.5 g/dL (13.0-16.5); Lymphocyte # 1.07 X10^3/ul (0.83-4.51); Lymphocyte % 12.7 % (19-41); Mean Corp Hgb Conc 32.2 g/dL (32-36); Mean Corpuscular Hgb 30.4 pg (27.0-32.0); Mean Corpuscular Volume 94.4 fL (80-94); Monocyte# 0.83 X10^3/uL; Monocyte% 9.9 % (0-10); NRBC Flagged by Analyzer 0 % (0-5); Neutrophil # 6.29 X10^3/uL (2.7-7.7); Neutrophil % 74.7 % (47-70); Platelet Count 199 K/mm3 (150-450); RBC Distribution Width CV 15.5 % (11.6-14.6); RBC Distribution Width SD 53.5 fl (35.1-43.9); Red Blood Count 4.11 M/mm3 (4.6-6.2); White Blood Count 8.4 K/mm3 (4.4-11.0)
[2022-10-12 07:22] LABS: ALB/GLOB Ratio 0.9 RATIO (0.9-2.4); AST(SGOT) 30 U/L (15-37); Alanine Aminotransfer ALT/SGPT 19 U/L (16-61); Albumin, Serum 3.2 g/dL (3.2-5.0); Alkaline Phosphatase 44 U/L (45-117); Anion Gap 4 (5-15); BUN 20 mg/dL (7-18); BUN/Creat Ratio 21.5 RATIO (10-20); Calcium,Total 10.2 mg/dL (8.5-10.1); Chloride 107 mmol/L (98-107); Creatinine, Serum 0.93 mg/dL (0.70-1.30); EST Glomerular Filtration Rate 83 mL/min (>60); Est Glom Filt Rate - Afr Amer 101 mL/min (>60); Estimated Creatinine Clearance 53.72 ml/min; Globulin 3.7 g/dL (2.2-4.2); Glucose 111 mg/dL (74-106); Potassium 3.6 mmol/L (3.5-5.1); Protein, Total 6.9 g/dL (6.4-8.2); Sodium Level 141 mmol/L (136-145)
[2022-10-12] MEDS: Budesonide Respules 0.5 MG/2 ML AMPUL.NEB. INHALATION ×2 (07:30→20:19)
[2022-10-12] MEDS: RIVASTIGMINE TD (09:49)
[2022-10-12] MEDS: Enoxaparin 30 MG/0.3 ML Syringe SC (09:50)
[2022-10-12] MEDS: Magnesium Chloride 64 MG Delay Rel.Tablet 128 MG PO ×2 (09:50→22:59)
[2022-10-12] MEDS: Multivitamins,Ther W-Minerals Tablet 1 TABLET PO (09:50)
[2022-10-12] MEDS: Atenolol 50 MG Tablet PO ×2 (09:50→23:00)
[2022-10-12] MEDS: Azelastine HCl NASAL.SRY 2 SPRAY NASAL ×2 (09:51→22:58)
[2022-10-12] MEDS: Aspirin 81 MG TAB.CHEW PO (09:51)
[2022-10-12] MEDS: hydrALAZINE 25 MG Tablet PO ×2 (09:52→17:53)
[2022-10-12] MEDS: Lidocaine 5% Patch 2 PATCH TOPICAL (09:52)
[2022-10-12] MEDS: Memantine Hydrochloride 10 MG Tablet PO ×2 (09:55→22:59)
[2022-10-12] MEDS: Ascorbic Acid 500 MG Tablet 250 MG PO (09:56)
[2022-10-12] MEDS: Cholecalciferol (VIT D3) 25 MCG TABLET (1,000 UNITS) PO (09:57)
--- NOTE | 2022-10-12 13:22 | PN.HOSP_ITS ---
Subjective Subjective Resting comfortably, no acute complaints Objective Data Objective Data Vital Signs: Vital Signs Temp Pulse Resp BP Pulse Ox O2 Del Method O2 Flow Rate 98.1 F 80 20 H 156/90 H 99 Nasal Cannula 2 10/12/22 02:04 10/12/22 09:52 10/12/22 07:30 10/12/22 02:04 10/12/22 07:30 10/12/22 08:00 10/12/22 08:00 Oxygen Flow Rate (L/min) 2 Oxygen Delivery Method Nasal Cannula Weight: 58.967 kg Body Mass Index (BMI) 20.5 Intake & Output: Intake and Output for Last 24 Hours 10/10/22 10/11/22 10/12/22 23:59 23:59 23:59 Intake Total Output Total 300 / 300 Balance -270 / -270 Lab / Micro Data Result Diagrams: 10/12/22 05:57 10/12/22 05:57 Labs: Laboratory Results - last 24 hr 10/12/22 05:57: WBC 8.4, RBC 4.11 L, Hgb 12.5 L, Hct 38.8 L, MCV 94.4 H, MCH 30.4, MCHC 32.2, RDW Std Deviation 53.5 H, RDW Coeff of Bola 15.5 H, Plt Count 199, MPV 11.0, Immature Gran % (Auto) 0.400, Neut % (Auto) 74.7 H, Lymph % (Auto) 12.7 L, Hopkins % (Auto) 9.9, Eos % (Auto) 1.8, Baso % (Auto) 0.5, Absolute Neuts (auto) 6.3, Absolute Lymphs (auto) 1.07, Nucleated RBC % 0 10/12/22 05:57: Sodium 141, Potassium 3.6, Chloride 107, Carbon Dioxide 30.0, Anion Gap 4 L, BUN 20 H, Creatinine 0.93, Estim Creat Clear Calc 53.72, Est GFR (MDRD) Af Amer 101, Est GFR (MDRD) Non-Af 83, BUN/Creatinine Ratio 21.5 H, Glucose 111 H, Calcium 10.2 H, Total Bilirubin 0.80, AST 30, ALT 19, Alkaline Phosphatase 44 L, Total Protein 6.9, Albumin 3.2, Globulin 3.7, Albumin/Globulin Ratio 0.9 Micro: Microbiology 10/09/22 21:40 Nasal Secretion SARS-CoV-2 & FLU Antigen (Rapid) - Final Physical Exam Const Constitutional Narrative: Sitting up in chair, no acute distress, falls asleep easily HEENT normocephalic and head/scalp atraumatic Eyes Eyes Narrative: EOM grossly intact, anicteric Neck supple Resp normal respiratory effort Cardio regular rate and regular rhythm GI soft to palpation, non-tender and non-distended Extremity Extremity Narrative: No edema appreciated Neuro moves all extremities Neuro Narrative: No overt focal deficits appreciated Psych Psych Narrative: Attempts to be cooperative Assessment & Plan Assessment/Plan (1) Debility: (2) Rib fractures: (3) Hypoxia: PLAN: Plan 1. Acute right eighth and ninth lateral rib fractures, compression deformities of the spine, mechanical, secondary to fall Suspect also underlying osteoporosis Seen on x-ray of the chest We will continue with scheduled Tylenol, oral and IV pain option if absolutely needed lidocaine patch as well Awaiting placement 2. Acute hypoxia likely related to atelectasis secondary to #1 Patient is currently on 2 L of oxygen, encourage use of incentive spirometer 3. Hypertension, controlled Continue on atenolol, hydralazine, atenolol decreased d/t HR in 50's 4. Anemia, microcytic microchromic, hemoglobin is 11.9 Likely of chronic disease, iron panel within normal limits 5. DVT prophylaxis?Lovenox subcu Disposition: Discharge to care home facility when bed is available Charges/Coding Visit Charges OBSV E&M: 14042 Subsequent observation care L1
[2022-10-12] MEDS: 0.9% Saline Lock 10 ML Syringe IV (22:58)
[2022-10-13] VITALS (12 sets, daily range): BP systolic 113–173; BP diastolic 64–96; PULSE 48–107; RESP 18–20; TEMP 36.6–38.4; O2SAT 89–96
[2022-10-13] MEDS: 0.9% Saline Lock 10 ML Syringe IV (00:03)
[2022-10-13] MEDS: Acetaminophen 500 MG Tablet 1000 MG PO ×3 (06:38→22:59)
[2022-10-13] MEDS: Budesonide Respules 0.5 MG/2 ML AMPUL.NEB. INHALATION ×2 (07:07→19:38)
[2022-10-13] MEDS: Multivitamins,Ther W-Minerals Tablet 1 TABLET PO (09:33)
[2022-10-13] MEDS: Aspirin 81 MG TAB.CHEW PO (09:33)
[2022-10-13] MEDS: Magnesium Chloride 64 MG Delay Rel.Tablet 128 MG PO ×2 (09:34→22:59)
[2022-10-13] MEDS: hydrALAZINE 25 MG Tablet 50 MG PO ×2 (09:34→22:59)
[2022-10-13] MEDS: Enoxaparin 30 MG/0.3 ML Syringe SC (09:34)
[2022-10-13] MEDS: Memantine Hydrochloride 10 MG Tablet PO ×2 (09:35→23:08)
[2022-10-13] MEDS: Ascorbic Acid 500 MG Tablet 250 MG PO (09:35)
[2022-10-13] MEDS: Lidocaine 5% Patch 2 PATCH TOPICAL (09:36)
[2022-10-13] MEDS: Azelastine HCl NASAL.SRY 2 SPRAY NASAL ×2 (09:36→23:06)
[2022-10-13] MEDS: RIVASTIGMINE TD (09:36)
[2022-10-13] MEDS: Cholecalciferol (VIT D3) 25 MCG TABLET (1,000 UNITS) PO (09:36)
--- NOTE | 2022-10-13 12:02 | PCM.PN.HOSP ---
Subjective Subjective Reports feeling fairly well today, no complaints Objective Data Objective Data Vital Signs: Vital Signs Temp Pulse Resp BP Pulse Ox O2 Del Method O2 Flow Rate 98 F 58 L 18 113/64 93 Nasal Cannula 2 10/13/22 09:28 10/13/22 09:34 10/13/22 09:28 10/13/22 09:28 10/13/22 09:28 10/13/22 09:30 10/13/22 09:30 Oxygen Flow Rate (L/min) 2 Oxygen Delivery Method Nasal Cannula Weight: 58.967 kg Body Mass Index (BMI) 20.5 Intake & Output: Intake and Output for Last 24 Hours 10/11/22 10/12/22 10/13/22 23:59 23:59 23:59 Intake Total 30 / 30 120 / 145 75 / 75 Output Total 300 / 300 Balance -270 / -270 120 / 145 75 / 75 Lab / Micro Data Result Diagrams: 10/12/22 05:57 10/12/22 05:57 Micro: Microbiology 10/09/22 21:40 Nasal Secretion SARS-CoV-2 & FLU Antigen (Rapid) - Final Physical Exam Const Constitutional Narrative: Sitting up in chair, no acute distress, more alert today HEENT normocephalic and head/scalp atraumatic Eyes Eyes Narrative: EOM grossly intact, anicteric Neck supple Resp normal respiratory effort Cardio regular rate and regular rhythm GI soft to palpation, non-tender and non-distended Extremity Extremity Narrative: No edema appreciated Neuro moves all extremities Neuro Narrative: No overt focal deficits appreciated Psych Psych Narrative: Attempts to be cooperative Assessment & Plan Assessment/Plan (1) Debility: (2) Rib fractures: (3) Hypoxia: PLAN: Plan 1. Acute right eighth and ninth lateral rib fractures, compression deformities of the spine, mechanical, secondary to fall Suspect also underlying osteoporosis Seen on x-ray of the chest We will continue with scheduled Tylenol, oral and IV pain option if absolutely needed lidocaine patch as well Awaiting placement 2. Acute hypoxia likely related to atelectasis secondary to #1 Intermittently uses 2 L to 3 L of nasal cannula, encourage incentive spirometry 3. Hypertension, controlled Continue on atenolol, hydralazine, atenolol decreased d/t HR in 50's 4. Anemia, microcytic microchromic, hemoglobin is 11.9 Likely of chronic disease, iron panel within normal limits 5. DVT prophylaxis?Lovenox subcu Disposition: Discharge to intermediate facility when bed is available Charges/Coding Visit Charges OBSV E&M: 81481 Subsequent observation care L1
[2022-10-13] MEDS: Atenolol 50 MG Tablet 25 MG PO (23:11)
[2022-10-13] MEDS: MELATONIN 10 MG TABLET PO (23:11)
[2022-10-14 04:50] VITALS: BP 148/71; PULSE 55; RESP 18; TEMP 36.7; O2SAT 18; O2SAT 99
[2022-10-14] MEDS: Acetaminophen 500 MG Tablet 1000 MG PO ×2 (05:03→14:02)
[2022-10-14] MEDS: Budesonide Respules 0.5 MG/2 ML AMPUL.NEB. INHALATION (07:15)
[2022-10-14 07:17] VITALS: PULSE 90; RESP 17; O2SAT 93
[2022-10-14 09:49] VITALS: BP 118/55; PULSE 51; RESP 18; TEMP 36.2; O2SAT 96
[2022-10-14] MEDS: Aspirin 81 MG TAB.CHEW PO (09:57)
[2022-10-14 09:58] VITALS: PULSE 51
[2022-10-14] MEDS: Multivitamins,Ther W-Minerals Tablet 1 TABLET PO (09:58)
[2022-10-14] MEDS: Enoxaparin 30 MG/0.3 ML Syringe SC (09:59)
[2022-10-14] MEDS: Magnesium Chloride 64 MG Delay Rel.Tablet 128 MG PO (09:59)
[2022-10-14] MEDS: RIVASTIGMINE TD (09:59)
[2022-10-14] MEDS: Nystatin Powder 15gm Bottle 1 APPLIC TOPICAL (09:59)
[2022-10-14] MEDS: Memantine Hydrochloride 10 MG Tablet PO (09:59)
[2022-10-14] MEDS: Lidocaine 5% Patch 2 PATCH TOPICAL (10:00)
[2022-10-14] MEDS: Azelastine HCl NASAL.SRY 2 SPRAY NASAL (10:00)
[2022-10-14] MEDS: Ascorbic Acid 500 MG Tablet 250 MG PO (10:01)
[2022-10-14] MEDS: Cholecalciferol (VIT D3) 25 MCG TABLET (1,000 UNITS) PO (10:01)
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
--- NOTE | 2022-10-14 14:01 | CASEMGMT ---
Social work SW notified family of acceptance to [facility]. viced understanding. Discussed discharge plan and informed ambulance would be set up for pt for transport when pt is medically ready and the bed at [place] is open. MARTI Royal
--- NOTE | 2022-10-14 14:27 | CASEMGMT ---
Addendum entered by Paola Singer 10/14/22 15:03: JOHNIE received PC from Julia at [place]. Julia informed pt needs booster for Covid. JOHNIE updated pt . agreeable for pt to receive booster at [facility]. Dr. Carr to order booster. Original Note: Social Work JOHNIE received notice bed at [facility] is open for pt. JOHNIE updated charge Nurse and bedside nurse. Bedside nurse aware pt needs covid test. JOHNIE also updated Dr. Carr. stated this morning pt is medically ready and will discharge today. PLAN: W, today MARTI Royal
[2022-10-14 14:30] VITALS: BP 120/76; PULSE 48; RESP 18; TEMP 36.1; O2SAT 98
--- NOTE | 2022-10-14 14:36 | PCM.DC.SUM ---
Providers Date of Admission: 10/09/22 Date of Discharge: 10/14/22 Primary Care Physician: Dr. Eduardo Welch DO Reason For Visit: DEBILITY, RIB FRACTURE Diagnosis Discharge Diagnosis (1) Debility: Status: Acute Code(s): R53.81 - Other malaise (2) Rib fractures: Status: Acute Code(s): S22.49XA - Multiple fractures of ribs, unspecified side, initial encounter for closed fracture (3) Hypoxia: Status: Acute Code(s): R09.02 - Hypoxemia Plan 1. Acute right eighth and ninth lateral rib fractures, compression deformities of the spine, mechanical, secondary to fall 2. Acute hypoxia likely related to atelectasis secondary to #1 3. Hypertension, controlled 4. Anemia, microcytic microchromic, hemoglobin is 11.9 Medications at Discharge Home Medications azelastine 137 mcg (0.1 %) nasal spray aerosol 2 spray intranasal BID 10/21/21 hydralazine 25 mg tablet 25 mg PO BID 10/21/21 magnesium 500 mg tablet 500 mg PO BID 10/21/21 mecobalamin (vitamin B12) 1,000 mcg chewable tablet (B12 Active) 100 mcg PO BID 10/21/21 ascorbic acid (vitamin C) 1,000 mg tablet (Vitamin C) 250 mg PO DAILY 10/09/22 aspirin 81 mg chewable tablet 81 mg PO DAILY 30 days #30 tabs 10/14/22 atenolol 50 mg tablet 25 mg PO BID 30 days #30 tabs 10/14/22 budesonide 0.5 mg/2 mL suspension for nebulization 0.5 mg (2 mL) inhalation BID 30 days #120 mL 10/14/22 cholecalciferol (vitamin D3) 25 mcg (1,000 unit) chewable tablet 1,000 unit PO DAILY 30 days #30 tabs 10/14/22 hydralazine 25 mg tablet 50 mg PO BID 30 days #120 tabs 10/14/22 ipratropium 0.5 mg-albuterol 3 mg (2.5 mg base)/3 mL nebulization soln 3 ml inhalation QHS PRN shortness of breath 30 days #90 mL 10/14/22 lidocaine 5 % topical patch 2 patch topical DAILY 14 days #28 ea 10/14/22 melatonin 10 mg sublingual tablet 10 mg PO QHS 30 days #30 tabs 10/14/22 memantine 10 mg tablet 10 mg PO BID 30 days #60 tabs 10/14/22 rivastigmine 13.3 mg/24 hour transdermal patch (Exelon Patch) 13.3 mg transdermal DAILY 30 days #30 ea 10/14/22 simvastatin 40 mg tablet 40 mg PO QHS 30 days #30 tabs 10/14/22 Hospital Course Summary of Care Provided Minutes Spent on Discharge: 35 Hospital Course: LUNA MENDOZA, is a 81 M with a significant history of dementia; hypertension; and alpha trypsin deficiency who presented to [facility] emergency department 10/09 after a fall over a bucket. He had pain in his right ribs and was found to have rib fractures. He was too weak and lives alone with his who cannot take care of him. Brought in and was given pain medication lidocaine patches for pain control, placement was recommended. During his admission he did use minimal O2 to off and on, possibly due to atelectasis with his rib fractures. He did not have respiratory distress and COVID and flu were negative. Directions provided as below: ?Lasix were held as he did not seem fluid overloaded, would recommend daily weights and consideration of resuming this in the future if appearing to become fluid overloaded ? Hydralazine increased for blood pressure ? Atenolol was decreased due to low heart rate ?Lidocaine patches as were added pain control Physical Exam Const Constitutional Narrative: Sitting up in no acute distress HEENT normocephalic and head/scalp atraumatic Eyes Eyes Narrative: EOM grossly intact, anicteric Neck supple Resp normal respiratory effort Cardio regular rate and regular rhythm GI soft to palpation, non-tender and non-distended Extremity Extremity Narrative: No edema appreciated Neuro moves all extremities Neuro Narrative: No overt focal deficits appreciated Psych Psych Narrative: Attempts to be cooperative Weight / BMI Weight Weight: 58.967 kg Body Mass Index (BMI) 20.5 ABG / Lab / Microbiology Data Result Diagrams: 10/12/22 05:57 10/12/22 05:57 Microbiology: Microbiology 10/09/22 21:40 Nasal Secretion SARS-CoV-2 & FLU Antigen (Rapid) - Final Meaningful Use Info Meaningful Use Diagnoses (Choose all that apply): None applicable Discharge Plan Admission Admit Date/Time: 10/09/22 22:02 Primary Reason for Your Visit: Falls Attending Provider: Carolyn Carr Primary Care Provider: Eduardo Welch Consulting Providers: Leonides Painter ; Ekaterina Enriquez Instructions Patient Instructions: ED Fall Prevention Additional Instructions / Restrictions: ?Lasix were held as he did not seem fluid overloaded, would recommend daily weights and consideration of resuming this in the future if appearing to become fluid overloaded ? Hydralazine increased for blood pressure ? Atenolol was decreased due to low heart rate ?Lidocaine patches as were added pain control Discharge Orders/Prescriptions Prescriptions: New atenolol 50 mg Tablet 25 mg PO BID 30 Days Qty: 30 0RF hydralazine 25 mg Tablet 50 mg PO BID 30 Days Qty: 120 0RF lidocaine 5 % Adhesive Patch,Medicated 2 patch topical DAILY 14 Days Qty: 28 0RF Protocol: *Topical Application Instructions APPLICATION INSTRUCTIONS: Apply to R mid hemithorax d/t rib fracture pain melatonin 10 mg Tablet, Sublingual 10 mg PO QHS 30 Days Qty: 30 0RF Continued azelastine 137 mcg (0.1 %) Aerosol,[place] 2 spray INTRANASAL BID magnesium 500 mg Tablet 500 mg PO BID mecobalamin (vitamin B12) [B12 Active] 1,000 mcg Tablet,Chewable 100 mcg PO BID simvastatin 40 mg Tablet 40 mg PO QHS 30 Days Qty: 30 0RF budesonide 0.5 mg/2 mL Suspension For Nebulization 0.5 mg INHALATION BID 30 Days Qty: 120 0RF Rx Instructions: 2 puffs BID aspirin 81 mg Tablet,Chewable 81 mg PO DAILY 30 Days Qty: 30 0RF memantine 10 mg Tablet 10 mg PO BID 30 Days Qty: 60 0RF cholecalciferol (vitamin D3) 25 mcg (1,000 unit) Tablet,Chewable 1,000 unit PO DAILY 30 Days Qty: 30 0RF rivastigmine [Exelon Patch] 13.3 mg/24 hour Patch 24 Hour 13.3 mg TRANSDERMAL DAILY 30 Days Qty: 30 0RF Changed ipratropium-albuterol 0.5 mg-3 mg(2.5 mg base)/3 mL Solution For Nebulization 3 ml INHALATION QHS PRN (Reason: shortness of breath) 30 Days Qty: 90 0RF Discontinued furosemide [Lasix] 40 mg Tablet 20 mg PO DAILY atenolol 100 mg Tablet 100 mg PO BID Centrum Silver Men 300-600-300 mcg Tablet 1 tab PO DAILY No Action hydralazine 25 mg Tablet 25 mg PO BID ascorbic acid (vitamin C) [Vitamin C] 1,000 mg tablet 250 mg PO DAILY Label Comments: Take tablet as directed Referrals / Follow Up: Eduardo Welch DO [Primary Care Provider] - See Referral Note (Follow-up with your primary care physician as indicated, during your stay at the skilled facility your physician will likely be managing your medical conditions) Disposition Disposition (needs filled in before D/C Order can be placed): Long Term Facility Charges/Coding Visit Charges OBSV E&M: 85825 Observation care discharge
--- NOTE | 2022-10-14 14:37 | TREXTCAR_ITS ---
Diet Diet Order/Speech Therapy: 10/13/22 10:09 Diet: Regular - General Food consistency:: Pureed Liquid Consistency:: Regular/Thin Dietary Modifications:: No Added Salt Is pt able to select menu?: No Diet Comments: fortified foods as able, total feed puree and thin by TSP only, crush meds, Routine Orders/Code Status Suppository Type: Dulcolax 10mg Suppository Frequency: Daily PRN O2 Liters per Minute: 2 O2 Frequency: PRN Keep PO Greater than or Equal to (%): 92 Code Status: DNRCC-A Wound(s) RT IRIZARRY: Wound Type: Stasis Ulcer HOWARD: Wound Type: Skin Tear Therapies Physical Therapy: Eval and Treat Occupational Therapy: Eval and Treat Speech Therapy: Eval and Treat Problem/Diagnosis (1) Debility: Status: Acute Code(s): R53.81 - Other malaise (2) Rib fractures: Status: Acute Code(s): S22.49XA - Multiple fractures of ribs, unspecified side, initial encounter for closed fracture (3) Hypoxia: Status: Acute Code(s): R09.02 - Hypoxemia Plan 1. Acute right eighth and ninth lateral rib fractures, compression deformities of the spine, mechanical, secondary to fall 2. Acute hypoxia likely related to atelectasis secondary to #1 3. Hypertension, controlled 4. Anemia, microcytic microchromic, hemoglobin is 11.9 Allergies/Procedures Done in Hospital Allergies No Known Allergies Allergy (Verified 10/09/22 16:37) Type of Care/Length of Stay Estimated LOS: Convalescent Care Less Than 30 days Type of Care Needed: Skilled Rehab Potential: Fair Prognosis: Fair Additional Orders/Day of Discharge Day of Discharge: 10/14/22 Dietary and Speech Recommendations Dietitian Recommendations/Changes: Continue regular no added salt diet with texture/consistency per ST to manage medical conditions Will discontinue ensure compact tid w/ medpass RD will order Ensure Pudding BID and Marlo BID to promote wound healing Discharge Plan Admission Admit Date/Time: 10/09/22 22:02 Primary Reason for Your Visit: Falls Attending Provider: Carolyn Carr Primary Care Provider: Eduardo Welch Consulting Providers: Leonides Painter ; Ekaterina Enriquez Instructions Patient Instructions: ED Fall Prevention Additional Instructions / Restrictions: ?Lasix were held as he did not seem fluid overloaded, would recommend daily papo ghts and consideration of resuming this in the future if appearing to become fluid overloaded ? Hydralazine increased for blood pressure ? Atenolol was decreased due to low heart rate ?Lidocaine patches as were added pain control Discharge Orders/Prescriptions Prescriptions: New atenolol 50 mg Tablet 25 mg PO BID 30 Days Qty: 30 0RF hydralazine 25 mg Tablet 50 mg PO BID 30 Days Qty: 120 0RF lidocaine 5 % Adhesive Patch,Medicated 2 patch topical DAILY 14 Days Qty: 28 0RF Protocol: *Topical Application Instructions APPLICATION INSTRUCTIONS: Apply to R mid hemit horax d/t rib fracture pain melatonin 10 mg Tablet, Sublingual 10 mg PO QHS 30 Days Qty: 30 0RF Continued azelastine 137 mcg (0.1 %) Aerosol,[place] 2 spray INTRANASAL BID magnesium 500 mg Tablet 500 mg PO BID mecobalamin (vitamin B12) [B12 Active] 1,000 mcg Tablet,Chewable 100 mcg PO BID simvastatin 40 mg Tablet 40 mg PO QHS 30 Days Qty: 30 0RF budesonide 0.5 mg/2 mL Suspension For Nebulization 0.5 mg INHALATION BID 30 Days Qty: 120 0RF Rx Instructions: 2 puffs BID aspirin 81 mg Tablet,Chewable 81 mg PO DAILY 30 Days Qty: 30 0RF memantine 10 mg Tablet 10 mg PO BID 30 Days Qty: 60 0RF cholecalciferol (vitamin D3) 25 mcg (1,000 unit) Tablet,Chewable 1,000 unit PO DAILY 30 Days Qty: 30 0RF rivastigmine [Exelon Patch] 13.3 mg/24 hour Patch 24 Hour 13.3 mg TRANSDERMAL DAILY 30 Days Qty: 30 0RF Changed ipratropium-albuterol 0.5 mg-3 mg(2.5 mg base)/3 mL Solution For Nebulization 3 ml INHALATION QHS PRN (Reason: shortness of breath) 30 Days Qty: 90 0RF Discontinued furosemide [Lasix] 40 mg Tablet 20 mg PO DAILY atenolol 100 mg Tablet 100 mg PO BID Centrum Silver Men 300-600-300 mcg Tablet 1 tab PO DAILY No Action hydralazine 25 mg Tablet 25 mg PO BID ascorbic acid (vitamin C) [Vitamin C] 1,000 mg tablet 250 mg PO DAILY Label Comments: Take tablet as directed Referrals / Follow Up: Eduardo Welch DO [Primary Care Provider] - See Referral Note (Follow-up with your primary care physician as indicated, during your stay at the skilled facility your physician will likely be managing your medical conditions) Disposition Disposition (needs filled in before D/C Order can be placed): Intermediate Facility
--- NOTE | 2022-10-14 15:53 | CASEMGMT ---
Social Work? SW notified pt and pt family of discharge to [facility] today. SW completed [facility] convalescent form in [employer]. SW faxed all discharge orders to [facility] via [employer]. SW made copies of discharge orders and placed on pt chart. Sent original orders in envelope with pt upon discharge.??Transport not set up d/t pt waiting on bivalent vaccine before going to SNF. SW unsure when it will happen. Disposition: [facility], skilled, convalescent, level of care? MARTI Royal?
--- NOTE | 2022-10-14 17:02 | NURSING ---
Report called to [facility] to nurse Kirsten.
== END 2022-10-14 18:20 ==
LOC: ED 22:04 → MS3 22:22
PROVIDERS: Internal Medicine; Admitting Provider Hospitalist; Emergency Provider Emergency Medicine; Visit Provider Internal Medicine
DX: S22.41XA Multiple fractures of ribs, right side, initial encounter for closed fracture (principal); L97.212 Non-pressure chronic ulcer of right calf with fat layer exposed; G30.9 Alzheimer's disease, unspecified; F02.80 Dementia in other diseases classified elsewhere, unspecified severity, without behavioral disturbance, psychotic disturbance, mood disturbance, and anxiety; I13.0 Hypertensive heart and chronic kidney disease with heart failure and stage 1 through stage 4 chronic kidney disease, or unspecified chronic kidney disease; I50.9 Heart failure, unspecified; Z79.82 Long term (current) use of aspirin; D64.9 Anemia, unspecified; R09.02 Hypoxemia; W01.198A Fall on same level from slipping, tripping and stumbling with subsequent striking against other object, initial encounter; F17.210 Nicotine dependence, cigarettes, uncomplicated; S50.811A Abrasion of right forearm, initial encounter; E86.0 Dehydration; R26.2 Difficulty in walking, not elsewhere classified; Z79.899 Other long term (current) drug therapy; Y93.01 Activity, walking, marching and hiking; Y99.9 Unspecified external cause status; Y92.89 Other specified places as the place of occurrence of the external cause; I87.2 Venous insufficiency (chronic) (peripheral); R00.1 Bradycardia, unspecified; N18.2 Chronic kidney disease, stage 2 (mild); R13.10 Dysphagia, unspecified; Z20.822 Contact with and (suspected) exposure to COVID-19
CPT/HCPCS: 0134A; 11042; 36415; 71101; 80048; 80053; 81001; 82306; 82728; 83540; 83550; 83735; 84100; 84443; 85025; 87426; 87428; 91313; 92507; 92526; 92610; 93005; 94640; 94762; 96361; 96372; 96374; 96376; 97110; 97162; 97166; 97530; 97535; 97802; 99218; 99251; 99252; 99285; J7040; A4216; G0378; G0463

== ENCOUNTER → 2022-10-16 | Outpatient (REF) | payer MEDICARE, OTHER, SELFPAY ==
[2022-10-16 07:18] LABS: Anion Gap 5 (5-15); BUN 29 mg/dL (7-18); BUN/Creat Ratio 26.4 RATIO (10-20); Calcium,Total 10.5 mg/dL (8.5-10.1); Chloride 111 mmol/L (98-107); EST Glomerular Filtration Rate 69 mL/min (>60); Est Glom Filt Rate - Afr Amer 83 mL/min (>60); Glucose 100 mg/dL (74-106); Potassium 3.5 mmol/L (3.5-5.1); Sodium Level 144 mmol/L (136-145)
[2022-10-16 08:00] LABS: Absolute Lymphocyte Count 0.89 X10^3/uL (0.83-4.51); Absolute Neutrophil Count 4.7 X10^3/uL (2.0-7.7); Basophil# 0.06 X10^3/uL; Basophil% 0.9 % (0-1); Eosinophil# 0.25 X10^3/uL; Eosinophils% 3.8 % (0-5); Hematocrit 37.8 % (40-54); Hemoglobin 12.6 g/dL (13.0-16.5); Lymphocyte # 0.89 X10^3/ul (0.83-4.51); Lymphocyte % 13.6 % (19-41); Mean Corp Hgb Conc 33.3 g/dL (32-36); Mean Corpuscular Hgb 31.7 pg (27.0-32.0); Monocyte# 0.63 X10^3/uL; Monocyte% 9.6 % (0-10); NRBC Flagged by Analyzer 0 % (0-5); Neutrophil % 71.9 % (47-70); Platelet Count 200 K/mm3 (150-450); RBC Distribution Width CV 15.9 % (11.6-14.6); RBC Distribution Width SD 55.7 fl (35.1-43.9); Red Blood Count 3.98 M/mm3 (4.6-6.2); White Blood Count 6.5 K/mm3 (4.4-11.0)
[2022-10-16 08:10] LABS: Vitamin B12 > 2000 pg/mL (211-911); Vitamin D,25 Hydroxy 61.8 ng/mL
[2022-10-17 08:21] LABS: Color, Urine Yellow (Yellow); Glucose, Dipstick Normal (Normal); Ketone-Dipstick Negative (Negative); Leukocyte Esterase-Dipstick Negative /ul (Negative); Nitrite-Dipstick Negative (Negative); Occult Blood-Urine 250 /ul (Negative); Protein-Dipstick 30 mg/dl (Negative); Specific Gravity, Urine 1.015 (1.002-1.030); Urine Bilirubin Dipstick Negative (Negative); Urine Clarity Sl. Cloudy (Clear); Urine Urobilinogen Normal (Normal)
== END ==
LOC: OLS.WHLCAR 05:00
PROVIDERS: Visit Provider Internal Medicine
DX: E78.5 Hyperlipidemia, unspecified (principal); E55.9 Vitamin D deficiency, unspecified; N18.2 Chronic kidney disease, stage 2 (mild); S22.41XD Multiple fractures of ribs, right side, subsequent encounter for fracture with routine healing; D50.9 Iron deficiency anemia, unspecified; I50.20 Unspecified systolic (congestive) heart failure; R31.9 Hematuria, unspecified
CPT/HCPCS: 36415; 80048; 81002; 82306; 82607; 85025; 87086

== ENCOUNTER 2022-10-24 21:45 | Inpatient (IN) | payer MEDICARE, OTHER, SELFPAY ==
[2022-10-24 21:46] VITALS: BP 123/99; PULSE 66; RESP 15; TEMP 36.7; O2SAT 83; BMI 19.9
[2022-10-24 21:50] VITALS: O2SAT 91
--- NOTE | 2022-10-24 21:55 | EKG12_ITS ---
Test Reason : ALT LOC Blood Pressure : / mmHG Vent. Rate : 067 BPM Atrial Rate : 067 BPM P-R Int : 164 ms QRS Dur : 084 ms QT Int : 442 ms P-R-T Axes : 076 036 059 degrees QTc Int : 467 ms Normal sinus rhythm Normal ECG Confirmed by SANTANA PARK, ELVIN ([id number]), editorial cartoonist SEBAS SKAGGS ([id number]) on 10/27/2022 11:07:17 AM Referred By: JILL Confirmed By:BHARGAVI DILLON MD
--- NOTE | 2022-10-24 21:56 | EX.ED.DYSGE1 ---
HPI History of Present Illness Chief Complaint: Alt LOC Detail of Chief Complaint: Depressed level conscious, hypoxia, raspy respiration Informant: spouse/S.O. Onset/Context/Timing Onset: Today Context: Sudden Onset Timing: Continuous Quality: Altered mental status Location: Prevent from nursing facility by ambulance Current Severity: Severe Maximum Severity: Severe Worsened by: Uncertain Relieved by: Nothing Associated Symptoms Associated Symptoms: Unable to determine Narrative Narrative: Patient is a 81-year-old male with history of Alzheimer's dementia, hypertension, hypercholesterolemia who is DNR Comfort Care arrest. He is unable to participate in history and physical is limited. Reviewing senior care documents indicates patient is on 2 L oxygen as needed to maintain saturation of 90%. did arrive. Discussed CODE STATUS. He is DNR Comfort Care arrest. As specifically if a CAT scan was to be obtained and he has an intracranial bleed which is a concern is he an operative candidate. Patient states she is torn . She stated her heart tells her to do everything and her head questions this . The past 3 days he has been very talkative according to . She has noted that his breathing is raspy. The informed me that he was recently mated for 2 right rib fractures. Prior similar symptoms: No Recent Illness/Hospitalization: Yes [facility] Medical History Alzheimer disease CHF (congestive heart failure) Fall at home HTN (hypertension) Hypoxia Home Medications azelastine 137 mcg (0.1 %) nasal spray aerosol 2 spray intranasal BID 10/21/21 [History Last Taken Unknown] magnesium 500 mg tablet 500 mg PO BID 10/21/21 [History Last Taken Unknown] aspirin 81 mg chewable tablet 81 mg PO DAILY 30 days #30 tabs 10/14/22 [Rx Last Taken Unknown] atenolol 50 mg tablet 25 mg PO BID 30 days #30 tabs 10/14/22 [Rx Last Taken Unknown] budesonide 0.5 mg/2 mL suspension for nebulization 0.5 mg (2 mL) inhalation BID 30 days #120 mL 10/14/22 [Rx Last Taken Unknown] cholecalciferol (vitamin D3) 25 mcg (1,000 unit) chewable tablet 1,000 unit PO DAILY 30 days #30 tabs 10/14/22 [Rx Last Taken Unknown] hydralazine 25 mg tablet 50 mg PO BID 30 days #120 tabs 10/14/22 [Rx Last Taken Unknown] ipratropium 0.5 mg-albuterol 3 mg (2.5 mg base)/3 mL nebulization soln 3 ml inhalation QHS PRN shortness of breath 30 days #90 mL 10/14/22 [Rx Last Taken Unknown] lidocaine 5 % topical patch 2 patch topical DAILY 14 days #28 ea 10/14/22 [Rx Last Taken Unknown] memantine 10 mg tablet 10 mg PO BID 30 days #60 tabs 10/14/22 [Rx Last Taken Unknown] rivastigmine 13.3 mg/24 hour transdermal patch (Exelon Patch) 13.3 mg transdermal DAILY 30 days #30 ea 10/14/22 [Rx Last Taken Unknown] simvastatin 40 mg tablet 40 mg PO QHS 30 days #30 tabs 10/14/22 [Rx Last Taken Unknown] Allergy/AdvReac Type Severity Reaction Status Date / Time No Known Allergies Allergy Verified 10/24/22 21:49 Family History Other Alzheimer's dementia Social History (Updated 10/24/22 @ 21:[address] Cong Last MD) household members: spouse housing: senior care Smoking Status: Current some day smoker tobacco type: cigarettes substance use type: does not use ROS ROS ED Review of Systems ROS Unobtainable: due to mental status and other Details: What is documented in the narrative HPI is the only history is available since the paramedics stated that they were given no information other than the paperwork from the senior care. Patient is unable to contribute to his history because of markedly depressed level of consciousness. EXAM Physical Exam Const Vital Signs: 10/24/22 21:46 10/24/22 21:50 10/24/22 22:03 Temperature 98.1 F Temperature Source Axillary Pulse Rate 66 Respiratory Rate 15 Respiratory Effort Respiratory Pattern Blood Pressure 123/99 H Blood Pressure Mean 107 Pulse Ox 83 91 89 Oxygen Delivery Method Room Air Nasal Cannula Room Air Oxygen Flow Rate (L/min) 3 10/24/22 22:42 10/24/22 23:26 10/24/22 22:21 Temperature 97.5 F L Temperature Source Temporal Pulse Rate 58 L 67 Respiratory Rate 18 16 Respiratory Effort Short of Breath Labored Respiratory Pattern Normal Blood Pressure 129/73 H Blood Pressure Mean 91 Pulse Ox 92 Oxygen Delivery Method Nasal Cannula Oxygen Flow Rate (L/min) 5 10/25/22 00:12 Temperature 97.4 F L Temperature Source Temporal Pulse Rate 56 L Respiratory Rate 16 Respiratory Effort Respiratory Pattern Blood Pressure 101/71 Blood Pressure Mean 81 Pulse Ox 93 Oxygen Delivery Method Nasal Cannula Oxygen Flow Rate (L/min) 5 Positive well developed and cachectic General Appearance ED: well developed and cachectic; Negative for cyanotic, diaphoretic, NAD or pallor Nutritional Appearance: cachectic HEENT Reports dry mucous membranes HEENT Narrative: There is dried food particles noted on his tongue, buccal mucosa and posterior pharynx. Ears are normal. Nares are patent. There is no angioedema. trauma Mouth ED: Yes dry mucous membranes Mouth: dry mucous membranes Eyes PERRL General Eye ED: Negative for pale conjunctiva or scleral icterus Neck no lymphadenopathy, supple and no JVD Neck Narrative: Trachea is midline. There is no inspiratory or expiratory stridor. Chest Wall palpation of chest normal Resp No normal respiratory effort and No clear to auscultation bilaterally Resp Narrative: There is minimal use of accessory muscles. Auscultation: rhonchi right lower (Predominantly right lower lung posteriorly) Cardio regular rate, regular rhythm, S1 normal heart sound, S2 normal heart sound and no murmurs GI normal to inspection, nondistended, normoactive bowel sounds and non-distended; Negative for hepatosplenomegaly Auscultation: hypoactive bowel sounds Palpation: soft Back/Spine Back/Spine Narrative: Back appears normal. Extremity Negative for normal to inspection Extremity Narrative: Patient has edema and discoloration of both feet and legs. Capillary refill is 2 to 3 seconds. Neuro No oriented x3 Neuro Narrative: GCS is 6 Sensorium / Orientation: orientation impaired and stuporous; Negative for alert Psych Psych Narrative: Unable to determine Skin No no rashes or lesions noted General Skin Exam: Negative for jaundice or pallor MDM MDM MDM Narrative Medical decision making narrative: With evidence of head trauma need to rule out intracranial bleed. The fact the patient is hypoxic with rhonchi and food particles noted the posterior pharynx concern he may have aspirated. EKG was obtained to evaluate for cardiac ischemia. CBC to assess white count and assess H&H. Competence metabolic panel to assess electrolytes, CO2 anion gap and to determine if there is any evidence of endorgan dysfunction since there is a concern for aspiration pneumonitis causing his hypoxia. Spoke with regarding need for chest tube. She understands. We will review risks benefits and determine if this is what she desires based on her earlier comments. Lab Data Attestation: I reviewed the patient's lab results. Lab results narrative: CBC reveals elevated white count with shift. There is no bandemia. H&H is 10.6 and 32.2. Comprehensive metabolic panel reveals elevated BUN to creatinine ratio of 30:1 with a BUN of 40 and a creatinine 1.32. This is consistent with dehydration. Lactate is normal. Calcium is elevated at 10.6. Albumin is low. Calcium level is normal once corrected for hypoalbuminemia. Labs: Laboratory Results - last 24 hr 10/24/22 10/24/22 10/24/22 22:00 22:00 22:00 WBC 12.0 H RBC 3.43 L Hgb 10.6 L Hct 32.2 L MCV 93.9 MCH 30.9 MCHC 32.9 RDW Std Deviation 53.1 H RDW Coeff of Bola 15.6 H Plt Count 280 MPV 11.0 Immature Gran % (Auto) 0.300 Neut % (Auto) 89.5 H Lymph % (Auto) 5.4 L Stewart % (Auto) 4.6 Eos % (Auto) 0.0 Baso % (Auto) 0.2 Absolute Neuts (auto) 10.7 H Absolute Lymphs (auto) 0.65 L Nucleated RBC % 0 Platelet Estimate ADEQUATE RBC Morphology N CHROM Anisocytosis RARE Macrocytosis RARE Sodium 143 Potassium 4.0 Chloride 111 H Carbon Dioxide 28.0 Anion Gap 4 L BUN 40 H Creatinine 1.32 H Estim Creat Clear Calc 37.10 Est GFR (MDRD) Af Amer 67 Est GFR (MDRD) Non-Af 56 L BUN/Creatinine Ratio 30.3 H Glucose 139 H Lactic Acid 1.6 Calcium 10.6 H Total Bilirubin 0.90 AST 27 ALT 32 Alkaline Phosphatase 66 Total Protein 6.9 Albumin 2.9 L Globulin 4.0 Albumin/Globulin Ratio 0.7 L Urine Color Urine Clarity Urine pH Ur Specific [place] Urine Protein Urine Glucose (UA) Urine Ketones Urine Occult Blood Urine Nitrite Urine Bilirubin Urine Urobilinogen Ur Leukocyte Esterase Urine RBC Urine WBC Ur Squamous Epith Cells Urine Bacteria Urine Mucus 10/24/22 22:30 WBC RBC Hgb Hct MCV MCH MCHC RDW Std Deviation RDW Coeff of Bola Plt Count MPV Immature Gran % (Auto) Neut % (Auto) Lymph % (Auto) Stewart % (Auto) Eos % (Auto) Baso % (Auto) Absolute Neuts (auto) Absolute Lymphs (auto) Nucleated RBC % Platelet Estimate RBC Morphology Anisocytosis Macrocytosis Sodium Potassium Chloride Carbon Dioxide Anion Gap BUN Creatinine Estim Creat Clear Calc Est GFR (MDRD) Af Amer Est GFR (MDRD) Non-Af BUN/Creatinine Ratio Glucose Lactic Acid Calcium Total Bilirubin AST ALT Alkaline Phosphatase Total Protein Albumin Globulin Albumin/Globulin Ratio Urine Color Yellow Urine Clarity Clear Urine pH 6.0 Ur Specific [place] 1.015 Urine Protein 15 H Urine Glucose (UA) Normal Urine Ketones Negative Urine Occult Blood Negative Urine Nitrite Negative Urine Bilirubin Negative Urine Urobilinogen Normal Ur Leukocyte Esterase Negative Urine RBC 0 SEEN Urine WBC 0 SEEN Ur Squamous Epith Cells 0 SEEN Urine Bacteria RARE Urine Mucus 0 SEEN ABG reveals a alkalosis respiratory with a pH of 7.58, PCO2 of 25, PO2 of 47, bicarb 24.0 with a base excess of 2.1. O2 sat is 90%, which correlates with the pulse ox. ABG Data ABG results: ABG 10/24/22 22:14 Specimen Type ART Sample Site R Radial pH 7.58 H Bicarbonate Actual 24.0 Total CO2 25 Base Excess 2 O2 Saturation 90 L ABG pCO2 25.4 L ABG pO2 48 L Brayden Test Positive O2 Delivery Device Cannula Liter Flow 4.0 Radiography Chest X-Ray - ED: 1 View (Single view portable chest x-ray was obtained by az. The film is rotated. There is evidence of infiltrate on the right side consistent with aspiration. And there is a apical pneumothorax. I did receive a call from the radiologist that he believes there is also an inferior lateral pneumothorax.) and Read by ED Physician Diagnostic Testing: Clinical Impression(s) from Imaging Studies Brain CT 10/24/22 22:03 IMPRESSION: 1. Diffuse involutional change, chronic microvascular deep white matter disease and area of suspected remote lacunar infarct along the medial aspect of the RIGHT frontal lobe. 2. No intracranial evidence of acute traumatic injury. Electronically Signed: Femi Ham MD at 0:08 EST , Chest X-Ray 10/24/22 22:12 IMPRESSION: 1. RIGHT basilar airspace consolidation, RIGHT effusion and findings consistent with a RIGHT apical and RIGHT basilar pneumothorax without mediastinal shift. 2. Displaced RIGHT lower rib fractures. 3. Worsening atelectasis at the LEFT lung base. 4. No congestive failure. NSC (nonstandard communication) notification was initiated at 9:25 PM ELECTRONIC PREPRESS SYSTEM OPERATOR Electronically Signed: Femi Ham MD at 22:26 EST , ADDENDUM: 10/24/22 2238 IMPRESSION: 1. RIGHT basilar airspace consolidation, RIGHT effusion and findings consistent with a RIGHT apical and RIGHT basilar pneumothorax without mediastinal shift. 2. Displaced RIGHT lower rib fractures. 3. Worsening atelectasis at the LEFT lung base. 4. No congestive failure. NSC (nonstandard communication) notification was initiated at 9:25 PM ELECTRONIC PREPRESS SYSTEM OPERATOR N.B. : The above Results were Read Back by Femi Ham MD to Cong Last MD, and understanding confirmed on 10/24/2022 22:31:26 (ET). Electronically Signed: Femi Ham MD at 22:26 EST , Chest X-Ray 10/24/22 23:40 IMPRESSION: 1. Interval placement of a RIGHT pleural pigtail catheter. Persistent RIGHT apical and RIGHT basilar pneumothorax. 2. Persistent although significantly improved atelectasis versus infiltrate at the LEFT lung base, persistent RIGHT effusion. 3. Atelectasis at the LEFT base. Electronically Signed: Femi Ham MD at 0:10 EST , EKG Initial EKG: Attestation: I personally reviewed and interpreted this EKG as follows: Interpretation: Sinus Rhythm (EKG is normal with a ventricular rate of 67. WI interval 254 ms. QS duration 84 ms. QT duration 442 ms. [place] is normal.) Procedures Other Procedures Procedure(s): signed consent for chest tube right side. was informed of risk benefits. was given opportunity ask questions none were asked. Confirmed prior to placement of chest tube if this is something she would want since it is invasive. She stated she did. Patient's is the POA. She states no life support and no CPR. At this point she is agreeable to chest tube and treat the pneumonia. Patient was prepped draped sterile manner. Midclavicular fourth intercostal space was entered with needle. Using Salinger technique 14 British thoracostomy tube was placed. Initially this was connected to Heimlich valve. Patient has significant mount of bloody drainage. Subsequently was placed to a Pneumovax. Will order chest x-ray to confirm proper placement and reexpansion of lung. Critical Care Time Critical Care Time: Yes Critical care time (excluding procedures): 30-74 minutes (32), Including time spent: (History, physical, documentation review of prior admission), Discussing w/Patient &/or Family/Door To Door Salesman (Documented in MDM), Discussing w/Consultants (Cough take with child nutrition director regarding chest tube management and hospitalist), Arranging Admission or Transfer and Performing Direct Patient Care at Bedside Discharge Plan Triage Chief Complaint: Alt LOC ED Provider: Cong Last Dx/Rx/DC Orders Clinical Impression: Aspiration pneumonia due to vomit, Hemopneumothorax on right, Multiple fractures of ribs of right side, Acute encephalopathy, Hypoxia, Renal insufficiency, Dementia Prescriptions: No Action azelastine 137 mcg (0.1 %) Aerosol,[place] 2 spray INTRANASAL BID magnesium 500 mg Tablet 500 mg PO BID atenolol 50 mg Tablet 25 mg PO BID 30 Days Qty: 30 0RF hydralazine 25 mg Tablet 50 mg PO BID 30 Days Qty: 120 0RF lidocaine 5 % Adhesive Patch,Medicated 2 patch topical DAILY 14 Days Qty: 28 0RF Protocol: *Topical Application Instructions APPLICATION INSTRUCTIONS: Apply to R mid hemithorax d/t rib fracture pain ipratropium-albuterol 0.5 mg-3 mg(2.5 mg base)/3 mL Solution For Nebulization 3 ml INHALATION QHS PRN (Reason: shortness of breath) 30 Days Qty: 90 0RF simvastatin 40 mg Tablet 40 mg PO QHS 30 Days Qty: 30 0RF budesonide 0.5 mg/2 mL Suspension For Nebulization 0.5 mg INHALATION BID 30 Days Qty: 120 0RF Rx Instructions: 2 puffs BID aspirin 81 mg Tablet,Chewable 81 mg PO DAILY 30 Days Qty: 30 0RF memantine 10 mg Tablet 10 mg PO BID 30 Days Qty: 60 0RF cholecalciferol (vitamin D3) 25 mcg (1,000 unit) Tablet,Chewable 1,000 unit PO DAILY 30 Days Qty: 30 0RF rivastigmine [Exelon Patch] 13.3 mg/24 hour Patch 24 Hour 13.3 mg TRANSDERMAL DAILY 30 Days Qty: 30 0RF Primary Care Provider: Eduardo Welch Referrals: Eduardo Welch DO [Primary Care Provider] - Disposition Disposition: Acute Care Hospital [facility]
[2022-10-24 22:03] VITALS: O2SAT 89
--- NOTE | 2022-10-24 22:03 | CT_ITS ---
INDICATION: Closed head injury EXAMINATION: CT BRAIN - CT Head or Brain W/O Contrast Injection TECHNIQUE: Multiple axial images were obtained of the head without intravenous contrast. A radiation dose optimization technique was used for this scan. IV Contrast dosage and agent: None. RADIATION DOSAGE (If Supplied By Facility): CTDIvol = ( 44.99 ) mGy, DLP = ( 863.60 ) mGycm COMPARISON: No relevant prior examinations for comparison FINDINGS: HEMISPHERES: 1. The cerebral parenchyma, ventricular system, subarachnoid spaces have normal configuration and density. There is a normal gyral pattern. There is normal lin/white differentiation. No midline shift.. 2. 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 3. There is focal area of mild subcortical edema versus encephalomalacic change at the confluence of the RIGHT superior frontal gyrus and the precentral gyrus. Area of chronic or remote ischemic change is a consideration. 4. No intraparenchymal mass, hemorrhage, or acute territorial infarct. CEREBELLUM - BRAINSTEM: The cerebellum, brainstem, basilar and suprasellar cisterns have normal appearance. No Chiari malformation. PITUITARY: Infundibulum and pituitary have normal configuration. Midline structures appear normal. CSF SPACES: Appropriate for age. No hydrocephalus. Basal cisterns are patent. VESSELS: 1. Moderate vascular calcifications in the cavernous carotid vessels. 2. No hyperdense vascular signs noted.. ORBITS AND PARANASAL SINUSES: 1. Normal appearance of the bony orbits. Normal appearance of the globes and retrobulbar soft tissues.. 2. Paranasal sinuses are clear. BONY ELEMENTS: Bony elements of the cranial vault, facial skeleton and skull base have normal appearance. SCALP AND SOFT TISSUES: Normal appearance of the soft tissues of the scalp and the visualized face OTHER: None ASPECTS Score for Acute Strokes: 10 CT/Brain/Head without Contrast IMPRESSION: 1. Diffuse involutional change, chronic microvascular deep white matter disease and area of suspected remote lacunar infarct along the medial aspect of the RIGHT frontal lobe. 2. No intracranial evidence of acute traumatic injury. Electronically Signed: Femi Ham MD at 0:08 EST ,
[2022-10-24 22:10] LABS: Absolute Lymphocyte Count 0.65 X10^3/uL (0.83-4.51); Absolute Neutrophil Count 10.7 X10^3/uL (2.0-7.7); Basophil# 0.02 X10^3/uL; Basophil% 0.2 % (0-1); Hematocrit 32.2 % (40-54); Hemoglobin 10.6 g/dL (13.0-16.5); Lymphocyte # 0.65 X10^3/ul (0.83-4.51); Lymphocyte % 5.4 % (19-41); Mean Corp Hgb Conc 32.9 g/dL (32-36); Mean Corpuscular Hgb 30.9 pg (27.0-32.0); Mean Corpuscular Volume 93.9 fL (80-94); Monocyte# 0.55 X10^3/uL; Monocyte% 4.6 % (0-10); NRBC Flagged by Analyzer 0 % (0-5); Neutrophil # 10.72 X10^3/uL (2.7-7.7); Neutrophil % 89.5 % (47-70); POSITIVE MORPHOLOGY YES; Platelet Count 280 K/mm3 (150-450); RBC Distribution Width CV 15.6 % (11.6-14.6); RBC Distribution Width SD 53.1 fl (35.1-43.9); Red Blood Count 3.43 M/mm3 (4.6-6.2)
--- NOTE | 2022-10-24 22:12 | RAD_ITS ---
We are attempting to reach an attending provider to discuss findings. An addendum with communication details will be sent when the communication is complete. INDICATION: Apnea, rhonchi, hypoxia EXAMINATION/TECHNIQUE: X-RAY - XR Chest 1 View COMPARISON: 10/09/2022 FINDINGS: LIFE-SUPPORT AND LINES: 1. None HEART AND VESSELS: The cardiac silhouette, pulmonary vasculature have normal appearance. No evidence of congestive failure. LUNGS AND PLEURAL SPACES: There is a significant development of RIGHT lower lobe infiltrate consolidation. There is a moderate to large RIGHT effusion. A pleural line is noted at the RIGHT apex, and a lucency at the RIGHT base is noted, findings are suspicious of pneumothorax without mediastinal shift. Atelectasis is present at the LEFT base. No pulmonary mass is noted. MEDIASTINUM AND HILAR REGIONS: No masses adenopathy noted. No areas of calcification. Visualized upper airway is normal in position. BONY ELEMENTS: Diffuse osteopenia, and displaced RIGHT 10th and 11th rib fractures present. RAD/Chest 1 View (Portable) IMPRESSION: 1. RIGHT basilar airspace consolidation, RIGHT effusion and findings consistent with a RIGHT apical and RIGHT basilar pneumothorax without mediastinal shift. 2. Displaced RIGHT lower rib fractures. 3. Worsening atelectasis at the LEFT lung base. 4. No congestive failure. NSC (nonstandard communication) notification was initiated at 9:25 PM MEDICAL COLLECTIONS Electronically Signed: Femi Ham MD at 22:26 EST ,
[2022-10-24 22:20] LABS: Allen Test Positive; Base Excess 2 mmol/L (-2 to +2); Blood Gas Specimen Type ART; O2 Delivery Device Cannula; PO2 48 mmHG (75-100); SITE R Radial; SO2 90 % (95-99); Total Carbon Dioxide 25 mmol/L; pCO2 25.4 mmHg (35-45); pH 7.58 (7.35-7.45)
[2022-10-24 22:21] VITALS: PULSE 67; RESP 16
[2022-10-24 22:21] LABS: Differential Indicated SCAN CRITERIA MET
[2022-10-24] MEDS: Albuterol 2.5 MG/3 ML VIAL.NEB. INHALATION (22:21)
[2022-10-24 22:31] LABS: ALB/GLOB Ratio 0.7 RATIO (0.9-2.4); AST(SGOT) 27 U/L (15-37); Alanine Aminotransfer ALT/SGPT 32 U/L (16-61); Albumin, Serum 2.9 g/dL (3.2-5.0); Alkaline Phosphatase 66 U/L (45-117); Anion Gap 4 (5-15); BUN 40 mg/dL (7-18); BUN/Creat Ratio 30.3 RATIO (10-20); Calcium,Total 10.6 mg/dL (8.5-10.1); Chloride 111 mmol/L (98-107); Creatinine, Serum 1.32 mg/dL (0.70-1.30); EST Glomerular Filtration Rate 56 mL/min (>60); Est Glom Filt Rate - Afr Amer 67 mL/min (>60); Glucose 139 mg/dL (74-106); Protein, Total 6.9 g/dL (6.4-8.2); Sodium Level 143 mmol/L (136-145)
[2022-10-24 22:33] LABS: Anisocytosis RARE; Macrocytosis RARE; Platelet Estimate ADEQUATE (ADEQ); Red Cell Morphology N CHROM NORMAL (NORM C&C)
[2022-10-24 22:37] LABS: Mucous, Urine 0 SEEN /hpf (<or=2+); Red Blood Cells-Urine 0 SEEN /hpf (0-5); Squamous Epithelial Cells - UA 0 SEEN /hpf (0-5); White Blood Cells 0 SEEN /hpf (0-5)
[2022-10-24 22:38] LABS: Color, Urine Yellow (Yellow); Glucose, Dipstick Normal (Normal); Ketone-Dipstick Negative (Negative); Leukocyte Esterase-Dipstick Negative /ul (Negative); Nitrite-Dipstick Negative (Negative); Occult Blood-Urine Negative /ul (Negative); Protein-Dipstick 15 mg/dl (Negative); Specific Gravity, Urine 1.015 (1.002-1.030); Urine Bilirubin Dipstick Negative (Negative); Urine Clarity Clear (Clear); Urine Urobilinogen Normal (Normal)
[2022-10-24 22:40] LABS: Lactic Acid 1.6 mmol/L (0.4-1.9)
[2022-10-24 22:46] LABS: Bacteria RARE /hpf (None Seen)
[2022-10-24] MEDS: Lidocaine 1% (20 ml mdv) 20 ML Vial 5 ML INFILT (22:52)
[2022-10-24 23:26] VITALS: BP 129/73; PULSE 58; RESP 18; TEMP 36.4; O2SAT 92
[2022-10-24] MEDS: Morphine 4 MG/ML Syringe IV (23:28)
--- NOTE | 2022-10-24 23:33 | ED.RN ---
85 ml noted in chest tube drainage system
--- NOTE | 2022-10-24 23:40 | RAD_ITS ---
INDICATION: Chest tube placement right side EXAMINATION/TECHNIQUE: X-RAY - XR Chest 1 View COMPARISON: Earlier same date FINDINGS: LIFE-SUPPORT AND LINES: 1. Interval placement of a RIGHT pleural pigtail catheter along lateral aspect of the RIGHT chest. Persistent RIGHT apical pneumothorax with negligible change. Small anterior pneumothorax suspected at the RIGHT base also without change. 2. No mediastinal shift. HEART AND VESSELS: The cardiac silhouette, pulmonary vasculature have normal appearance. No evidence of congestive failure. LUNGS AND PLEURAL SPACES: Mild improvement of the previous infiltrate at the RIGHT base and RIGHT effusion. Significant residual however noted. Persistent mildly worsened atelectasis at the LEFT base. No pulmonary mass is noted. MEDIASTINUM AND HILAR REGIONS: No masses adenopathy noted. No areas of calcification. Visualized upper airway is normal in position. BONY ELEMENTS: Bony elements are unchanged. RAD/Chest 1 View (Portable) IMPRESSION: 1. Interval placement of a RIGHT pleural pigtail catheter. Persistent RIGHT apical and RIGHT basilar pneumothorax. 2. Persistent although significantly improved atelectasis versus infiltrate at the LEFT lung base, persistent RIGHT effusion. 3. Atelectasis at the LEFT base. Electronically Signed: Femi Ham MD at 0:10 EST ,
[2022-10-25] VITALS (15 sets, daily range): BP systolic 101–145; BP diastolic 57–89; PULSE 41–70; RESP 14–22; TEMP 36.3–36.7; O2SAT 92–96; BMI 17.7
--- NOTE | 2022-10-25 03:18 | PCM.HP.STD ---
HPI - General General Date of Admission: 10/25/22 Date of Service: 10/25/22 Chief Complaint: Somnolence HPI Narrative LUNA MENDOZA, is a 81 M who presents to the emergency department with somnolence that started a day before presentation. Also patient has been coughing for the past 2 to 3 days. His cough is non productive but raspy. Further, the patient has not been eating. Of note patient fell in September and was hospitalized from October 09 2022 to October [facility] at [facility]. He was noticed to have broken ribs. He spent about 5 days at the hospital and was discharged to [facility] where he is presenting from at this time. On this presentation imaging showed apical pneumothorax and pleural effusion and for which a chest tube was placed at the emergency department with drainage of blood. Reportedly patient had chunks of food in his mouth when he came to the ED and that was removed by patient's nurse at the ED. [facility] Medical History Alzheimer disease CHF (congestive heart failure) Fall at home HTN (hypertension) Hypoxia Home Medications azelastine 137 mcg (0.1 %) nasal spray aerosol 2 spray intranasal BID 10/21/21 [History Last Taken Unknown] magnesium 500 mg tablet 500 mg PO BID 10/21/21 [History Last Taken Unknown] aspirin 81 mg chewable tablet 81 mg PO DAILY 30 days #30 tabs 10/14/22 [Rx Last Taken Unknown] atenolol 50 mg tablet 25 mg PO BID 30 days #30 tabs 10/14/22 [Rx Last Taken Unknown] budesonide 0.5 mg/2 mL suspension for nebulization 0.5 mg (2 mL) inhalation BID 30 days #120 mL 10/14/22 [Rx Last Taken Unknown] cholecalciferol (vitamin D3) 25 mcg (1,000 unit) chewable tablet 1,000 unit PO DAILY 30 days #30 tabs 10/14/22 [Rx Last Taken Unknown] hydralazine 25 mg tablet 50 mg PO BID 30 days #120 tabs 10/14/22 [Rx Last Taken Unknown] ipratropium 0.5 mg-albuterol 3 mg (2.5 mg base)/3 mL nebulization soln 3 ml inhalation QHS PRN shortness of breath 30 days #90 mL 10/14/22 [Rx Last Taken Unknown] lidocaine 5 % topical patch 2 patch topical DAILY 14 days #28 ea 10/14/22 [Rx Last Taken Unknown] memantine 10 mg tablet 10 mg PO BID 30 days #60 tabs 10/14/22 [Rx Last Taken Unknown] rivastigmine 13.3 mg/24 hour transdermal patch (Exelon Patch) 13.3 mg transdermal DAILY 30 days #30 ea 10/14/22 [Rx Last Taken Unknown] simvastatin 40 mg tablet 40 mg PO QHS 30 days #30 tabs 10/14/22 [Rx Last Taken Unknown] Allergy/AdvReac Type Severity Reaction Status Date / Time No Known Allergies Allergy Verified 10/24/22 21:49 Family History Other Alzheimer's dementia Surgical History no surgical history no surgical history Social History household members: spouse housing: half-way Smoking Status: Current some day smoker tobacco type: cigarettes substance use type: does not use ROS Review of Systems ROS Unobtainable: due to mental condition Vital Signs Vital Signs Vital Signs: 10/24/22 21:46 10/24/22 21:50 10/24/22 22:03 Temperature 98.1 F Temperature Source Axillary Pulse Rate 66 Respiratory Rate 15 Respiratory Effort Respiratory Pattern Blood Pressure 123/99 H Blood Pressure Mean 107 Pulse Ox 83 91 89 Oxygen Delivery Method Room Air Nasal Cannula Room Air Oxygen Flow Rate (L/min) 3 10/24/22 22:42 10/24/22 23:26 10/24/22 22:21 Temperature 97.5 F L Temperature Source Temporal Pulse Rate 58 L 67 Respiratory Rate 18 16 Respiratory Effort Short of Breath Labored Respiratory Pattern Normal Blood Pressure 129/73 H Blood Pressure Mean 91 Pulse Ox 92 Oxygen Delivery Method Nasal Cannula Oxygen Flow Rate (L/min) 5 10/25/22 00:12 10/25/22 02:00 Temperature 97.4 F L 97.8 F Temperature Source Temporal Temporal Pulse Rate 56 L 49 L Respiratory Rate 16 14 Respiratory Effort Respiratory Pattern Blood Pressure 101/71 119/67 Blood Pressure Mean 81 84 Pulse Ox 93 93 Oxygen Delivery Method Nasal Cannula Nasal Cannula Oxygen Flow Rate (L/min) 5 5 Weight Weight: 57.8 kg Body Mass Index (BMI) 19.9 Physical Exam Narrative Physical exam: General: Thin frame elderly male. Head: Normocephalic, atraumatic, no tenderness Eyes: Miotic pupil. Patient do not allow his eyes to be fully open and for physical examination. ENT, no trauma, dry mucous membranes, no rhinorrhea Neck: Nontender, No thyromegaly. CVS: Bradycardia. S1-S2 present. No murmur, gallop or rub. Respiratory : Chest tube in the right upper chest. Mild rhonchi. Chest wall nontender, no wheezing Abdomen: Soft, nontender, nondistended, normal bowel sounds, no masses : Khan catheter in place (placed at the ED) Back: Nontender, no CVA tenderness, no midline spinal tenderness, deformities, step-offs Extremities: Nontender full range of motion, no trauma Skin: Normal color, no trauma, abrasions Neuro: Stuporous. Response to pain. Psychiatry: Stuporous Results Lab / Micro Data Attestation: I reviewed the patient's lab results. Result Diagrams: 10/25/22 05:30 10/25/22 05:30 Labs: Laboratory Results - last 24 hr 10/24/22 22:00: WBC 12.0 H, RBC 3.43 L, Hgb 10.6 L, Hct 32.2 L, MCV 93.9, MCH 30.9, MCHC 32.9, RDW Std Deviation 53.1 H, RDW Coeff of Bola 15.6 H, Plt Count 280, MPV 11.0, Immature Gran % (Auto) 0.300, Neut % (Auto) 89.5 H, Lymph % (Auto) 5.4 L, Summers % (Auto) 4.6, Eos % (Auto) 0.0, Baso % (Auto) 0.2, Absolute Neuts (auto) 10.7 H, Absolute Lymphs (auto) 0.65 L, Nucleated RBC % 0, Platelet Estimate ADEQUATE, RBC Morphology N CHROM, Anisocytosis RARE, Macrocytosis RARE 10/24/22 22:00: Sodium 143, Potassium 4.0, Chloride 111 H, Carbon Dioxide 28.0, Anion Gap 4 L, BUN 40 H, Creatinine 1.32 H, Estim Creat Clear Calc 37.10, Est GFR (MDRD) Af Amer 67, Est GFR (MDRD) Non-Af 56 L, BUN/Creatinine Ratio 30.3 H, Glucose 139 H, Calcium 10.6 H, Total Bilirubin 0.90, AST 27, ALT 32, Alkaline Phosphatase 66, Total Protein 6.9, Albumin 2.9 L, Globulin 4.0, Albumin/Globulin Ratio 0.7 L 10/24/22 22:00: Lactic Acid 1.6 10/24/22 22:30: Urine Color Yellow, Urine Clarity Clear, Urine pH 6.0, Ur Specific [place] 1.015, Urine Protein 15 H, Urine Glucose (UA) Normal, Urine Ketones Negative, Urine Occult Blood Negative, Urine Nitrite Negative, Urine Bilirubin Negative, Urine Urobilinogen Normal, Ur Leukocyte Esterase Negative, Urine RBC 0 SEEN, Urine WBC 0 SEEN, Ur Squamous Epith Cells 0 SEEN, Urine Bacteria RARE, Urine Mucus 0 SEEN ABG Data ABG results: ABG 10/24/22 22:14 Specimen Type ART Sample Site R Radial pH 7.58 H Bicarbonate Actual 24.0 Total CO2 25 Base Excess 2 O2 Saturation 90 L ABG pCO2 25.4 L ABG pO2 48 L Brayden Test Positive O2 Delivery Device Cannula Liter Flow 4.[address] 10/24/22 22:03 IMPRESSION: 1. Diffuse involutional change, chronic microvascular deep white matter disease and area of suspected remote lacunar infarct along the medial aspect of the RIGHT frontal lobe. 2. No intracranial evidence of acute traumatic injury. Electronically Signed: Femi Ham MD at 0:08 EST , Chest X-Ray 10/24/22 22:12 IMPRESSION: 1. RIGHT basilar airspace consolidation, RIGHT effusion and findings consistent with a RIGHT apical and RIGHT basilar pneumothorax without mediastinal shift. 2. Displaced RIGHT lower rib fractures. 3. Worsening atelectasis at the LEFT lung base. 4. No congestive failure. [facility] (nonstandard communication) notification was initiated at 9:25 PM [employer]OOK [employer] Electronically Signed: Femi Ham MD at 22:26 EST , ADDENDUM: 10/24/22 2238 IMPRESSION: 1. RIGHT basilar airspace consolidation, RIGHT effusion and findings consistent with a RIGHT apical and RIGHT basilar pneumothorax without mediastinal shift. 2. Displaced RIGHT lower rib fractures. 3. Worsening atelectasis at the LEFT lung base. 4. No congestive failure. [facility] (nonstandard communication) notification was initiated at 9:25 PM COOK [employer]IP N.B. : The above Results were Read Back by Femi Ham MD to Cong Last MD, and understanding confirmed on 10/24/2022 22:31:26 (ET). Electronically Signed: Femi Ham MD at 22:26 EST , Chest X-Ray 10/24/22 23:40 IMPRESSION: 1. Interval placement of a RIGHT pleural pigtail catheter. Persistent RIGHT apical and RIGHT basilar pneumothorax. 2. Persistent although significantly improved atelectasis versus infiltrate at the LEFT lung base, persistent RIGHT effusion. 3. Atelectasis at the LEFT base. Electronically Signed: Femi Ham MD at 0:10 EST , Assessment & Plan Assessment/Plan (1) Hemopneumothorax on right: (2) Aspiration pneumonia due to vomit: PLAN: Plan Aspiration pneumonia due to vomitting Vancomycin and Zosyn started emergency department. Unasyn ordered. Strep pneumoniae and Legionella urine antigen ordered. White count of 12 on presentation. Trend. Hemopneumothorax Impression chest x-ray by radiologist: 1.? RIGHT basilar airspace consolidation, RIGHT effusion and findings consistent with a RIGHT apical and RIGHT basilar pneumothorax without mediastinal shift. 2.? Displaced RIGHT lower rib fractures. 3.? Worsening atelectasis at the LEFT lung base. 4.? No congestive failure. Chest x-ray was visualized and independently interpreted and I agree with radiologist interpretation. Chest tube placed at the ED. ED doctor discussed the case with agri business agent Dr. Verdin. Pulmonary consulted. Acute metabolic encephalopathy/uremia/RODRIGO/hyponatremia/hypochloremia BUN of 40. Creatinine of 1.32. Baseline creatinine around 1. Sodium of 147 with chloride of 114. Gentle IV hydration. Trend BMP. Keep n.p.o. secondary to encephalopathy. Head CT with no acute injury. DVT prophylaxis: SCDs ordered Charges/Coding Visit Charges Inpatient E&M: 21942 Init Hosp L3
[2022-10-25] MEDS: 0.9% Saline Lock 10 ML Syringe IV ×2 (05:09→22:30)
--- NOTE | 2022-10-25 05:21 | NURSING ---
Unable to complete PMH and admission questions due to pt level of consciousness. Nando GIFFORD
[2022-10-25 05:41] LABS: Absolute Lymphocyte Count 1.07 X10^3/uL (0.83-4.51); Absolute Neutrophil Count 10.7 X10^3/uL (2.0-7.7); Basophil# 0.06 X10^3/uL; Basophil% 0.5 % (0-1); Eosinophil# 0.04 X10^3/uL; Eosinophils% 0.3 % (0-5); Hematocrit 35.8 % (40-54); Hemoglobin 11.5 g/dL (13.0-16.5); Lymphocyte # 1.07 X10^3/ul (0.83-4.51); Lymphocyte % 8.5 % (19-41); Mean Corp Hgb Conc 32.1 g/dL (32-36); Mean Corpuscular Hgb 30.7 pg (27.0-32.0); Mean Corpuscular Volume 95.7 fL (80-94); Mean Platelet Vol. 10.5 fl (6.2-12.0); Monocyte# 0.68 X10^3/uL; Monocyte% 5.4 % (0-10); NRBC Flagged by Analyzer 0 % (0-5); Neutrophil # 10.65 X10^3/uL (2.7-7.7); Neutrophil % 84.9 % (47-70); Platelet Count 240 K/mm3 (150-450); RBC Distribution Width SD 56.4 fl (35.1-43.9); Red Blood Count 3.74 M/mm3 (4.6-6.2); White Blood Count 12.6 K/mm3 (4.4-11.0)
[2022-10-25 06:19] LABS: Anion Gap 11 (5-15); BUN 37 mg/dL (7-18); BUN/Creat Ratio 29.6 RATIO (10-20); Calcium,Total 9.9 mg/dL (8.5-10.1); Chloride 114 mmol/L (98-107); Creatinine, Serum 1.25 mg/dL (0.70-1.30); EST Glomerular Filtration Rate 59 mL/min (>60); Est Glom Filt Rate - Afr Amer 72 mL/min (>60); Estimated Creatinine Clearance 34.84 ml/min; Glucose 113 mg/dL (74-106); Magnesium 2.6 mg/dL (1.6-2.6); Potassium 3.9 mmol/L (3.5-5.1); Sodium Level 147 mmol/L (136-145)
[2022-10-25] MEDS: Budesonide Respules 0.5 MG/2 ML AMPUL.NEB. INHALATION ×2 (07:07→20:40)
[2022-10-25] MEDS: 0.9% Normal Saline 1,000 ML 75 ML IV ×2 (07:34→21:17)
[2022-10-25] MEDS: Azelastine HCl NASAL.SRY 2 SPRAY NASAL ×2 (10:12→22:27)
[2022-10-25] MEDS: Lidocaine 5% Patch 2 PATCH TOPICAL (10:15)
--- NOTE | 2022-10-25 10:33 | EX.PCM.CONCC ---
Assessment & Plan Assessment/Plan (1) Hemopneumothorax on right: (2) Multiple fractures of ribs of right side: (3) Acute encephalopathy: PLAN: Plan RECOMMENDATIONS: 1. Place chest tube to wall suction 2. Obtain chest x-ray at noon 3. Clarify goals of therapy 4. Aggressive pain control 5. Encourage incentive spirometer if possible 6. Consider dietitian consult 7. Continue empiric antibiotics pending cultures IMPRESSIONS: 1. Acute traumatic hydropneumothorax on the right secondary to rib fractures Unclear if patient has an element of aspiration pneumonia in addition to a hydropneumothorax. Chest tube has been placed. This will be placed to wall suction at 20. Obtain chest x-ray in 1 to 2 hours to see if there is resolution. Anticipate 48 to 72 hours of wall suction prior to waterseal. Could consider sending fluid for studies, but empiric antibiotics will be continued. High clinical suspicion for exudate. Patient does not appear to have obstruction secondary to clotting at this time. May require intermittent flushes. Arrange for daily chest x-rays until chest tube is removed. Did discuss plan with hospitalist. No transfer to the intensive care unit at this time. 2. Acute metabolic encephalopathy/dementia/debility/protein malnutrition/advanced age Complicates care, management, recovery and prognosis. Patient does have a diagnosis of Alzheimer's dementia at baseline, but is not interacting at this time. Patient with significant debility. Will likely need to be evaluated by therapies and dietitian. Poor long-term prognosis in my opinion. Consider reevaluation of goals of therapy. HPI Consult Data Date of Consult: 10/25/22 HPI Narrative Reason for Consultation: Chest tube HPI Narrative: LUNA MENDOZA is a 81 M, with past medical history listed below, who presents to [facility] on 10/24/2022 secondary to change in mental status. Patient was noted to be hypoxic with raspy respirations at a nursing facility. Patient is a DNR [employer] arrest and suffers from Alzheimer's dementia, so was not able to provide much additional information. Per documentation, patient is on 2 L nasal cannula at baseline. Patient reportedly had a fall that resulted into right rib fractures. In the ER, patient was afebrile, but saturating 83% on room air. Patient was normotensive with a heart rate of 66 and a peak respiratory rate of 18. Laboratory work-up showed a white blood cell count of 12, hemoglobin of 10.6 and platelets of 280. Chemistry showed an elevated bicarbonate of 28, creatinine of 1.32 and a glucose of 139. LFTs were relatively unremarkable, along with lactic acid and UA. A VBG showed alkalosis with a pH of 7.58. CT brain showed chronic involutional disease with a remote lacunar infarct in the medial aspect of the right frontal lobe, but no bleed. Chest x-ray showed right airspace consolidation with displaced rib fractures. Given large pneumothorax, patient had a right pigtail catheter placed showing persistent atelectasis and effusion. Patient was admitted to the floor for further evaluation. No family was at the bedside during my evaluation. Unable to get more information. Patient's chest tube was on waterseal and the patient was requiring 5 L nasal cannula. Patient reportedly had had a recent large amount of pleural fluid removed with change in body position. [facility] Medical History Alzheimer disease CHF (congestive heart failure) Fall at home HTN (hypertension) Hypoxia Home Medications azelastine 137 mcg (0.1 %) nasal spray aerosol 2 spray intranasal BID 10/21/21 [History Last Taken Unknown] magnesium 500 mg tablet 500 mg PO BID 10/21/21 [History Last Taken Unknown] aspirin 81 mg chewable tablet 81 mg PO DAILY 30 days #30 tabs 10/14/22 [Rx Last Taken Unknown] atenolol 50 mg tablet 25 mg PO BID 30 days #30 tabs 10/14/22 [Rx Last Taken Unknown] budesonide 0.5 mg/2 mL suspension for nebulization 0.5 mg (2 mL) inhalation BID 30 days #120 mL 10/14/22 [Rx Last Taken Unknown] cholecalciferol (vitamin D3) 25 mcg (1,000 unit) chewable tablet 1,000 unit PO DAILY 30 days #30 tabs 10/14/22 [Rx Last Taken Unknown] hydralazine 25 mg tablet 50 mg PO BID 30 days #120 tabs 10/14/22 [Rx Last Taken Unknown] ipratropium 0.5 mg-albuterol 3 mg (2.5 mg base)/3 mL nebulization soln 3 ml inhalation QHS PRN shortness of breath 30 days #90 mL 12/27/22 [Rx Last Taken Unknown] lidocaine 5 % topical patch 2 patch topical DAILY 14 days #28 ea 10/14/22 [Rx Last Taken Unknown] memantine 10 mg tablet 10 mg PO BID 30 days #60 tabs 10/14/22 [Rx Last Taken Unknown] rivastigmine 13.3 mg/24 hour transdermal patch (Exelon Patch) 13.3 mg transdermal DAILY 30 days #30 ea 10/14/22 [Rx Last Taken Unknown] simvastatin 40 mg tablet 40 mg PO QHS 30 days #30 tabs 10/14/22 [Rx Last Taken Unknown] Allergy/AdvReac Type Severity Reaction Status Date / Time No Known Allergies Allergy Verified 10/24/22 21:49 Family History Other Alzheimer's dementia Surgical History no surgical history Social History household members: spouse housing: [facility] Smoking Status: Current some day smoker tobacco type: cigarettes substance use type: does not use ROS Review of Systems ROS Unobtainable: due to mental status Physical Exam Const General Appearance: lethargic and frail HEENT normocephalic HEENT Narrative: Temporal wasting. Dry mucous membranes Eyes PERRL, EOMs intact bilaterally and conjunctivae normal Neck full ROM Chest Chest: chest tube right Resp Resp Narrative: Shallow respirations, but no accessory muscle use Auscultation: rales right; Negative for rhonchi or wheezes Percussion: dullness Lower: right Cardio regular rhythm, S1 normal heart sound, S2 normal heart sound, no rub and no gallops Rate: bradycardia Heart Sounds: murmur systolic II/ harsh early right sternal border GI GI Narrative: Scaphoid abdomen Extremity no clubbing, cyanosis or edema Skin Skin Narrative: Areas of bruising noted Neuro Neuro Narrative: Some movement of all extremities Psych Mood & Affect: flat affect Lab / Micro Data Attestation: I reviewed the patient's lab results. Result Diagrams: 10/25/22 05:30 10/25/22 05:30 Labs: Laboratory Results - last 24 hr 10/24/22 22:00: WBC 12.0 H, RBC 3.43 L, Hgb 10.6 L, Hct 32.2 L, MCV 93.9, MCH 30.9, MCHC 32.9, RDW Std Deviation 53.1 H, RDW Coeff of Bola 15.6 H, Plt Count 280, MPV 11.0, Immature Gran % (Auto) 0.300, Neut % (Auto) 89.5 H, Lymph % (Auto) 5.4 L, [place]rell % (Auto) 4.6, Eos % (Auto) 0.0, Baso % (Auto) 0.2, Absolute Neuts (auto) 10.7 H, Absolute Lymphs (auto) 0.65 L, Nucleated RBC % 0, Platelet Estimate ADEQUATE, RBC Morphology N CHROM, Anisocytosis RARE, Macrocytosis RARE 10/24/22 22:00: Sodium 143, Potassium 4.0, Chloride 111 H, Carbon Dioxide 28.0, Anion Gap 4 L, BUN 40 H, Creatinine 1.32 H, Estim Creat Clear Calc 37.10, Est GFR (MDRD) Af Amer 67, Est GFR (MDRD) Non-Af 56 L, BUN/Creatinine Ratio 30.3 H, Glucose 139 H, Calcium 10.6 H, Total Bilirubin 0.90, AST 27, ALT 32, Alkaline Phosphatase 66, Total Protein 6.9, Albumin 2.9 L, Globulin 4.0, Albumin/Globulin Ratio 0.7 L 10/24/22 22:00: Lactic Acid 1.6 10/24/22 22:30: Urine Color Yellow, Urine Clarity Clear, Urine pH 6.0, Ur Specific [place] 1.015, Urine Protein 15 H, Urine Glucose (UA) Normal, Urine Ketones Negative, Urine Occult Blood Negative, Urine Nitrite Negative, Urine Bilirubin Negative, Urine Urobilinogen Normal, Ur Leukocyte Esterase Negative, Urine RBC 0 SEEN, Urine WBC 0 SEEN, Ur Squamous Epith Cells 0 SEEN, Urine Bacteria RARE, Urine Mucus 0 SEEN 10/25/22 05:30: WBC 12.6 H, RBC 3.74 L, Hgb 11.5 L, Hct 35.8 L, MCV 95.7 H, MCH 30.7, MCHC 32.1, RDW Std Deviation 56.4 H, RDW Coeff of Bola 16.0 H, Plt Count 240, MPV 10.5, Immature Gran % (Auto) 0.400, Neut % (Auto) 84.9 H, Lymph % (Auto) 8.5 L, Terrell % (Auto) 5.4, Eos % (Auto) 0.3, Baso % (Auto) 0.5, Absolute Neuts (auto) 10.7 H, Absolute Lymphs (auto) 1.07, Nucleated RBC % 0 10/25/22 05:30: Sodium 147 H, Potassium 3.9, Chloride 114 H, Carbon Dioxide 22.0, Anion Gap 11, BUN 37 H, Creatinine 1.25, Estim Creat Clear Calc 34.84, Est GFR (MDRD) Af Amer 72, Est GFR (MDRD) Non-Af 59 L, BUN/Creatinine Ratio 29.6 H, Glucose 113 H, Calcium 9.9, Magnesium 2.6 Micro: Microbiology 10/25/22 03:19 Urine Catheter - Khan Legionella Antigen - Final 10/25/22 03:19 Urine Catheter - Khan Streptococcus pneumoniae Antigen (M - Final ABG Data ABG results: ABG 10/24/22 22:14 Specimen Type ART Sample Site R Radial pH 7.58 H Bicarbonate Actual 24.0 Total CO2 25 Base Excess 2 O2 Saturation 90 L ABG pCO2 25.4 L ABG pO2 48 L Brayden Test Positive O2 Delivery Device Cannula Liter Flow 4.[address] 10/24/22 22:03 IMPRESSION: 1. Diffuse involutional change, chronic microvascular deep white matter disease and area of suspected remote lacunar infarct along the medial aspect of the RIGHT frontal lobe. 2. No intracranial evidence of acute traumatic injury. Electronically Signed: Femi Ham MD at 0:08 EST , Chest X-Ray 10/24/22 22:12 IMPRESSION: 1. RIGHT basilar airspace consolidation, RIGHT effusion and findings consistent with a RIGHT apical and RIGHT basilar pneumothorax without mediastinal shift. 2. Displaced RIGHT lower rib fractures. 3. Worsening atelectasis at the LEFT lung base. 4. No congestive failure. [facility] (nonstandard communication) notification was initiated at 9:25 PM [employer] SOFTWARE DEVELOPER Electronically Signed: Femi Ham MD at 22:26 EST , ADDENDUM: 10/24/22 2238 IMPRESSION: 1. RIGHT basilar airspace consolidation, RIGHT effusion and findings consistent with a RIGHT apical and RIGHT basilar pneumothorax without mediastinal shift. 2. Displaced RIGHT lower rib fractures. 3. Worsening atelectasis at the LEFT lung base. 4. No congestive failure. [facility] (nonstandard communication) notification was initiated at 9:25 PM JAVA SOFTWARE DEVELOPER N.B. : The above Results were Read Back by Femi Ham MD to Cong Last MD, and understanding confirmed on 10/24/2022 22:31:26 (ET). Electronically Signed: Femi Ham MD at 22:26 EST , Chest X-Ray 10/24/22 23:40 IMPRESSION: 1. Interval placement of a RIGHT pleural pigtail catheter. Persistent RIGHT apical and RIGHT basilar pneumothorax. 2. Persistent although significantly improved atelectasis versus infiltrate at the LEFT lung base, persistent RIGHT effusion. 3. Atelectasis at the LEFT base. Electronically Signed: Femi Ham MD at 0:10 EST , Charges/Coding Visit Charges Inpatient E&M: 36655 Init Hosp L3
--- NOTE | 2022-10-25 11:36 | CASEMGMT ---
Social Work Pt is here from [place], pt went there skilled in September. It is anticipated pt will be here through the weekend. SW called to inquire if she would like pt to return to [facility]. Message left. JOHNIE sent updates to [facility] via [employer] and asked Julia at [facility] to follow up w/SW Thursday to confirm they can take pt back. JOHNIE will continue to follow. STANLEY Blum
--- NOTE | 2022-10-25 11:55 | RAD_ITS ---
STUDY: X-RAY CHEST REASON FOR EXAM: Male, 81 years old. Evaluate hydropneumothorax TECHNIQUE: radiograph of the chest COMPARISON: October 24, 2022 FINDINGS: There is right anterior approach upper chest drain. There is probably minimal residual 2 mm pneumothorax. Left lung is inflated. There are coarse bilateral interstitial opacities, worse in the bases due to atelectasis. Lungs are emphysematous. There are no moderate or large pleural effusions. Heart size is normal for technique. The skeleton is osteoporotic. RAD/Chest 1 View (Portable) IMPRESSION: Diminishing, nearly resolved right pneumothorax. Emphysema, scars, possibility of viral pneumonia is present. Osteoporosis. Electronically Signed: Sage Akers MD at 12:17 EST ,
[2022-10-26] VITALS (9 sets, daily range): BP systolic 131–176; BP diastolic 76–102; PULSE 61–70; RESP 18–22; TEMP 36.6–36.9; O2SAT 94–96
--- NOTE | 2022-10-26 04:35 | RAD_ITS ---
EXAM: XR CHEST, 1 VIEW CLINICAL INDICATION: Chest tube TECHNIQUE: Frontal view of the chest. This report was created using Pinocular report generation technology. COMPARISON: XR Chest dated 10/25/2022 FINDINGS: LUNGS AND PLEURAL SPACES: Persistent 10% right apical pneumothorax. Persistent bibasilar pulmonary opacities which may be related to pneumonia and/or atelectasis. No effusion. HEART: Normal heart size. MEDIASTINUM: No mediastinal or hilar mass. BONES/JOINTS: Moderate dextroscoliosis of the thoracic spine. SOFT TISSUES: Normal. TUBES, LINES AND DEVICES: Right chest tube remains in place. RAD/Chest 1 View (Portable) IMPRESSION: Stable 10% right apical pneumothorax. Persistent bibasilar pneumonia/atelectasis. Electronically Signed: Munir Farias MD at 9:34 EST ,
[2022-10-26] MEDS: Budesonide Respules 0.5 MG/2 ML AMPUL.NEB. INHALATION (06:55)
[2022-10-26 07:40] LABS: Absolute Lymphocyte Count 0.92 X10^3/uL (0.83-4.51); Absolute Neutrophil Count 9.1 X10^3/uL (2.0-7.7); Basophil# 0.05 X10^3/uL; Basophil% 0.5 % (0-1); Eosinophil# 0.31 X10^3/uL; Eosinophils% 2.8 % (0-5); Hematocrit 34.3 % (40-54); Hemoglobin 11.1 g/dL (13.0-16.5); Lymphocyte # 0.92 X10^3/ul (0.83-4.51); Lymphocyte % 8.4 % (19-41); Mean Corp Hgb Conc 32.4 g/dL (32-36); Mean Corpuscular Hgb 30.9 pg (27.0-32.0); Mean Corpuscular Volume 95.5 fL (80-94); Mean Platelet Vol. 10.5 fl (6.2-12.0); Monocyte# 0.53 X10^3/uL; Monocyte% 4.8 % (0-10); NRBC Flagged by Analyzer 0 % (0-5); Neutrophil # 9.12 X10^3/uL (2.7-7.7); Platelet Count 294 K/mm3 (150-450); RBC Distribution Width CV 15.8 % (11.6-14.6); RBC Distribution Width SD 55.6 fl (35.1-43.9); Red Blood Count 3.59 M/mm3 (4.6-6.2)
--- NOTE | 2022-10-26 07:49 | PN.HOSP_ITS ---
Subjective Subjective Follow-up on acute encephalopathy/hypoxia/pneumothorax/rib fractures: Patient was seen and examined. He has been hyperactive and confused. Remains on 5 L of oxygen. Chest tube connected to use suction on the wall. Blood cultures have come back for staph epidermidis bacteremia, repeat cultures are pending. Urine Legionella and stroke antigens are negative. I had an extensive discussion with the and his son as well as [id number] at the bedside. His confirmed the patient's CODE STATUS was DNR CCA. That he would not want to be like this. She admits that patient has a diagnosis of dementia of the Alzheimer's type and has slowly been deteriorating. She is wanting to have hospice to evaluate. Objective Data Objective Data Vital Signs: Vital Signs Temp Pulse Resp BP Pulse Ox O2 Del Method O2 Flow Rate 98.3 F 63 18 167/76 H 94 Nasal Cannula 5 10/26/22 06:04 10/26/22 06:04 10/26/22 06:04 10/26/22 06:04 10/26/22 06:04 10/26/22 06:56 10/26/22 06:56 Oxygen Flow Rate (L/min) 5 Oxygen Delivery Method Nasal Cannula Weight: 51.4 kg Body Mass Index (BMI) 17.7 Intake & Output: Intake and Output for Last 24 Hours 10/24/22 10/25/22 10/26/22 23:59 23:59 23:59 Intake Total 100 / 100 1771.00 / 1771.00 224 / 224 Output Total 1350 / 1350 400 / 400 Balance 100 / 100 421.00 / 421.00 -176 / -176 Medical Nutrition Assessment Dietitian: Malnutrition Criteria Met Start: 10/25/22 13:57 Freq: Status: Active Protocol: Document 10/25/22 13:57 KAREN (Rec: 10/25/22 13:57 KAREN [id number]) Nutrition Malnutrition Evidence of Malnutrition Exists Yes Malnutrition (severe): Acute Illness/Injury Evidenced By Suboptimal Energy Intake ( Severe),Weight Loss (Severe), Physical Changes (Moderate) Clinical Problem Acute Disease or Injury Related Malnutrition Etiology related to issues chewing/ swallowing, dementia and inability to consume adequate nutrition to meet est nutritional needs Signs/Symptoms as evidenced by 12.9% wt loss and po intake meeting <75% of est nutritional needs, BMI <18 , fat/muscle wasting in face, torso, upper/lower extrimities Status Active Problem Recommendation Dietitian Recommendations/Changes Rec liberal regular diet d/t signs/symptoms of malnutrition - consistency per MELANGEUR OPERATOR Rec 4 oz ensure plus high protein 4x/day w/ medpass when able to resume po diet Rec ensure pudding or magic cup w/ lunch and dinner when medically able to resume po diet Will consult MELANGEUR OPERATOR re: swallowing/possible aspiration PNA Lab / Micro Data Result Diagrams: 10/26/22 07:30 10/26/22 07:30 Labs: Laboratory Results - last 24 hr 10/26/22 07:30: WBC 11.0, RBC 3.59 L, Hgb 11.1 L, Hct 34.3 L, MCV 95.5 H, MCH 30.9, MCHC 32.4, RDW Std Deviation 55.6 H, RDW Coeff of Bola 15.8 H, Plt Count 294, MPV 10.5, Immature Gran % (Auto) 0.500, Neut % (Auto) 83.0 H, Lymph % (Auto) 8.4 L, [place] % (Auto) 4.8, Eos % (Auto) 2.8, Baso % (Auto) 0.5, Absolute Neuts (auto) 9.1 H, Absolute Lymphs (auto) 0.92, Nucleated RBC % 0 Micro: Microbiology 10/24/22 22:39 Blood Culture (Wb) - Venous Bacteria Detection (PCR) - Final Staphylococcus epidermidis 10/24/22 22:39 Blood Culture (Wb) - Venous Blood Culture - Preliminary 10/24/22 22:34 Blood Culture (Wb) - Anticubital Left Blood Culture - Preliminary 10/25/22 03:19 Urine Catheter - Khan Legionella Antigen - Final 10/25/22 03:19 Urine Catheter - Khan Streptococcus pneumoniae Antigen (M - Final Radiography Diagnostic Testing: Radiology Impression Chest X-Ray 10/25/22 11:55 IMPRESSION: Diminishing, nearly resolved right pneumothorax. Emphysema, scars, possibility of viral pneumonia is present. Osteoporosis. Electronically Signed: Sage Akers MD at 12:17 EST , Physical Exam Narrative General: Confused, appears to be in some discomfort, not oriented to person, place or time HEENT: Atraumatic, PERRLA, EOMI, Normocephalic Oral: Moist Mucosa Neck: Supple Lungs: Diminished, status post right side chest tube Cardiovascular: Regular rate, Regular Rhythm, Normal S1, Normal S2, No murmurs Abdomen: Bowel Sounds Present, Soft, Non Tender, Non-Distended, No Hepato- splenomegaly Extremities: No edema Skin: No rashes Neurological: Cranial nerves II-XII grossly intact, Neuro grossly intact Psych/Mental Status: Normal Affect, Appropriate Assessment & Plan Assessment/Plan (1) Hemopneumothorax on right: (2) Aspiration pneumonia due to vomit: PLAN: Plan 1. Acute hypoxia secondary to pneumothorax/aspiration pneumonia Patient remains on 5 L of oxygen Pulmonology following, continue to wean off for SPO2 more than 94% 2. Acute hemopneumothorax secondary to rib fractures, status post right chest tube placement Repeat chest x-ray today shows stable 10% right apical pneumothorax We will continue with chest tube 3. Staph epidermides/coag negative bacteremia, continue on Unasyn 4. Severe dysphagia secondary to hypoactive delirium/aspiration pneumonia, Speech therapy following, kept n.p.o., continue on Unasyn 5. Acute hypoactive delirium in a patient with dementia, patient is hospice eligible after discussion with family Would continue on scheduled rectal Tylenol, controlled with morphine as needed 6. Hypercalcemia, persistent, continue IV fluids 7. Hyponatremia secondary to dehydration, sodium is 150 Will start on D5 water 8. Severe protein calorie malnutrition, patient is unable to eat, hospice eligible 9. Dementia, Alzheimer's, end-stage, hospice eligible 10. DVT prophylaxis -SCDs Charges/Coding Visit Charges Inpatient E&M: 56485 Subs Hosp L2
[2022-10-26 07:51] LABS: Anion Gap 8 (5-15); BUN 34 mg/dL (7-18); BUN/Creat Ratio 28.3 RATIO (10-20); Calcium,Total 10.4 mg/dL (8.5-10.1); Chloride 116 mmol/L (98-107); EST Glomerular Filtration Rate 62 mL/min (>60); Est Glom Filt Rate - Afr Amer 75 mL/min (>60); Estimated Creatinine Clearance 36.29 ml/min; Glucose 95 mg/dL (74-106); Potassium 3.5 mmol/L (3.5-5.1); Sodium Level 150 mmol/L (136-145)
[2022-10-26] MEDS: Azelastine HCl NASAL.SRY 2 SPRAY NASAL ×2 (07:54→20:46)
[2022-10-26] MEDS: Lidocaine 5% Patch 2 PATCH TOPICAL (07:55)
--- NOTE | 2022-10-26 10:06 | PN.CC_ITS ---
Assessment & Plan Assessment/Plan (1) Hemopneumothorax on right: (2) Multiple fractures of ribs of right side: (3) Acute encephalopathy: PLAN: Plan RECOMMENDATIONS: 1. Continue wall suction to chest tube 2. Repeat blood cultures. Obtain echocardiogram 3. Clarify goals of therapy 4. Aggressive pain control 5. Encourage incentive spirometer if possible 6. Consider dietitian consult 7. Continue empiric antibiotics pending repeat cultures IMPRESSIONS: 1. Acute traumatic hydropneumothorax on the right secondary to rib fractures Unclear if patient has an element of aspiration pneumonia in addition to a hydropneumothorax. Chest tube has been placed. Good response to application of suction. Anticipate 48 to 72 hours of wall suction prior to waterseal. Could consider sending fluid for studies, but empiric antibiotics will be continued. Blood cultures are growing coag negative staph. Unclear if this is a contaminant given all blood cultures are positive. Repeat cultures have been ordered. Patient does not appear to have obstruction secondary to clotting at this time. May require intermittent flushes of chest tube. Arrange for daily chest x-rays until chest tube is removed. Did discuss plan with hospitalist. No transfer to the intensive care unit at this time. 2. Acute metabolic encephalopathy/dementia/debility/protein malnutrition/advanced age Complicates care, management, recovery and prognosis. Patient does have a diagnosis of Alzheimer's dementia at baseline, but is not interacting at this time. Patient with significant debility. Will likely need to be evaluated by therapies and dietitian. Poor long-term prognosis in my opinion. Consider ree valuation of goals of therapy. Subjective Subjective Patient did okay overnight. Nursing with no concerns this morning. Patient denies pain, but not able to provide much additional information. Objective Data Objective Data Vital Signs: Vital Signs Temp Pulse Resp BP Pulse Ox O2 Del Method O2 Flow Rate 36.8 C 61 20 H 167/76 H 95 Nasal Cannula 5 10/26/22 06:04 10/26/22 08:23 10/26/22 08:25 10/26/22 06:04 10/26/22 08:25 10/26/22 08:25 10/26/22 08:25 Oxygen Flow Rate (L/min) 5 Oxygen Delivery Method Nasal Cannula Weight: 51.4 kg Body Mass Index (BMI) 17.7 Intake & Output: Intake and Output for Last 24 Hours 10/24/22 10/25/22 10/26/22 23:59 23:59 23:59 Intake Total 100 / 100 1771.00 / 1771.00 1021.5 / 1021.5 Output Total 1350 / 1350 400 / 400 Balance 100 / 100 421.00 / 421.00 621.5 / 621.5 Medical Nutrition Assessment Dietitian: Malnutrition Criteria Met Start: 10/25/22 13:57 Freq: Status: Active Protocol: Document 10/25/22 13:57 SLA (Rec: 10/25/22 13:57 [facility] [id number]) Nutrition Malnutrition Evidence of Malnutrition Exists Yes Malnutrition (severe): Acute Illness/Injury Evidenced By Suboptimal Energy Intake ( Severe),Weight Loss (Severe), Physical Changes (Moderate) Clinical Problem Acute Disease or Injury Related Malnutrition Etiology related to issues chewing/ swallowing, dementia and inability to consume adequate nutrition to meet est nutritional needs Signs/Symptoms as evidenced by 12.9% wt loss and po intake meeting <75% of est nutritional needs, BMI <18 , fat/muscle wasting in face, torso, upper/lower extrimities Status Active Problem Recommendation Dietitian Recommendations/Changes Rec liberal regular diet d/t signs/symptoms of malnutrition - consistency per DIRECTOR DIGITAL CATALOGUE Rec 4 oz ensure plus high protein 4x/day w/ medpass when able to resume po diet Rec ensure pudding or magic cup w/ lunch and dinner when medically able to resume po diet Will consult DIRECTOR DIGITAL CATALOGUE re: swallowing/possible aspiration PNA Lab / Micro Data Attestation: I reviewed the patient's lab results. Result Diagrams: 10/26/22 07:30 10/26/22 07:30 Labs: Laboratory Results - last 24 hr 10/26/22 07:30: WBC 11.0, RBC 3.59 L, Hgb 11.1 L, Hct 34.3 L, MCV 95.5 H, MCH 30.9, MCHC 32.4, RDW Std Deviation 55.6 H, RDW Coeff of Bola 15.8 H, Plt Count 294, MPV 10.5, Immature Gran % (Auto) 0.500, Neut % (Auto) 83.0 H, Lymph % (Auto) 8.4 L, [place] % (Auto) 4.8, Eos % (Auto) 2.8, Baso % (Auto) 0.5, Absolute Neuts (auto) 9.1 H, Absolute Lymphs (auto) 0.92, Nucleated RBC % 0 10/26/22 07:30: Sodium 150 H, Potassium 3.5, Chloride 116 H, Carbon Dioxide 26.0, Anion Gap 8, BUN 34 H, Creatinine 1.20, Estim Creat Clear Calc 36.29, Est GFR (MDRD) Af Amer 75, Est GFR (MDRD) Non-Af 62, BUN/Creatinine Ratio 28.3 H, Glucose 95, Calcium 10.4 H Micro: Microbiology 10/24/22 22:34 Blood Culture (Wb) - Anticubital Left Blood Culture - Preliminary Coag Negative Staph 10/24/22 22:39 Blood Culture (Wb) - Venous Bacteria Detection (PCR) - Final Staphylococcus epidermidis 10/24/22 22:39 Blood Culture (Wb) - Venous Blood Culture - Preliminary Coag Negative Staph 10/25/22 03:19 Urine Catheter - Khan Legionella Antigen - Final 10/25/22 03:19 Urine Catheter - Khan Streptococcus pneumoniae Antigen (M - Final Radiography Diagnostic Testing: Radiology Impression Chest X-Ray 10/25/22 11:55 IMPRESSION: Diminishing, nearly resolved right pneumothorax. Emphysema, scars, possibility of viral pneumonia is present. Osteoporosis. Electronically Signed: Sage Akers MD at 12:17 EST , Chest X-Ray 10/26/22 04:35 IMPRESSION: Stable 10% right apical pneumothorax. Persistent bibasilar pneumonia/atelectasis. Electronically Signed: Munir Farias MD at 9:34 EST , Physical Exam Const General Appearance: lethargic and frail HEENT normocephalic Eyes PERRL, EOMs intact bilaterally and conjunctivae normal Neck full ROM Chest Chest: chest tube right Resp Resp Narrative: Shallow respirations, but no accessory muscle use Auscultation: rales right; Negative for rhonchi or wheezes Percussion: dullness Lower: right Cardio regular rate, regular rhythm, S1 normal heart sound, S2 normal heart sound, no rub and no gallops Heart Sounds: murmur systolic II/ harsh early right sternal border GI GI Narrative: Scaphoid abdomen Extremity no clubbing, cyanosis or edema Skin Skin Narrative: Areas of bruising noted Neuro Neuro Narrative: Some movement of all extremities Psych Mood & Affect: flat affect Charges/Coding Visit Charges Inpatient E&M: 30499 Subs Hosp L3
--- NOTE | 2022-10-26 10:07 | ECHOD_ITS ---
Reason For Study: Concern for Endocarditis Procedure This was a 2D Doppler, Color Flow transthoracic echocardiogram. Exam performed portable in patient room. Left Ventricle Normal LV size. Left ventricular systolic function is normal. The estimated ejection fraction is 65 %. No regional wall motion abnormalities noted. Right Ventricle Normal RV size. Normal systolic function. Atria Normal left atrium. Normal right atrium. Mitral Valve Bileaflet diffuse mitral valve thickening. Mild (1+) eccentric mitral valve insufficiency. Tricuspid Valve Normal tricuspid valve. Mild tricuspid valve insufficiency. Mild pulmonary hypertension. Pulmonary artery systolic pressure is 44 mmHg. Aortic Valve Trisinus/trileaflet aortic valve. Mild focal aortic valve thickening. Pulmonic Valve Normal pulmonic valve. Great Vessels Mildly dilated aortic root. The pulmonary artery is normal size. Normal inferior vena cava. Pericardium/Pleural No pericardial effusion. MMode/2D Measurements & Calculations LVIDd: 5.2 cm IVSd: 0.67 cm Ao root diam: 3.9 cm LVIDs: 2.5 cm LVPWd: 1.00 cm RVDd: 4.3 cm FS: 51.9 % LAV(MOD-bp): 58.7 ml LVAd ap4: 24.9 cm2 SV(MOD-sp4): 47.6 ml LAV(MOD-bp) Indexed: 37.0 ml/m2 LVLd ap4: 6.8 cm LAV(MOD-sp2): 42.7 ml EDV(MOD-sp4): 73.2 ml LAV(MOD-sp4): 75.8 ml EDV(sp4-el): 77.0 ml LVAs ap4: 12.6 cm2 LVLs ap4: 5.4 cm ESV(MOD-sp4): 25.6 ml ESV(sp4-el): 24.9 ml EF(MOD-sp4): 65.0 % EF(sp4-el): 67.6 % SV(sp4-el): 52.1 ml LA A4 area: 23.7 cm2 LA dimension(2D): 4.1 cm RA A4 area: 20.5 cm2 Doppler Measurements & Calculations MV E max chetan: 73.3 cm/sec Lat Peak E' Chetan: 4.0 cm/sec Med Peak E' Chetan: 4.1 cm/sec MV A max chetan: 77.8 cm/sec E/E' lat: 18.1 E/E' med: 17.8 MV E/A: 0.94 Ao V2 max: 117.8 cm/sec LV V1 max: 103.9 cm/sec PA V2 max: 87.2 cm/sec Ao max P.6 mmHg LV V1 max P.3 mmHg Ao V2 mean: 83.4 cm/sec Ao mean P.0 mmHg Ao V2 VTI: 29.0 cm PI end-d chetan: 165.3 cm/sec TR max chetan: 320.8 cm/sec TR max P.2 mmHg ECHO/Echo Complete Interpretation Summary Normal LV size. Left ventricular systolic function is normal. The estimated ejection fraction is 65 %. Mild (1+) eccentric mitral valve insufficiency. Mild pulmonary hypertension. Pulmonary artery systolic pressure is 44 mmHg. Ordering Physician: Ulisses Verdin Referring Physician: Eduardo Welch Performed By: Katie Crump, MAGDALENA, RVT
[2022-10-26] MEDS: 0.9% Normal Saline 1,000 ML 75 ML IV (11:47)
--- NOTE | 2022-10-26 14:43 | NURSING ---
Consult called to [facility]. Stated she would call back once a meeting time with family has been established.
--- NOTE | 2022-10-26 15:03 | NURSING ---
Dr Enriquez spoke at length w/ family and decision was made to go Hospice family aware that hospice has verified they will be here @ 1600
[2022-10-26] MEDS: Acetaminophen 650 MG Suppository RC (20:45)
[2022-10-27 00:03] VITALS: BP 174/93; PULSE 61; RESP 18; TEMP 36.6; O2SAT 97
[2022-10-27 00:49] VITALS: BP 174/93; PULSE 61
[2022-10-27] MEDS: 0.9% Saline Lock 10 ML Syringe IV (00:49)
[2022-10-27] MEDS: hydrALAZINE 20 MG/ML Vial 5 MG IV (00:49)
[2022-10-27] MEDS: morphine (oral solution) 10MG/0.5ML Syringe 5 MG SL/PO ×3 (01:01→14:21)
[2022-10-27] MEDS: Acetaminophen 650 MG Suppository RC ×3 (03:51→14:09)
[2022-10-27 05:00] VITALS: BP 160/80; PULSE 61; RESP 18; TEMP 36.1; O2SAT 97
[2022-10-27 07:30] VITALS: PULSE 56; RESP 24; O2SAT 92
[2022-10-27] MEDS: Budesonide Respules 0.5 MG/2 ML AMPUL.NEB. INHALATION (07:30)
--- NOTE | 2022-10-27 07:30 | CPS ---
Pt kept trying to take aerosol mask off, grabbed this RT's had and squeezed it hard, pt not cooperative @this time.
[2022-10-27] MEDS: Azelastine HCl NASAL.SRY 2 SPRAY NASAL (08:43)
[2022-10-27] MEDS: Lidocaine 5% Patch 2 PATCH TOPICAL (08:44)
[2022-10-27 10:00] VITALS: BP 149/82; PULSE 44; RESP 20; TEMP 36.3; O2SAT 97
--- NOTE | 2022-10-27 10:39 | PCM.DC ---
Discharge Instructions Diet Discharge Diet: Light diet - advance as tolerated Activity Discharge Activity: May Not Drive Dressing / Incision Call your doctor if you observe: - (Patient is going inpatient hospice care) Follow Up Care Test Results: Test results from this visit will be discussed in further detail at your follow-up appointment, if applicable. Discharge Plan Admission Admit Date/Time: 10/25/22 03:09 Primary Reason for Your Visit: Disability, no functional activity, or pneumothorax/aspiration pneumonia Attending Provider: Fredo Dougherty Primary Care Provider: Eduardo Welch Consulting Providers: Leonides Painter ; Ulisses Verdin ; Abigail Good ; Vel Fuentes ; Pati Blanco ; Demetria Jane ; Anali Ramon NP ; Ekaterina Enriquez Instructions Additional Instructions / Restrictions: Patient is discharged to inpatient hospice care. Discharge Orders/Prescriptions Prescriptions: New albuterol sulfate 2.5 mg /3 mL (0.083 %) Solution For Nebulization 2.5 mg inhalation Q2H PRN PRN (Reason: SOB/Wheezing) Qty: 0 0RF Continued azelastine 137 mcg (0.1 %) Aerosol,[place] 2 spray INTRANASAL BID magnesium 500 mg Tablet 500 mg PO BID hydralazine 25 mg Tablet 50 mg PO BID 30 Days Qty: 120 0RF lidocaine 5 % Adhesive Patch,Medicated 2 patch topical DAILY 14 Days Qty: 28 0RF Protocol: *Topical Application Instructions APPLICATION INSTRUCTIONS: Apply to R mid hemithorax d/t rib fracture pain ipratropium-albuterol 0.5 mg-3 mg(2.5 mg base)/3 mL Solution For Nebulization 3 ml INHALATION QHS PRN (Reason: shortness of breath) 30 Days Qty: 90 0RF budesonide 0.5 mg/2 mL Suspension For Nebulization 0.5 mg INHALATION BID 30 Days Qty: 120 0RF Rx Instructions: 2 puffs BID aspirin 81 mg Tablet,Chewable 81 mg PO DAILY 30 Days Qty: 30 0RF memantine 10 mg Tablet 10 mg PO BID 30 Days Qty: 60 0RF cholecalciferol (vitamin D3) 25 mcg (1,000 unit) Tablet,Chewable 1,000 unit PO DAILY 30 Days Qty: 30 0RF rivastigmine [Exelon Patch] 13.3 mg/24 hour Patch 24 Hour 13.3 mg TRANSDERMAL DAILY 30 Days Qty: 30 0RF Discontinued atenolol 50 mg Tablet 25 mg PO BID 30 Days Qty: 30 0RF simvastatin 40 mg Tablet 40 mg PO QHS 30 Days Qty: 30 0RF Referrals / Follow Up: Eduardo Welch DO [Primary Care Provider] - Disposition Disposition (needs filled in before D/C Order can be placed): Hospice in Medical Facility
--- NOTE | 2022-10-27 11:18 | CASEMGMT ---
JOHNIE called Reba with [facility] regarding an update. Reba said they did not have a bed for patient yesterday. Patient is from [place]. Reba asked if patient would be able to go back to [place] and Hospice follow there. JOHNIE let Reba know that patient's RN did give patient Roxanol today due to pain and patient's heart rate is dropping into 40's. Reba said she will send a nurse in to re-evaluate patient. She will then check to see if they may have a bed later on today. JOHNIE updated RN. Temitope Jung LOG DRIVER SHIV
--- NOTE | 2022-10-27 12:08 | PCM.PN.INT ---
Assessment & Plan Assessment/Plan (1) Hemopneumothorax on right: (2) Multiple fractures of ribs of right side: (3) Acute encephalopathy: PLAN: Plan RECOMMENDATIONS: 1. Obtain follow-up chest x-ray. 2. Plan to continue chest tube to wall suction for now. 3. If pneumothorax is improved, will consider chest tube to waterseal tomorrow. 4. Continue empiric antimicrobials. 5. Dietary advancement per speech therapy recommendations. IMPRESSIONS: 1. Acute traumatic hydropneumothorax on the right secondary to rib fractures Unclear if patient has an element of aspiration pneumonia in addition to a hydropneumothorax. Chest tube has been placed. Good response to application of suction. Plan to obtain follow-up chest x-ray at this time. Continue supplemental oxygen as ordered. If the pneumothorax has resolved, will consider chest tube to waterseal, beginning tomorrow. In the interim, plan to continue empiric antimicrobials. Speech therapy is following to assist with dietary recommendations. 2. Acute metabolic encephalopathy/dementia/debility/protein malnutrition/advanced age Complicates care, management, recovery and prognosis. The patient does have a diagnosis of Alzheimer's dementia at baseline, but is not interacting at this time. The patient has significant debility. Nutrition services and speech therapy are following. Poor long-term prognosis in my opinion. Consider reevaluation of goals of therapy. This note was generated with [employer] dictation software. It may contain incorrect words, spelling, and punctuation that were not noted in checking the note before signing. Subjective Subjective The patient was seen and examined at the bedside this morning. Events from the last 24 hours have been reviewed. The patient is currently afebrile, hemodynamically stable and maintaining appropriate oxygen saturations on 5 L/min via nasal cannula. The patient appears nonverbal and does not provide any additional details this morning. A repeat chest x-ray was never obtained this morning. Objective Data Objective Data The patient's most recent lab work, culture data and imaging studies have all been personally reviewed. Vital Signs: Vital Signs Temp Pulse Resp BP Pulse Ox O2 Del Method O2 Flow Rate 96.9 F L 56 L 24 H 160/80 H 92 Nasal Cannula 5 10/27/22 05:00 10/27/22 07:30 10/27/22 07:30 10/27/22 05:00 10/27/22 07:30 10/27/22 07:30 10/27/22 07:30 Oxygen Flow Rate (L/min) 5 Oxygen Delivery Method Nasal Cannula Weight: 113 lb 5.082 oz Body Mass Index (BMI) 17.7 Intake & Output: Intake and Output for Last 24 Hours 10/25/22 10/26/22 10/27/22 23:59 23:59 23:59 Intake Total 1771.00 / 1771.00 2875.25 / 2875.25 574.0 / 574.0 Output Total 1350 / 1350 710 / 1810 1450 / 1450 Balance 421.00 / 421.00 2165.25 / 1065.25 -876.0 / -876.0 Medical Nutrition Assessment Dietitian: Malnutrition Criteria Met Start: 10/25/22 13:57 Freq: Status: Active Protocol: Document 10/25/22 13:57 KAREN (Rec: 10/25/22 13:57 SLA [id number]) Nutrition Malnutrition Evidence of Malnutrition Exists Yes Malnutrition (severe): Acute Illness/Injury Evidenced By Suboptimal Energy Intake ( Severe),Weight Loss (Severe), Physical Changes (Moderate) Clinical Problem Acute Disease or Injury Related Malnutrition Etiology related to issues chewing/ swallowing, dementia and inability to consume adequate nutrition to meet est nutritional needs Signs/Symptoms as evidenced by 12.9% wt loss and po intake meeting <75% of est nutritional needs, BMI <18 , fat/muscle wasting in face, torso, upper/lower extrimities Status Active Problem Recommendation Dietitian Recommendations/Changes Rec liberal regular diet d/t signs/symptoms of malnutrition - consistency per INSTRUMENT MECHANIC WEAPONS SYSTEM Rec 4 oz ensure plus high protein 4x/day w/ medpass when able to resume po diet Rec ensure pudding or magic cup w/ lunch and dinner when medically able to resume po diet Will consult INSTRUMENT MECHANIC WEAPONS SYSTEM re: swallowing/possible aspiration PNA Lab / Micro Data Attestation: I reviewed the patient's lab results. Result Diagrams: 10/26/22 07:30 10/26/22 07:30 Micro: Microbiology 10/24/22 22:34 Blood Culture (Wb) - Anticubital Left Blood Culture - Final Staphylococcus epidermidis 10/24/22 22:39 Blood Culture (Wb) - Venous Bacteria Detection (PCR) - Final Staphylococcus epidermidis 10/24/22 22:39 Blood Culture (Wb) - Venous Blood Culture - Final Staphylococcus epidermidis 10/25/22 03:19 Urine Catheter - Khan Legionella Antigen - Final 10/25/22 03:19 Urine Catheter - Khan Streptococcus pneumoniae Antigen (M - Final Physical Exam Const General Appearance: lethargic and frail HEENT normocephalic and head/scalp atraumatic Eyes PERRL and EOMs intact bilaterally Neck supple General: trachea midline Chest Chest Narrative: No air leak noted in the Pleur-evac. Chest: chest tube right Resp normal respiratory effort and no use of accessory muscles Auscultation: diminished lung sounds Cardio regular rate and regular rhythm Heart Sounds: murmur GI normal to inspection, nondistended, normoactive bowel sounds Extremity no clubbing, cyanosis or edema Skin Skin Narrative: Spontaneously moves extremities. Will not answer questions. Unclear baseline mental status. Psych Mood & Affect: flat affect Charges/Coding Visit Charges Inpatient E&M: 07531 Subs Hosp L3
--- NOTE | 2022-10-27 12:09 | RAD_ITS ---
STUDY: X-RAY CHEST REASON FOR EXAM: Male, 81 years old. PTX follow up TECHNIQUE: Single AP portable view of the chest. COMPARISON: Comparison is made with prior study generate 2022. FINDINGS: The right-sided pigtail catheter is seen overlying the lateral midportion of the right hemithorax. This is unchanged. EKG electrodes are seen. 5-10% right apical pneumothorax. Stable bibasilar atelectasis and/or infiltrate more prominent on the left side. There is borderline cardiomegaly. Normal mediastinum and hilton. Normal visualized pulmonary arteries. There is atherosclerotic calcification of the aortic arch with tortuosity. There are diffuse degenerative changes of the visualized thoracic spine. There is degenerative osteoarthritis of the bilateral shoulders. There is no demonstrated abnormality of the visualized soft tissue structures of the upper abdomen. RAD/Chest 1 View (Portable) IMPRESSION: Stable mild right apical pneumothorax. Electronically Signed: Doroteo Davis MD at 13:59 EST ,
--- NOTE | 2022-10-27 12:09 | PN.HOSP_ITS ---
Objective Data Objective Data Vital Signs: Vital Signs Temp Pulse Resp BP Pulse Ox O2 Del Method O2 Flow Rate 96.9 F L 56 L 24 H 160/80 H 92 Nasal Cannula 5 10/27/22 05:00 10/27/22 07:30 10/27/22 07:30 10/27/22 05:00 10/27/22 07:30 10/27/22 07:30 10/27/22 07:30 Oxygen Flow Rate (L/min) 5 Oxygen Delivery Method Nasal Cannula Weight: 113 lb 5.082 oz Body Mass Index (BMI) 17.7 Intake & Output: Intake and Output for Last 24 Hours 10/25/22 10/26/22 10/27/22 23:59 23:59 23:59 Intake Total 1771.00 / 1771.00 2875.25 / 2875.25 574.0 / 574.0 Output Total 1350 / 1350 710 / 1810 1450 / 1450 Balance 421.00 / 421.00 2165.25 / 1065.25 -876.0 / -876.0 Medical Nutrition Assessment Dietitian: Malnutrition Criteria Met Start: 10/25/22 13:57 Freq: Status: Active Protocol: Document 10/25/22 13:57 KAREN (Rec: 10/25/22 13:57 SLA [id number]) Nutrition Malnutrition Evidence of Malnutrition Exists Yes Malnutrition (severe): Acute Illness/Injury Evidenced By Suboptimal Energy Intake ( Severe),Weight Loss (Severe), Physical Changes (Moderate) Clinical Problem Acute Disease or Injury Related Malnutrition Etiology related to issues chewing/ swallowing, dementia and inability to consume adequate nutrition to meet est nutritional needs Signs/Symptoms as evidenced by 12.9% wt loss and po intake meeting <75% of est nutritional needs, BMI <18 , fat/muscle wasting in face, torso, upper/lower extrimities Status Active Problem Recommendation Dietitian Recommendations/Changes Rec liberal regular diet d/t signs/symptoms of malnutrition - consistency per SIZING MACHINE TENDER Rec 4 oz ensure plus high protein 4x/day w/ medpass when able to resume po diet Rec ensure pudding or magic cup w/ lunch and dinner when medically able to resume po diet Will consult SIZING MACHINE TENDER re: swallowing/possible aspiration PNA Lab / Micro Data Result Diagrams: 10/26/22 07:30 10/26/22 07:30 Micro: Microbiology 10/24/22 22:34 Blood Culture (Wb) - Anticubital Left Blood Culture - Final Staphylococcus epidermidis 10/24/22 22:39 Blood Culture (Wb) - Venous Bacteria Detection (PCR) - Final Staphylococcus epidermidis 10/24/22 22:39 Blood Culture (Wb) - Venous Blood Culture - Final Staphylococcus epidermidis 10/25/22 03:19 Urine Catheter - Khan Legionella Antigen - Final 10/25/22 03:19 Urine Catheter - Khan Streptococcus pneumoniae Antigen (M - Final Physical Exam Narrative General: Confused, appears to be in some discomfort, not oriented to person, place or time HEENT: Atraumatic, PERRLA, EOMI, Normocephalic Oral: Moist Mucosa Neck: Supple Lungs: Diminished, status post right side chest tube Cardiovascular: Regular rate, Regular Rhythm, Normal S1, Normal S2, No murmurs Abdomen: Bowel Sounds Present, Soft, Non Tender, Non-Distended, No Hepato- splenomegaly Extremities: No edema Skin: No rashes Neurological: Cranial nerves II-XII grossly intact, Neuro grossly intact Psych/Mental Status: Normal Affect, Appropriate Assessment & Plan Assessment/Plan (1) Hemopneumothorax on right: (2) Aspiration pneumonia due to vomit: PLAN: Plan 1. Acute hypoxia secondary to pneumothorax/aspiration pneumonia Patient remains on 5 L of oxygen Pulmonology following, continue to wean off for SPO2 more than 94% 2. Acute hemopneumothorax secondary to rib fractures, status post right chest tube placement Repeat chest x-ray today shows stable 10% right apical pneumothorax We will continue with chest tube 3. Staph epidermides/coag negative bacteremia, continue on Unasyn 4. Severe dysphagia secondary to hypoactive delirium/aspiration pneumonia, Speech therapy following, kept n.p.o., continue on Unasyn 5. Acute hypoactive delirium in a patient with dementia, patient is hospice eligible after discussion with family Would continue on scheduled rectal Tylenol, controlled with morphine as needed 6. Hypercalcemia, persistent, continue IV fluids 7. Hyponatremia secondary to dehydration, sodium is 150 Will start on D5 water 8. Severe protein calorie malnutrition, patient is unable to eat, hospice eligible 9. Dementia, Alzheimer's, end-stage, hospice eligible 10. DVT prophylaxis -SCDs
--- NOTE | 2022-10-27 14:38 | CASEMGMT ---
JOHNIE received a call from Reba at Hospice and they will be at [facility] to grape picker patient at 4p. JOHNIE notified physician, RN and personal secretary. JOHNIE did talk with Julia at [facility] and let her know as well. Plan: d/c to [facility] inpatient unit. Temitope CHANEY
--- NOTE | 2022-10-27 14:44 | DS.PCM_ITS ---
Providers Date of Admission: 10/25/22 Date of Discharge: 10/27/22 Primary Care Physician: Dr. Eduardo Welch, Consultations 10/25/22 04:21 Consult: Acid Dumper / Pulmonary Medicine Routine Consulting Provider: Ulisses Verdin Reason for Consult: pneumothorax; pleural effusion EMERGENT Consult: No Notified: Yes Date Notified: 10/25/22 Time Notified: 06:30 Method of Notification: Text 10/26/22 14:37 Consult: Hospice / Palliative Care Routine Consulting Provider: [facility] Reason for Consult: End of life EMERGENT Consult: No Notified: Yes Date Notified: 10/26/22 Time Notified: 14:38 Method of Notification: Answering Service Reason For Visit: PNEUMOTHORAX; PNEUMONIA Diagnosis Discharge Diagnosis (1) Hemopneumothorax on right: Status: Acute Code(s): J94.2 - Hemothorax (2) Multiple fractures of ribs of right side: Status: Acute Code(s): S22.41XA - Multiple fractures of ribs, right side, initial encounter for closed fracture (3) Acute encephalopathy: Status: Acute Code(s): G93.40 - Encephalopathy, unspecified Plan This is a 31-year-old gentleman who was admitted with somnolence for 1 day prior to ED presentation. Patient has been coughing for 2 to 3 days, nonproductive. Patient has not been eating or adequate oral intake. Patient fell in September around 10/09 when he was admitted with right-sided fracture of ribs #2 patient [facility] from where he was readmitted 1.? Acute hypoxia secondary to pneumothorax/aspiration pneumonia Patient remains on 5 L of oxygen Pulmonology following, continue to wean off for SPO2 more than 94% 2. Acute hemopneumothorax secondary to rib fractures, status post right chest tube placement Repeat chest x-ray today shows stable 10% right apical pneumothorax seen by embryology teacher. Continued wall suction. In the meantime patient's family agreed for inpatient hospice care therefore is being transferred to hospice care 3.? Staph epidermides/coag negative bacteremia, continue on Unasyn Patient cannot take oral therefore IV antibiotic discontinued today 4.? Severe dysphagia secondary to hypoactive delirium/aspiration pneumonia, Speech therapy following, kept n.p.o., continue on Unasyn 5.? Acute hypoactive delirium in a patient with dementia, patient is hospice eligible after discussion with family Would continue on scheduled rectal Tylenol, controlled with morphine as needed 6.? Hypercalcemia, persistent, continue IV fluids 7.? Hyponatremia secondary to dehydration, sodium is 150 Was treated with D5W. 8. Severe protein calorie malnutrition, patient is unable to eat, hospice eligible 9. Dementia, Alzheimer's, end-stage, hospice eligible 10.? DVT prophylaxis -SCDs Discharge medication reconciliation done. Discharge follow-up instructions completed. Discharge process discussed with the patient and all questions were answered to patient's satisfaction. Discharge to inpatient hospice care. Total time spent, exact 35 minutes on discharge meds reconciliation, examination, coordination of care with nurses and ancillary staff, review of imaging and blood test and discussion with the patient on follow-up instructions. Medications at Discharge Home Medications azelastine 137 mcg (0.1 %) nasal spray aerosol 2 spray intranasal BID 10/21/21 magnesium 500 mg tablet 500 mg PO BID 10/21/21 aspirin 81 mg chewable tablet 81 mg PO DAILY 30 days #30 tabs 10/14/22 budesonide 0.5 mg/2 mL suspension for nebulization 0.5 mg (2 mL) inhalation BID 30 days #120 mL 10/14/22 cholecalciferol (vitamin D3) 25 mcg (1,000 unit) chewable tablet 1,000 unit PO DAILY 30 days #30 tabs 10/14/22 hydralazine 25 mg tablet 50 mg PO BID 30 days #120 tabs 10/14/22 ipratropium 0.5 mg-albuterol 3 mg (2.5 mg base)/3 mL nebulization soln 3 ml in halation QHS PRN shortness of breath 30 days #90 mL 10/14/22 lidocaine 5 % topical patch 2 patch topical DAILY 14 days #28 ea 10/14/22 memantine 10 mg tablet 10 mg PO BID 30 days #60 tabs 10/14/22 rivastigmine 13.3 mg/24 hour transdermal patch (Exelon Patch) 13.3 mg transdermal DAILY 30 days #30 ea 10/14/22 albuterol sulfate 2.5 mg/3 mL (0.083 %) solution for nebulization 2.5 mg (3 mL) inhalation Q2H PRN PRN SOB/Wheezing #0 mL 10/27/22 Physical Exam Narrative Seen and examined the morning General:, Frail, Haldol, very lethargic HEENT: Atraumatic, PERRLA, EOMI, Normocephalic Oral: Oral mucosa dry. No Gingival or Mucosal Lesions/ Ulcerations Neck: Supple, No JVD, Negative Carotid Bruits Lungs: Right-sided chest tube. No airleak. Air entry diminished in bilateral lungs. No crepitation/rhonchi. On oxygen Cardiovascular: Regular rate, Regular Rhythm, Normal S1, Normal S2, No murmurs Abdomen: Bowel Sounds Present, Soft, Non Tender, Non-Distended : No renal angle tenderness. No suprapubic tenderness. Extremities: No edema, Capillary Refill Less than 3 Seconds Skin: No rashes, No breakdown Musculoskeletal: No Tenderness to Palpation of Joints or Extremities, ROM restricted. Moderate muscle atrophy of extremities Neurological: Lethargic, DTR 2+/4 and Symmetrical, no focal neurodeficit Psych/Mental Status: Sleepy. When I saw the patient in the afternoon He was with his . Patient is more awake, eyes open. Uttering few words, incomprehensible. Medical Records Data Medical Nutrition Assessment Dietitian: Malnutrition Criteria Met Start: 10/25/22 13:57 Freq: Status: Active Protocol: Document 10/25/22 13:57 [facility] (Rec: 10/25/22 13:57 [facility] [id number]) Nutrition Malnutrition Evidence of Malnutrition Exists Yes Malnutrition (severe): Acute Illness/Injury Evidenced By Suboptimal Energy Intake ( Severe),Weight Loss (Severe), Physical Changes (Moderate) Clinical Problem Acute Disease or Injury Related Malnutrition Etiology related to issues chewing/ swallowing, dementia and inability to consume adequate nutrition to meet est nutritional needs Signs/Symptoms as evidenced by 12.9% wt loss and po intake meeting <75% of est nutritional needs, BMI <18 , fat/muscle wasting in face, torso, upper/lower extrimities Status Active Problem Recommendation Dietitian Recommendations/Changes Rec liberal regular diet d/t signs/symptoms of malnutrition - consistency per DIRECTOR PEDIATRIC Rec 4 oz ensure plus high protein 4x/day w/ medpass when able to resume po diet Rec ensure pudding or magic cup w/ lunch and dinner when medically able to resume po diet Will consult DIRECTOR PEDIATRIC re: swallowing/possible aspiration PNA Weight / BMI Weight Weight: 113 lb 5.082 oz Body Mass Index (BMI) 17.7 ABG / Lab / Microbiology Data Result Diagrams: 10/26/22 07:30 10/26/22 07:30 Microbiology: Microbiology 10/24/22 22:34 Blood Culture (Wb) - Anticubital Left Blood Culture - Final Staphylococcus epidermidis 10/24/22 22:39 Blood Culture (Wb) - Venous Bacteria Detection (PCR) - Final Staphylococcus epidermidis 10/24/22 22:39 Blood Culture (Wb) - Venous Blood Culture - Final Staphylococcus epidermidis 10/25/22 03:19 Urine Catheter - Khan Legionella Antigen - Final 10/25/22 03:19 Urine Catheter - Khan Streptococcus pneumoniae Antigen (M - Final Radiography Diagnostic Testing: Radiology Impression Echocardiogram 10/26/22 10:07 Interpretation Summary Normal LV size. Left ventricular systolic function is normal. The estimated ejection fraction is 65 %. Mild (1+) eccentric mitral valve insufficiency. Mild pulmonary hypertension. Pulmonary artery systolic pressure is 44 mmHg. Ordering Physician: Ulisses Verdin Referring Physician: Eduardo Welch Performed By: Katie Crump RDCS, RVT Chest X-Ray 10/27/22 12:09 IMPRESSION: Stable mild right apical pneumothorax. Electronically Signed: Doroteo Davis MD at 13:59 EST , D/C Instructions Discharge Diet: Light diet - advance as tolerated Call your doctor if you observe: - (Patient is going inpatient hospice care) Meaningful Use Info Meaningful Use Diagnoses (Choose all that apply): None applicable Discharge Plan Admission Admit Date/Time: 10/25/22 03:09 Primary Reason for Your Visit: Disability, no functional activity, or pneumothorax/aspiration pneumonia Attending Provider: Fredo Dougherty Primary Care Provider: Eduardo Welch Consulting Providers: Leonides Painter ; Ulisses Verdin ; Abigail Good ; Vel Fuentes ; Pati Balnco ; Demetria Jane ; Anali Ramon NP ; Ekaterina Enriquez Instructions Additional Instructions / Restrictions: Patient is discharged to inpatient hospice care. Discharge Orders/Prescriptions Prescriptions: New albuterol sulfate 2.5 mg /3 mL (0.083 %) Solution For Nebulization 2.5 mg inhalation Q2H PRN PRN (Reason: SOB/Wheezing) Qty: 0 0RF Continued azelastine 137 mcg (0.1 %) Aerosol,Pierce 2 spray INTRANASAL BID magnesium 500 mg Tablet 500 mg PO BID hydralazine 25 mg Tablet 50 mg PO BID 30 Days Qty: 120 0RF lidocaine 5 % Adhesive Patch,Medicated 2 patch topical DAILY 14 Days Qty: 28 0RF Protocol: *Topical Application Instructions APPLICATION INSTRUCTIONS: Apply to R mid h emithorax d/t rib fracture pain ipratropium-albuterol 0.5 mg-3 mg(2.5 mg base)/3 mL Solution For Nebulization 3 ml INHALATION QHS PRN (Reason: shortness of breath) 30 Days Qty: 90 0RF budesonide 0.5 mg/2 mL Suspension For Nebulization 0.5 mg INHALATION BID 30 Days Qty: 120 0RF Rx Instructions: 2 puffs BID aspirin 81 mg Tablet,Chewable 81 mg PO DAILY 30 Days Qty: 30 0RF memantine 10 mg Tablet 10 mg PO BID 30 Days Qty: 60 0RF cholecalciferol (vitamin D3) 25 mcg (1,000 unit) Tablet,Chewable 1,000 unit PO DAILY 30 Days Qty: 30 0RF rivastigmine [Exelon Patch] 13.3 mg/24 hour Patch 24 Hour 13.3 mg TRANSDERMAL DAILY 30 Days Qty: 30 0RF Discontinued atenolol 50 mg Tablet 25 mg PO BID 30 Days Qty: 30 0RF simvastatin 40 mg Tablet 40 mg PO QHS 30 Days Qty: 30 0RF Referrals / Follow Up: Eduardo Welch DO [Primary Care Provider] - Disposition Disposition (needs filled in before D/C Order can be placed): Hospice in Medical Facility Charges/Coding Visit Charges Inpatient E&M: 73105 Disch Hosp >30min
[2022-10-27 15:10] VITALS: BP 154/87; PULSE 46; RESP 20; TEMP 36.3; O2SAT 97
--- NOTE | 2022-10-27 15:56 | PHA.DC.MR ---
Pharmacy Service has performed discharge medication reconciliation for this patient. The patient's discharge medication list was reviewed for discrepancies and discrepancies were resolved. Home Medications azelastine 137 mcg (0.1 %) nasal spray aerosol 2 spray intranasal BID 10/21/21 magnesium 500 mg tablet 500 mg PO BID 10/21/21 aspirin 81 mg chewable tablet 81 mg PO DAILY 30 days #30 tabs 10/14/22 budesonide 0.5 mg/2 mL suspension for nebulization 0.5 mg (2 mL) inhalation BID 30 days #120 mL 10/14/22 cholecalciferol (vitamin D3) 25 mcg (1,000 unit) chewable tablet 1,000 unit PO DAILY 30 days #30 tabs 10/14/22 hydralazine 25 mg tablet 50 mg PO BID 30 days #120 tabs 10/14/22 ipratropium 0.5 mg-albuterol 3 mg (2.5 mg base)/3 mL nebulization soln 3 ml inhalation QHS PRN shortness of breath 30 days #90 mL 10/14/22 lidocaine 5 % topical patch 2 patch topical DAILY 14 days #28 ea 10/14/22 memantine 10 mg tablet 10 mg PO BID 30 days #60 tabs 10/14/22 rivastigmine 13.3 mg/24 hour transdermal patch (Exelon Patch) 13.3 mg transdermal DAILY 30 days #30 ea 10/14/22 albuterol sulfate 2.5 mg/3 mL (0.083 %) solution for nebulization 2.5 mg (3 mL) inhalation Q2H PRN PRN SOB/Wheezing #0 mL 10/27/22
--- NOTE | 2022-10-27 16:05 | NURSING ---
Report given to [facility] hospice transport who will take pt to [facility]
--- NOTE | 2022-10-27 16:05 | NURSING ---
Report called to [facility] nurse Lavern GIFFORD who will assume care of pt when he arrives there.
== END 2022-10-27 16:21 | disposition hospice, inpatient (51) | DRG 177 ==
LOC: ED 10-25 03:14 → PCU 10-25 03:39
PROVIDERS: Internal Medicine Critical Care Medicine; Admitting Provider Hospitalist; Emergency Provider Emergency Medicine; Visit Provider Internal Medicine
DX: J69.0 Pneumonitis due to inhalation of food and vomit (principal); E43 Unspecified severe protein-calorie malnutrition; J96.21 Acute and chronic respiratory failure with hypoxia; G93.41 Metabolic encephalopathy; S27.2XXA Traumatic hemopneumothorax, initial encounter; F05 Delirium due to known physiological condition; N17.9 Acute kidney failure, unspecified; E87.0 Hyperosmolality and hypernatremia; S22.41XA Multiple fractures of ribs, right side, initial encounter for closed fracture; J98.11 Atelectasis; Z68.1 Body mass index [BMI] 19.9 or less, adult; G30.1 Alzheimer's disease with late onset; F02.80 Dementia in other diseases classified elsewhere, unspecified severity, without behavioral disturbance, psychotic disturbance, mood disturbance, and anxiety; I10 Essential (primary) hypertension; E83.52 Hypercalcemia; E87.8 Other disorders of electrolyte and fluid balance, not elsewhere classified; W19.XXXA Unspecified fall, initial encounter; F17.210 Nicotine dependence, cigarettes, uncomplicated; B95.7 Other staphylococcus as the cause of diseases classified elsewhere; Z66 Do not resuscitate; Z79.82 Long term (current) use of aspirin; Z79.899 Other long term (current) drug therapy
CPT/HCPCS: 32551; 36415; 36600; 51702; 70450; 71045; 80048; 80053; 81001; 82803; 83605; 83735; 85025; 87040; 87077; 87149; 87186; 87449; 93005; 93306; 94640; 99285; J7030; J7040; A4216; J0295